=== PATIENT | female | born 1955 | race Caucasian/White ===

== ENCOUNTER 2017-07-15 14:44 | Inpatient (IN) | payer OTHER ==
[~2017-07-15] VITALS: Ht 172.7 cm; Wt 113.8 kg
[~2017-07-15 14:44] MED LIST: APAP/CODEINE PO; ASPI81TA16 PO; CHOL200025 PO; CYCL10TA9 PO; DICL100G26 TOPICAL; DICY20TA10 PO; LOSA100T29 PO; METF500T4 PO; MVI; OMEP40CA36 PO; ROSU40TA PO
[2017-07-15] MEDS ORDERED: ROSU40TA20 PO (15:48)
[2017-07-15] MEDS ORDERED: LOSA100T29 PO (15:48)
[2017-07-15] MEDS ORDERED: ASPI81TA3 PO (15:48)
[2017-07-15 16:01] VITALS: BP 132/64; PULSE 97; RESP 24; O2SAT 97
[2017-07-15] MEDS ORDERED: HYDR-3825 PO (16:17)
[2017-07-15] MEDS ORDERED: HYDROmorphone 0.5 mg/0.5 mL iSecure Syringe IVPUSH ONE (16:45)
[2017-07-15] MEDS ORDERED: HYDROmorphone 0.5 mg/0.5 mL iSecure Syringe IVPUSH PRN ×2 (16:50→20:15)
[2017-07-15] MEDS ORDERED: HYDROcodone-APAP 5-325 mg Tablet PO PRN (17:10)
[2017-07-15] MEDS ORDERED: Alum-Mag Hydrox-Simeth 30 mL Suspension PO PRN (17:10)
[2017-07-15] MEDS ORDERED: Ondansetron 2 mg/mL 2 mL Inj IVPUSH PRN (17:10)
[2017-07-15] MEDS ORDERED: Glucose 40% Oral Gel 15 Gm Tube PO PRN (17:15)
[2017-07-15] MEDS ORDERED: Dextrose 10% 250 ML IV PRN ×2 (17:25→20:18)
[2017-07-15] MEDS: Insulin LISPRO 300 Unit/3 mL Inj SUBQ SCH ×2 (17:30→22:00)
[2017-07-15] MEDS ORDERED: Morphine PCA 1 mg/mL 30 mL Inj IV PRN (17:45)
[2017-07-15] MEDS: 0.9% Sodium Chloride 1,000 ML IV SCH (18:29)
[2017-07-15 18:42] LABS: APPEARANCE,URINE CLEAR (CLEAR,HAZY); COLOR,URINE YELLOW (YELLOW); OCCULT BLOOD,URINE MODERATE (NEGATIVE); UROBILINOGEN,URINE NORMAL (NORMAL)
[2017-07-15] MEDS: Heparin 5,000 Unit/mL Inj SUBQ SCH (18:44)
[2017-07-15 18:52] VITALS: RESP 20; O2SAT 97
--- NOTE | 2017-07-15 19:18 | CCS NOTE ---
[facility] [address] [address] MEDICAL ONCOLOGY OFFICE NOTE PATIENT: LEXY ARANGO : 1955 MR#: [id number] DATE: 07/15/2017 JOB ID: [id number] DATE: 07/15/2017 The patient was admitted through our clinic today for workup of bony lesions in the pelvis and severe pain in the right hip. For details, please refer to my consult note from the office today that led to the admission. I spoke with Dr. Gamino and for today we continue hydration and pain management and if her creatinine improves, she can maybe get contrast enhanced CT scan tomorrow with continuation of hydration support to prevent contrast nephropathy. Her pain appears to be somewhat better after the dose of Dilaudid on the floor.
--- NOTE | 2017-07-15 20:12 | PCM.HPMED ---
Subjective Date of Service Jul 15, 2017 Primary Provider: Admitting Physician: Lv Fisher DO Primary Care Physician: Manuel Villalta DO Attending Physician: Lv Fisher DO Admit Status: Direct Admit Chief Complaint: Right hip pain, metastatic disease unknown primary History of Present Illness: Mrs. Brii Ruiz is 61-year-old white female with past medical history of hypertension, diabetes, CAD, anxiety disorder presenting as a direct admit from Dr. Magallanes's office. Patient has had pain in her hip or to 3 months, was seen by her PCP for some time, apparently I will initiate treatments have failed and they have ordered an MRI which showed concern for metastatic disease prompting referral to the cancer Center. She was visiting with Dr. Magallanes for the first time today and she was noted to be in terrible severe pain even as she was getting out of her car. She was given hydrocodone, which she says has she has not taken in 2 days due to that medication making him feel anxious. Patient states that she has been taking Tylenol 3, which helped some. She also has chronic right hip pain. She states that she has no GI, urine symptoms. She denies shortness of breath large lumps or lymph nodes anywhere in her body, recent fevers or chills, recent weight loss or weight gain. She does endorse tingling in her feet and fingers which apparently is chronic for her. She denies edema in her legs. She has no headaches, numbness tingling otherwise, or dizziness. Her vital signs on arrival were stable temperature is 36.5 respirations 24 pulse 97 she was saturating fully on room air at 97%, blood pressure 132/64. Records reveal MRI pelvis that was taken on 06/26/17 showed "Several marrow space occupying lesions involve the right femoral head and neck, as well as the right ischial tuberosity, and posterior left femoral head and neck. The largest lesion involves the right femoral neck, with concomitant risk of pathologic fracture. Patchy peripheral interstitial edema within the right hip adductor musculature, presumably reactive to the nearby marrow space occupying lesions." It appears that lab work was ordered this a.m. that reveals white count of 12.6 , hemoglobin of 12.3, hematocrit 36.6, platelets 207, sodium 134 potassium 4.1 chloride 100 bicarbonate 18 B UN 35 and creatinine 1.87 increased from a baseline of 1.49 on 06/19/17. Patient also tells me that she was recently diagnosed diabetic. Review of Systems: Complete review of systems performed, pertinent positives and negatives per history of present illness, all other systems reviewed and are negative. Allergies Coded Allergies: Penicillins (Verified Allergy, Severe, facial swelling, 07/15/17) clindamycin (Verified Allergy, Severe, itching / hives, 07/15/17) Home Medications Patient's home medications included Vicodin, Tylenol 3, baby aspirin daily, metformin 500 mg twice a day by mouth, omeprazole 40 mg daily, Crestor 40 mg PMH Hyperlipidemia, hypertension, diabetes mellitus type II, CAD status post bypass 2001, anxiety, restless legs Surgical History Left hip surgery in 2011 to repair a Tendon, cholecystectomy in 2010, open heart surgery in 2001 Family History Remarkable for mother who at age 50 with heart disease and diabetes Father got diagnosed with colon cancer at age 63 Social History Occupation: used to work as a [employer] Hx Alcohol Use: No Hx Substance Use: No Hx Tobacco Use: No (quit Thursday the . has a patch on at this time.) Smoking Status: Current Every Day Smoker, Heavy Tobacco Smoker Living Arrangement: with Family Additional Information Currently on disability due to right hip pain Exam Vital Signs Vital Sign - Last Date Time Temp Pulse Resp B/P Pulse Ox O2 Delivery O2 Flow Rate FiO2 07/15/17 16:01 36.5 97 24 132/64 97 Room Air Exam General: No acute distress, pleasant, appropriately interactive HEENT: Normocephalic, atraumatic. External ears without defect. Pupils equal, round, and reactive to light and accommodation. Anicteric sclerae, moist conjunctivae, and no lid lag. Oropharynx free of erythema and cobble stoning with moist mucosa. Neck: Supple with full range of motion. No jugular venous distension. No bruits. No thyromegaly. Cardiovascular: Regular rate and rhythm with no murmurs, rubs, or gallops appreciated Pulmonary: Clear to auscultation bilaterally with no crackles, wheezes, or rhonchi. Normal respiratory effort with no use of accessory muscles. Abdomen: Bowel tones present. Soft, mildly tender diffusely, nondistended. No hepatosplenomegaly or masses appreciated. Extremities: No clubbing, cyanosis, edema, or lymphadenopathy appreciated. Skin: Normal temperature, turgor, and texture; no rash, ulcers, or subcutaneous nodules appreciated. Neurological: Cranial nerves grossly intact. and sensory function within normal limits. No known gait impairment. Symmetric a Achillis reflexes Musculoskeletal: 4/5 in left lower extremity, 5 over 5 in right. Psychiatric: Normal mood and affect. Alert and oriented to person, place, and time. Assessment & Plan This is a 61-year-old female presenting today after having been seen at the cancer center for an MRA results that showed metastasis in the hip pelvic region. She was in such severe pain that she was sent to the hospital for adequate pain control while she is being worked up for a primary and treatment. 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 -- Consult oncology -- Normal saline 100 mL per hour for hydration to improve kidney function -- We will consider CT chest abdominopelvic once renal function improves Acute on chronic kidney injury present on admission active -- Chronic kidney disease stage III per her prior records -- IV fluid hydration as above -- Hold nephrotoxic medications Diabetes mellitus type II chronic active -- Hold home medication metformin by mouth -- No scale sliding scale -- Diabetic diet Hypertension chronic presumed stable -- Hold home medications losartan due to poor renal function- -- amlodipine 5 mg by mouth instead Hyperlipidemia chronic presumed stable -- We will continue home medication Anxiety chronic presumed stable -- We will continue to monitor, patient is currently not experiencing anxiety CAD status post bypass chronic stable -- Continue aspirin, Crestor Chronic kidney disease stage III acutely worsened -- Management as above High risk medication: Morphine pump DVT prophylaxis with heparin subcutaneous 3 times a day CODE STATUS full code Alternate decision-maker , then the 3 children Patient is admitted under Inpatient status with expected length of stay greater than 2 midnights due to severity of presenting symptoms, risk of adverse event, and complexity of treatment plan. Pain Evaluation: Adequate Pain Control Resuscitation Status: CPR: Attempt Resuscitation ( is alternate decision -maker) Time spent 45 minutes Tiffanie Gamino DO Jul 15, 2017 17:13
[2017-07-15] MEDS ORDERED: HYDROmorphone PCA 0.2 mg/mL 30 mL Inj IV PRN (20:15)
[2017-07-15 20:16] VITALS: BP 138/75; PULSE 107; RESP 24; O2SAT 99
[2017-07-15 22:05] VITALS: RESP 18; O2SAT 98
[2017-07-16] VITALS (10 sets, daily range): BP systolic 110–130; BP diastolic 62–80; PULSE 81–95; RESP 14–20; O2SAT 93–99
[2017-07-16] MEDS: Heparin 5,000 Unit/mL Inj SUBQ SCH ×3 (01:27→17:50)
[2017-07-16] MEDS: 0.9% Sodium Chloride 1,000 ML IV SCH ×2 (03:08→09:14)
[2017-07-16] MEDS: Pantoprazole 40 mg ER24 Tablet PO SCH (06:30)
[2017-07-16] MEDS: Insulin LISPRO 300 Unit/3 mL Inj SUBQ SCH ×4 (08:00→21:38)
--- NOTE | 2017-07-16 12:10 | PCM.CONPAL ---
Date of Service Jul 16, 2017 Date of Hospital Admission: Jul 15, 2017 at 14:44 Date of Palliative Consult: Jul 16, 2017 Requesting Provider: Tiffanie Gamino DO Reason Palliative Care Consult: Pain Reason for Consultation Palliative Care received verbal order from Dr Gamino 07/16/17 to assist with pain management. Patient admitted 07/15/17. Pain is from metastatic cancer of unknown primary invading bone in right hip. Pt has just begun oncology work-up with Dr. Magallanes. [place] () [phone] Edna (daughter) [phone] Hospital Unit @time of consult: Orthopedic/Surgical Care (room 1019) Palliative Care Recommendation Summary of palliative recommendations: -Symptom management (Pain/other): Pain: 1. Change PUMP OILER dilaudid to include a low continuous rate. New settings are: 0.5mg IV dilaudid PUMP OILER (can be dosed q 15 minutes if pt needs it) 0.5mg IV dilaudid q hour 1.0mg IV Bolus from RN on provider order for breakthrough pain 4.0mg/hr Total dose allowed. 2. Anxiety: pt does not have baseline anxiety diagnosis. She has become anxious due to uncontrolled pain. Start 0.5mg ativan po q 3 hours PRN -DPOA/Advanced Directives/POLST: Currently FULL CODE. Palliative Care Team does not plan to engage pt in any advanced planning topics at this time, as pt has not even undergone oncology workup. -Family/emotional support: Good -Spiritual support: not explored today. Patient Goals: 1. She is reluctant to use both pain and anxiety meds. She is afraid of being oversedated or loopy. She wants to be alert. Dr. Singleton and her daughter reassured her that the goal is to reduce her pain. We discussed the control she would have over asking for anxiety pills and pushing her pain button only when she was ready to do so. Palliative Care will round later to reassess effectiveness of pain/anxiety regimen started above. Additional Medical Diagnoses with primary management by Hospitalist team include : 1. Right hip pain secondary to severe metastasis unknown primary, present on admission ongoing-- Consult oncology-- We will consider CT chest abdominopelvic once renal function improves 2. Acute on chronic kidney injury present on admission active-- Chronic kidney disease stage III per her prior records -- Normal saline 100 mL per hour for hydration to improve kidney function--Hold nephrotoxic medications 3. Diabetes mellitus type II chronic active 4. Hypertension chronic presumed stable 5. Hyperlipidemia chronic presumed stable 6. CAD status post bypass chronic stable-- Continue aspirin, Crestor Problems: Resuscitation Status Resuscitation Status: CPR: Attempt Resuscitation ( is alternate decision -maker) Pt History History of Present Illness Mrs. Brii Ruiz is 61-year-old white lady with past medical history of hypertension and CAD, with a new diagnosis of diabetes, presented as a direct admit from Dr. 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 She was just initiating oncological workup with Dr. Magallanes on 07/15 when she was admitted to [facility]. Pt is a good historian. She reports chronic right hip pain from arthritis and then more progressive, unrelenting pain beginning about 3 months ago. After her PCP tried several medical management plans that were not effective, he sent her for an MRI which showed likely metastatic disease. Imaging: MRI pelvis (06/26/17) showed "Several marrow space occupying lesions involve the right femoral head and neck, as well as the right ischial tuberosity , and posterior left femoral head and neck. The largest lesion involves the right femoral neck, with concomitant risk of pathologic fracture. Patchy peripheral interstitial edema within the right hip adductor musculature, presumably reactive to the nearby marrow space occupying lesions." Hospital Course: She was started on a PUMP OILER morphine infusion and admitted to floor. She developed an allergic reaction (face flushing, anxiety) with morphine and it was replaced with a dilaudid PUMP OILER overnight. Palliative Care was consulted 07/16 to assess and manage pain, which is still severe. On interview with pt and her daughter, she admits to being very anxious, she is afraid of taking the pain medicine, but also afraid of the pain when she doesn' t take it. Review of PUMP OILER dilaudid use with her RN shows she only used 4.2mg dilaudid IV in last 12 hours, which is about 0.35mg/hour. Her pain is severe, sharp, 10/10 and centered at her right hip with radiation to low back and down her leg. 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 has a patch on at this time.) Smoking Status: Current Every Day Smoker, Heavy Tobacco Smoker Living Arrangement: with Family, with 3 daughters Additional Information Currently on disability due to right hip pain Medications Current Medications: Current Medications Hydromorphone HCl 0.5 mg ONCE PRN IVPUSH; Start 07/15/17 at 16:50; Stop at 17:51; Status DC Heparin Sodium (Porcine) 5000 unit 5,000 unit Q8H SUBQ Last administered on 07/16 09:15; Admin Dose 5,000 UNIT; Start 07/15/17 at 17:10 Sodium Chloride 1,000 ml @ 100 mls/hr Q10H IV Last administered on 07/16/17 09 :14; Admin Dose 100 MLS/HR; Start 07/15/17 at 17:08 Al Hydrox/Mg Hydrox/Simethicone 30 ml Q6H PRN PO; Start 07/15/17 at 17:10 Ondansetron HCl 4 to 8 mg Q4H PRN IVPUSH; Start 07/15/17 at 17:10 Senna 17.2 mg BID PRN PO; Start 07/15/17 at 17:10 Acetaminophen/ Hydrocodone Bitart 1 tablet Q4H PRN PO; Start 07/15/17 at 17:10 Cyclobenzaprine HCl 10 mg HS PO Last administered on 07/15/17 22:03; Admin Dose 10 MG; Start 07/15/17 at 21:00 Diclofenac Sodium 1 applic PRN TOPICAL; Start 07/15/17 at 17:30; Stop 07/15/17 at 20:19; Status DC Pantoprazole 40 mg 0630 PO; Start 07/16/17 at 06:30 Insulin Human Lispro Nutritional Dose to be given pr... [facility] SUBQ; Start at 17:30 Dextrose/Water 250 ml @ 750 mls/hr PRN PRN IV; Start 07/15/17 at 17:25; Stop 07/15/17 at 20:18; Status DC Amlodipine Besylate 5 mg DAILY PO; Start 07/16/17 at 08:30 Rosuvastatin Calcium 40 mg HS PO Last administered on 07/15/17t 22:03; Admin Dose 40 MG; Start 07/15/17 at 21:00 Morphine Sulfate Dose Range: 1 mg to 2 mg Q1H PRN IVPUSH; Start 07/15/17 at 17: 45; Stop 07/15/17 at 20:15; Status DC Naloxone HCl 0.04 mg Q1MIN PRN IVPUSH; Start 07/15/17 at 17:45 Metoclopramide HCl 5 mg Q6H PRN IVPUSH; Start 07/15/17 at 17:45 Diphenhydramine HCl Dose Range: 12.5 mg... Q4H PRN IVPUSH; Start 07/15/17 at 17 :45 Hydromorphone HCl Dose Range: 0.5 mg to 1 mg Q1H PRN IVPUSH; Start 07/15/17 at 20:15; Stop 07/16/17 at 11:40; Status DC Diclofenac Sodium 1 applic QID PRN TOPICAL; Start 07/15/17 at 20:19 Lorazepam 0.5 mg Q3 PRN PO; Start 07/16/17 at 11:50; Status UNV Scheduled Aspirin Chew (Aspirin Chew) 81 Mg Chew 81 MG PO DAILY Cholecalciferol (Vitamin D3) (Vitamin D3) 2,000 Unit Tablet 2,000 UNIT PO DAILY Cyclobenzaprine (Cyclobenzaprine) 10 Mg Tablet 10 MG PO DAILY Diclofenac Gel (Diclofenac Gel) 100 Gm Tube 1 APPLIC TOPICAL PRN Metformin (Metformin) 500 Mg Tablet 500 MG PO BID Omeprazole (Omeprazole) 40 Mg Capsule.dr 40 MG PO DAILY Scheduled PRN Hydrocodone-Acetaminophen 7.5-325 mg (Hydrocodone-Acetaminophen 7.5-325 mg) 1 Each Tablet 1 EACH PO Q4-6H PRN PRN For Pain Miscellaneous Medications Losartan Potassium (Losartan Potassium) 100 Mg Tablet 100 MG PO Rosuvastatin Calcium (Rosuvastatin Calcium) 40 Mg Tablet 40 MG PO Objective Findings Exam Vital Sign - Last Date Time Temp Pulse Resp B/P Pulse Ox O2 Delivery O2 Flow Rate FiO2 07/16/17 11:16 16 07/16/17 09:15 36.3 82 116/72 96 Room Air Intake and Output 07/15/17 07/15/17 07/16/17 Cumulative From/Thru 15:00 23:00 07:00 07/15/17 15:57 - 07/16/17 06:41 Intake Total 1433 ml 1433 ml Output Total 700 ml 700 ml Balance 733 ml 733 ml Intake Oral 600 ml 600 ml IV Total 833 ml 833 ml Output Urine Total 700 ml 700 ml # Bowel Movements 0 0 Objective General: grimacing, panting when trying to ambulate from bathroom to bed on crutches, appropriately interactive, describes 10/10 pain now and in last 24 hours. Lowest pain in last 24 hours: HEENT: Normocephalic, atraumatic. External ears without defect. Pupils equal, round, and reactive to light and accommodation. Anicteric sclerae, moist conjunctivae, and no lid lag. Oropharynx free of erythema with moist mucosa. Neck: Supple with full range of motion. No jugular venous distension. No bruits. No thyromegaly. Cardiovascular: Regular rate and rhythm with no murmurs, rubs, or gallops appreciated Pulmonary: Clear to auscultation bilaterally with no crackles, wheezes, or rhonchi. Normal respiratory effort with no use of accessory muscles. Abdomen: Bowel tones present. Obese, Soft, nondistended. No hepatosplenomegaly or masses appreciated. Extremities: No clubbing, cyanosis, edema, or lymphadenopathy appreciated. Skin: Normal temperature, turgor, and texture; no rash, ulcers, or subcutaneous nodules appreciated. Neurological: Cranial nerves grossly intact and sensory function within normal limits. Psychiatric: Anxious. Alert and oriented to person, place, and time. Lab/Diagnostics Imaging: MRI pelvis (06/26/17) showed "Several marrow space occupying lesions involve the right femoral head and neck, as well as the right ischial tuberosity , and posterior left femoral head and neck. The largest lesion involves the right femoral neck, with concomitant risk of pathologic fracture. Patchy peripheral interstitial edema within the right hip adductor musculature, presumably reactive to the nearby marrow space occupying lesions." Time spent Total time 70 minutes; >50% face to face with patient and/or family, providing counselling regarding plans and recommendations, and in care coordination with his/her medical teams. Roseanna iSngleton MD Jul 16, 2017 12:10 Roseanna Singleton MD Jul 16, 2017 12:10
[2017-07-16] MEDS: HYDROmorphone PCA 0.2 mg/mL 30 mL Inj IV PRN ×2 (14:04→23:23)
[2017-07-16] MEDS: LORazepam 0.5 mg Tablet PO PRN ×3 (14:41→21:23)
--- NOTE | 2017-07-16 14:47 | CCS NOTE ---
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 Because of her concern about not tolerating morphine very well, causing her agitation, she requested to be switched to Dilaudid, which was done. She has not had any falls. Palliative Care has been consulted as well. Her labs of this morning with hydration show improvement with creatinine down to 1.35 from previously 1.8 yesterday. Her free kappa and lambda light chain showed a normal ratio of kappa over lambda of 1.27, making multiple myeloma unlikely in the differential diagnosis. ASSESSMENT AND PLAN: A 61-year-old lady with a new presentation of metastatic disease to the pelvic bone causing severe pain in the right hip that was excruciating and the patient has not been able to manage herself at home and ambulate. I saw her in consultation in the office yesterday and had to admit her directly. Her renal function has somewhat improved and it is now even slightly better than her usual baseline. I think we are okay to now proceed with the CT scan of chest, abdomen, and pelvis with contrast, both IV and oral. She should continue her hydration at 200 mL an hour to reduce nephrotoxicity risk. The patient says that she tends to have nausea issues with oral contrast, but I asked her to give it a try. Multiple myeloma in the differential diagnosis is now very unlikely given the normal free light chain assay ratio and therefore as expected the focus is metastatic solid tumor. I am hopeful that a CT can be done today to search for a primary as well as evaluate the femur/ischial area to rule out pathologic fracture.
--- NOTE | 2017-07-16 14:53 | PCM.PNMED ---
Subjective Date of Service Jul 16, 2017 Subjective Patient is seen in examined. She states that she has a same level of anxiety she has experienced before with hydrocodone at home and thus asked for morphine to be changed to Dilaudid pump overnight. She feels that her pain is well- controlled on the Dilaudid pump. She was seen by palliative care earlier today. She initially refused to drink by mouth I contrast for CT, but it appears that she agreed after discussed it with her. Renal function has improved from baseline. She has no other concerns Exam Vital Signs Vital Sign - Last Date Time Temp Pulse Resp B/P Pulse Ox O2 Delivery O2 Flow Rate FiO2 07/16/17 06:43 99 07/16/17 05:25 36.3 81 20 117/68 Room Air Intake and Output 07/15/17 07/15/17 07/16/17 Cumulative From/Thru 15:00 23:00 07:00 07/15/17 15:57 - 07/16/17 06:41 Intake Total 1433 ml 1433 ml Output Total 700 ml 700 ml Balance 733 ml 733 ml Intake Oral 600 ml 600 ml IV Total 833 ml 833 ml Output Urine Total 700 ml 700 ml # Bowel Movements 0 0 Exam General: No acute distress, pleasant, appropriately interactive HEENT: Normocephalic, atraumatic. External ears without defect. Anicteric sclerae, moist conjunctivae, and no lid lag. Oropharynx free of erythema and cobble stoning with moist mucosa. Neck: Supple with full range of motion. No jugular venous distension. No bruits. No thyromegaly. Cardiovascular: Regular rate and rhythm with no murmurs, rubs, or gallops appreciated Pulmonary: Clear to auscultation bilaterally with no crackles, wheezes, or rhonchi. Normal respiratory effort with no use of accessory muscles. Abdomen: Bowel tones present. Soft, mildly tender diffusely, nondistended. No hepatosplenomegaly or masses appreciated. Extremities: No clubbing, cyanosis Skin: Warm and dry Neurological: No focal deficits Musculoskeletal: Patient states that she is able to ambulate with the help of crutches Psychiatric: Normal mood and affect. Alert and oriented to person, place, and time. IVs and Medications IV Fluids Normal saline 100 mL per hour Medications Reviewed: Medications were reviewed in detail Lab and Diagnostics Result Diagram: 07/16/17 0546 X-Rays, CTs and MRIs PROCEDURE: CT CHEST, ABDOMEN AND PELVIS [facility] CONTRAST ([id number]) INDICATIONS: malignancy, need to find primary TECHNIQUE: After the administration of oral and intravenous contrast, 5 mm thick sections acquired from the lung apices to the symphysis. 5 mm coronal and sagittal reformats were performed, with additional 7 mm coronal MIP reformats through the lungs. For radiation dose reduction, the following was used: automated exposure control, adjustment of mA and/or kV according to patient size. IMPRESSION: 1. Subcentimeter nodular radiopacities at the base of the right upper lobe. Differential considerations include infection and neoplasm. 2. 2 foci of masslike consolidation in the left lower lobe and left hilar lobe mass with moderate narrowing of the bronchi. These findings are highly suspicious for primary pulmonary neoplasm with mediastinal priya metastasis. If clinically indicated, the larger pulmonary lesion may be amenable to percutaneous CT-guided biopsy. Alternatively, bronchoscopic biopsy may be possible for the hilar mass. 3. Low density mass within the left atrium which is increased when compared with the study dated 03/08/14. This finding suggests atrial myxoma. Cardiology consult recommended. 4. Bony destruction and pathologic fracture of the right ischium. Similar destructive lesions are present within the right femoral head and proximal right diaphysis. These findings are most consistent with bony metastasis. These findings were discussed with Dr. Gamino at 3:42 PM on 07/16/17. Dictated by: Alison Cruz M.D. on 07/16/2017 at 15:19 Approved by: Alison Cruz M.D. on 07/16/2017 at 15:48 -------- PROCEDURE: X-RAY RIGHT FEMUR, TWO VIEWS ([id number]) INDICATIONS: to check for down stream fracture TECHNIQUE: 2 views of the femur were acquired. COMPARISON: None. FINDINGS: Bones: No fractures or dislocations. No suspicious bony lesions. Soft tissues: No suspicious soft tissue calcifications or masses. IMPRESSION: No fracture of the femur is found there is moderately severe to severe medial compartment degenerative knee joint osteoarthritis at the right knee with near [id number] articulation. Dictated by: Redd Burdick M.D. on 07/16/2017 at 19:12 Approved by: Redd Burdick M.D. on 07/16/2017 at 19:13 Assessment & Plan This is a 61-year-old female presenting today after having been seen at the cancer center for an MRA results that showed metastasis in the hip pelvic region. She was in such severe pain that she was sent to the hospital for adequate pain control while she is being worked up for a primary and treatment. 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 Tan. -- Consult oncology: The patient 's recommendations -- Normal saline 100 mL per hour for hydration to improve kidney function -- CT chest abdominopelvic with by mouth and IV contrast ordered, discussed case with : Dr Cruz called with the results, most likely lung primary , atrial myxoma increased in size since 2013, pathalogical ischial fracture -- Discussed findings with Dr. Michaels, who requests CT guided bx tomorrow AM. Order is placed, case mgmt notified. -- Cardiology is consulted, Dr. Holman asked for an echo. Will see the patient. Later Dr. Holman said pt did not tolerate the echo due to rib pain. -- Femur x-ray ordered and showed no concern for R Femur fx. I personally reviewed this x-ray. -- Palliative care is contacted, they have seen the patient. We appreciate the recommendations. -- Dr. Magallanes would also like a brain scan/MRI, bone scan. I have discussed this with Pamela from . Will follow-up 07/17 AM Acute on chronic kidney injury present on admission resolved -- Chronic kidney disease stage III per her prior records -- IV fluid hydration as above, plan to continue through one more day after the CT scan -- Hold nephrotoxic medications -- Patient is better than her baseline of 1.49 creatinine -- We have gone ahead and completed the CT chest/abdomen/pelvic with contrast , results as above Diabetes mellitus type II chronic active -- Hold home medication metformin by mouth -- No scale sliding scale -- Diabetic diet Hypertension chronic presumed stable -- Hold home medications losartan due to poor renal function- -- amlodipine 5 mg by mouth instead -- We will reinstate home medication after one day after CT scan Hyperlipidemia chronic presumed stable -- We will continue home medication Anxiety chronic presumed stable -- Ativan 0.5 3 times a day when necessary by mouth for palliative care CAD status post bypass chronic stable -- Continue aspirin, Crestor Chronic kidney disease stage III acutely worsened -- Management as above High risk medication: Dilaudid pump DVT prophylaxis with heparin subcutaneous 3 times a day CODE STATUS full code Alternate decision-maker , then the 3 children Patient is admitted under Inpatient status with expected length of stay greater than 2 midnights due to severity of presenting symptoms, risk of adverse event, and complexity of treatment plan. Pain Evaluation: Adequate Pain Control Resuscitation Status: CPR: Attempt Resuscitation ( is alternate decision -maker) Time spent 25 minutes Tiffanie Gamino DO Jul 16, 2017 08:01
--- NOTE | 2017-07-16 15:50 | DRSVH ---
PROCEDURE: CT CHEST, ABDOMEN AND PELVIS [facility] CONTRAST ([id number]) INDICATIONS: malignancy, need to find primary TECHNIQUE: After the administration of oral and intravenous contrast, 5 mm thick sections acquired from the lung apices to the symphysis. 5 mm coronal and sagittal reformats were performed, with additional 7 mm c oronal MIP reformats through the lungs. For radiation dose reduction, the following was used: autom ated exposure control, adjustment of mA and/or kV according to patient size. COMPARISON: [facility], CT, CHEST ANGIO-PE, 03/08/2014, 16:12. FINDINGS: Image quality: Excellent. CHEST: Lungs and pleura: Multiple focal nodular radiopacities are present within the posterior aspect of the right upper lobe (series 4, image 22). The largest nodule measures 8 mm in diameter. Masslike consol idation is present within the superior segment of the left lower lobe which measures 2.8 cm in diamet er (series 4, image 26). A smaller wedge-shaped radiopacities present within the left lower lobe whic h measures 0.9 cm in diameter. There is a small low density left pleural effusion. Mediastinum: Heart size is normal. There is a circumscribed, hypodense 3.2 x 3.6 x 3.0 cm circumscri bed mass within the left atrium (series 2, image 32). This was present on the chest CT dated 03/08/14 where it measured 2.2 x 1.7 cm in the axial plane. There No pericardial effusion. There is a heteroge neously enhancing left hilar mass which encases the left segmental bronchi and results in mild bronch ial narrowing. The there are multiple shotty mediastinal nodes, the largest of which are in the subca rinal region and measure 1.4 cm in diameter. No right hilar adenopathy. Thoracic aorta and central p ulmonary arteries are normal in size. The thoracic aorta Esophagus is normal in caliber. No hiatal hernia. Chest wall: Patient is status post median sternotomy. No axillary or supraclavicular adenopathy by si ze criteria. Thyroid gland is unremarkable. ABDOMEN: Solid organs: Liver and spleen are normal in size and enhancement. Focal fat is present in the falci form ligament. Gallbladder is surgically absent. Biliary system is non dilated. Pancreas enhances normally. No adrenal nodules. Kidneys demonstrate normal size and enhancement, without hydronephros is. Low-density cystic lesions are present within the left kidney which likely represent simple edgardo l cysts but are incompletely characterized. Peritoneum and bowel: Bowel loops demonstrate normal wall thickness and caliber. The appendix is th in walled and gas filled. No free fluid or air. Nodes and vessels: No retroperitoneal or mesenteric adenopathy by size criteria. Aorta and inferior vena cava are normal in size. There are scattered atheromatous calcifications throughout the aorta and iliac arteries bilaterally. Miscellaneous: No ventral hernias. PELVIS: Genitourinary: Bladder wall thickness is normal. Miscellaneous: No inguinal hernias or adenopathy. Bones: There is a destructive expansile lytic lesion is present within the posterior right ischium an d inferior obturator ring. A pathologic fracture is present. A similar-appearing lesion is present wi thin the posterior aspect of the right femoral head and the anterior aspect of the right femoral diap hysis. IMPRESSION: 1. Subcentimeter nodular radiopacities at the base of the right upper lobe. Differential consideratio ns include infection and neoplasm. 2. 2 foci of masslike consolidation in the left lower lobe and left hilar lobe mass with moderate ryan rowing of the bronchi. These findings are highly suspicious for primary pulmonary neoplasm with media stinal priya metastasis. If clinically indicated, the larger pulmonary lesion may be amenable to perc utaneous CT-guided biopsy. Alternatively, bronchoscopic biopsy may be possible for the hilar mass. 3. Low density mass within the left atrium which is increased when compared with the study dated 03/08. This finding suggests atrial myxoma. Cardiology consult recommended. 4. Bony destruction and pathologic fracture of the right ischium. Similar destructive lesions are pre sent within the right femoral head and proximal right diaphysis. These findings are most consistent w ith bony metastasis. These findings were discussed with Dr. Gamino at 3:42 PM on 07/16/17. Dictated by: Alison Cruz M.D. on 07/16/2017 at 15:19 Approved by: Alison Cruz M.D. on 07/16/2017 at 15:48
--- NOTE | 2017-07-16 19:14 | DRSVH ---
PROCEDURE: X-RAY RIGHT FEMUR, TWO VIEWS ([id number]) INDICATIONS: to check for down stream fracture TECHNIQUE: 2 views of the femur were acquired. COMPARISON: None. FINDINGS: Bones: No fractures or dislocations. No suspicious bony lesions. Soft tissues: No suspicious soft tissue calcifications or masses. IMPRESSION: No fracture of the femur is found there is moderately severe to severe medial compartmen t degenerative knee joint osteoarthritis at the right knee with near [id number] articulation. Dictated by: Redd Burdick M.D. on 07/16/2017 at 19:12 Approved by: Redd Burdick M.D. on 07/16/2017 at 19:13
[2017-07-16 20:54] LABS: INR 0.98 ratio
[2017-07-17] VITALS (15 sets, daily range): BP systolic 114–152; BP diastolic 65–93; PULSE 83–95; RESP 12–20; O2SAT 83–100
[2017-07-17] MEDS: Heparin 5,000 Unit/mL Inj SUBQ SCH (01:46)
--- NOTE | 2017-07-17 03:41 | CONS ---
[address] [address] CONSULTATION REPORT PATIENT: LEXY ARANGO : 1955 MR#: [id number] ADMIT: 07/15/2017 JOB ID: [id number] DATE OF SERVICE: 07/16/2017 CHIEF COMPLAINT: Abnormal CT scan. 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 As part of working up this pain crisis, she had a femur x-ray and a CT of the chest, abdomen and pelvis which, unfortunately, showed what appears to be a left atrial myxoma as well as some lung abnormalities, concerning for malignancy. Cardiology is consulted to assist with management. The patient says that she has documented coronary artery disease. She had coronary bypass graft surgery in [address] Brooke Henson. That surgery was triggered by the awareness of palpitations. Since then, she has had shortness of breath for about two weeks, but prior to that was doing well. PAST MEDICAL/SURGICAL HISTORY: 1. Coronary artery disease, status post CABG x2 in 2001. Her surgical anatomy is CABRERA to LAD and left radial to OM. 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 Intravascular ultrasound showed that the left main had a luminal diameter of 2.5 cm, a cross-sectional area of 7 mm. 2. 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 3. Diabetes diagnosed in May 2017. 4. Generalized anxiety disorder. 5. Diverticulosis of sigmoid colon. 6. Internal hemorrhoids. 7. Cholecystectomy. FAMILY HISTORY: Cerebral palsy, emphysema, colon cancer in her father in his 60s and early-onset CAD in mother. SOCIAL HISTORY: The patient is a former smoker; she quit in March 2016. REVIEW OF SYSTEMS: Significant for anxiety, fatigue, shortness of breath for two weeks and severe hip pain. Otherwise, a 10-point review of systems is negative. ALLERGIES: 1. PENICILLIN. 2. CLINDAMYCIN. MEDICATIONS: Current medications in the hospital: 1. Crestor 40 mg daily. 2. Ativan as needed. 3. Flexeril 10 mg q.h.s. 4. Zofran as needed. 5. Amlodipine 5 mg daily. 6. Lispro sliding scale insulin. 7. Protonix 40 mg daily. 8. Voltaren topical gel as needed. Home medications: 1. Aspirin 81 mg daily. 2. Crestor 40 mg daily. 3. Cozaar 100 mg daily. 4. Metformin 500 mg twice a day. ASSESSMENT AND PLAN: In summary, this is a 61-year-old with a pain crisis and a couple of abnormalities noted on her CT scan, for which Cardiology is consulted, including atrial myxoma as well as prior sternotomy and ring marker for where the radial graft to OM is noted. The myxoma measures about 3 cm in diameter and it appears to attach to the interatrial septum by a stalk. The patient and I discussed any prior history that she may have had embolic phenomena and she denies this. Certainly, there is no note of myxoma mentioned on her coronary bypass graft surgery report from 2001. Echo showed preserved LV systolic function and this imaging modality confirmed the presence of a myxoma, but the technical aspect of the imaging was limited by severe pain during the apical images and some concern that maybe she has rib lesion that are preventing comfortable experience during the exam. So, those images were deferred. Atrial myxoma: The patient has a large lesion which puts her at risk for embolic phenomenon. Luckily, the patient has not had embolic phenomenon yet. Under normal circumstances, this lesion would warrant evaluation by CT surgeons to discuss risks, benefits and alternatives of left atrial myxoma resection to prevent embolic phenomenon in the future. However, given abnormal lung mass and possible metastatic disease, this additional heart surgery may not be in the patient's best interest. This certainly does not appear to be a life-threatening emergency. Myxoma was previously noted on a CT PE protocol performed in February 2014, but it has grown slightly from 2 cm in diameter to now 3 cm in diameter. Coronary artery disease: This appears to be a rare phenomenon of congenitally small left main lesion. Her most recent ischemic evaluation performed in 2011, on personal review, showed normal stress images with no focal wall motion abnormalities. Rest images are not available for review. Unfortunately, no prior echo is available for review, but we can request that from Dr. Willard's office. I think it is okay to hold aspirin in this patient for possible biopsy. I agree with continuing Crestor and her hypertensive medication. Right now, beta priyank is on hold, but I think, in the [facility], she may benefit from beta rpiyank for arrhythmia prevention. At this time, we recommend outpatient cardiology consultation and outpatient cardiothoracic surgery followup. We will sign off, but we are available for questions. Thank you very much for the opportunity to participate in this patient's care.
[2017-07-17] MEDS: 0.9% Sodium Chloride 1,000 ML IV SCH ×2 (04:17→10:29)
[2017-07-17] MEDS: Pantoprazole 40 mg ER24 Tablet PO SCH (05:35)
[2017-07-17] MEDS: HYDROmorphone PCA 0.2 mg/mL 30 mL Inj IV PRN ×2 (06:37→14:20)
[2017-07-17] MEDS: Insulin LISPRO 300 Unit/3 mL Inj SUBQ SCH ×4 (08:00→22:00)
[2017-07-17] MEDS ORDERED: fentaNYL-PF 50 mCg/mL 2 mL Inj IVPUSH PRN (08:55)
[2017-07-17] MEDS ORDERED: 0.9% Sodium Chloride 250 ML IV SCH (08:55)
[2017-07-17] MEDS: LORazepam 0.5 mg Tablet PO PRN ×3 (09:04→19:56)
--- NOTE | 2017-07-17 11:29 | DRSVH ---
PROCEDURE: CT-GUIDED BIOPSY OF THE LUNG OR MEDIASTINUM ([id number]) Sedation analgesia for 30 minutes. INDICATIONS: lung mass biopsy TECHNIQUE: The indications, alternatives, benefits, risks, and possible complications of the procedure were comm unicated to the patient. Informed written consent from the patient was obtained and placed in the art. Continuous EKG and hemodynamic monitoring was started by trained personnel. For radiation dose reduction, the following was used: automated exposure control, adjustment of mA and/or kV according to patient size. 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 The appropriate site for percutaneous access to the biopsy target was marked, was prepped and d raped sterilely, and was infused with local anaesthesia. Under CT guidance, a core biopsy trocar and needle set was advanced to the biopsy target, and specimen(s) were obtained. The trocar and needle were then removed, and the patient was sent for post-procedure monitoring. COMPARISON: None. FINDINGS: Biopsy site: Left lung Needle: 20 gauge biopsy needle with introducer trocar. Number of passes: 4 Medications: 1% lidocaine for local anaesthesia. IV Fentanyl and Versed for conscious sedation for 30 minutes (see nursing record). Complications: None. IMPRESSION: Successful CT-guided biopsy of a left lung mass. Dictated by: Alsion Cruz M.D. on 07/17/2017 at 11:27 Approved by: Alison Cruz M.D. on 07/17/2017 at 11:28
--- NOTE | 2017-07-17 11:44 | DRSVH ---
PROCEDURE: MRI BRAIN WITH AND WITHOUT CONTRAST ([id number]) INDICATIONS: Mets TECHNIQUE: Noncontrast axial T1 spin echo, axial T2 fast spin echo, sagittal and axial FLAIR, coronal T2 fast sp in echo, axial gradient echo, axial diffusion and ADC through the brain. After the administration of contrast, axial and coronal T1 spin echo with fat saturation through the brain. COMPARISON: None. FINDINGS: Image quality: Excellent. CSF spaces: Basal cisterns are patent. No extra-axial fluid collections. Ventricles are normal in size and shape. Brain: No midline shift. No intracranial bleeds or masses. No abnormal intracranial enhancement. There is mild cerebral volume loss for age. There is nonenhancing periventricular white matter chron ic small vessel ischemic change. The brainstem appears normal. Diffusion-weighted images demonstrat e no acute ischemic insults. No chronic ischemic insults. Normal intravascular flow voids are prese nt. Skull and face: An enhancing, expansile bone lesion compatible with osseous metastasis is present in the left posterior parietal bone, series 11/image 120 and series 12/image 65. The lesion is estimated at 3.5 cm AP by 1.5 cm transverse by 3.2 cm cranial caudal. There is mild curvilinear enhancement in the soft tissues of the scalp overlying the lesion and in the subadjacent dura. Orbits appear normal . Sinuses: Sinuses and mastoids appear clear. IMPRESSION: 1. 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 2. No metastatic brain disease seen. 3. Degree of cerebral atrophy appears normal for age. There are scattered bright flair signal changes that did not enhance, post consistent with small vessel ischemic change, possibility of demyelinatin g disease not excluded. Dictated by: Gallo Sanchez M.D. on 07/17/2017 at 11:26 Approved by: Gallo Sanchez M.D. on 07/17/2017 at 11:40
--- NOTE | 2017-07-17 12:23 | DRSVH ---
PROCEDURE: X-RAY CHEST ONE VIEW, PORTABLE ([id number]) INDICATIONS: Post biopsy r/o pneumothorax TECHNIQUE: One view of the chest was acquired. COMPARISON: [facility], , CHEST 1VW (PORTABLE), 03/08/2014, 13:55. FINDINGS: Surgical changes and devices: Patient is status post median sternotomy. Lungs and pleura: No pleural effusions or pneumothorax. Lungs are clear. Mediastinum: Mediastinal contours appear normal. Heart size is normal. Bones and chest wall: No suspicious bony lesions. Overlying soft tissues appear unremarkable. IMPRESSION: No pneumothorax after CT guided lung biopsy. Dictated by: Alison Curz M.D. on 07/17/2017 at 12:21 Approved by: Alison Cruz M.D. on 07/17/2017 at 12:22
--- NOTE | 2017-07-17 12:46 | DRSVH ---
[facility] [address] [place] [address] Echocardiogram Report Name: LEXY ARANGO MStudy Date: 07/16/2017 Height: 68 in Hospital Exam Location: [facility] Weight: 234 lb Gender: Female BSA: 2.2 m2 : 1955 Age: 61 yrs BP: 130/80 mmHg Reason For Study: Atrial Myxoma Ordering Physician: Marily HolmanPerformed By: Iris Vang Referring Physician: FREDY RODRIGUES Interpretation Summary Left ventricular systolic function is normal without focal wall motion abnormalities with the ejection fraction visually estimated to be 60-65%. Left ventricular wall thickness is at the upper limits of normal. The right ventricle is not well visualized but grossly appears normal in size with probable normal systolic function. Pulmonary artery pressures cannot be estimated because of the lack of a measurable TR jet velocity. There is a fairly large, echo-homogenous globular mass that appears to be non -mobile, likely broadly attached at the back of the left atrium or along the atrial septum that does not appear to produce any obstruction of the mitral valve. This is suggestive of myxoma; consider KERRI or cardiac MR for further delineation. There is no significant valvular heart disease. Procedure: A two-dimensional transthoracic echocardiogram with color flow and Doppler was performed. The study quality was technically adequate. There is no prior echocardiogram noted for this patient. Focused urgent echocardiogram to assess for atrial myxoma. Limited imaging due to patient discomfort and positioning. The patient was in normal sinus rhythm during the exam. Left Ventricle: The left ventricle is normal in size. Left ventricular wall thickness is at the upper limits of normal. Left ventricular systolic function is normal without focal wall motion abnormalities. The ejection fraction is estimated to be 60-65%. Right Ventricle: The right ventricle is not well visualized. The right ventricle grossly appears normal in size with probable normal systolic function. Atria: There is a fairly large, echohomogenous globular mass that appears to be non-mobile, likely broadly attached at the back of the left atrium or along the atrial septum. There does not appear to be any obstruction of the mitral valve. A mass suggestive of myxoma is noted in the left atrium. Consider KERRI or cardiac MR for further delineation. The right atrium grossly appears normal in size. Mitral Valve: The mitral valve leaflets appear mildly thickened, but open well. There is mild mitral annular calcification. There is trace mitral regurgitation. Aortic Valve: The aortic valve is trileaflet. The aortic valve opens well. No aortic regurgitation is present. Tricuspid Valve: The tricuspid valve is normal. There is trace tricuspid regurgitation. Pulmonary artery pressures cannot be estimated because of the lack of a measurable TR jet velocity. Pulmonic Valve: The pulmonic valve is not well visualized. There is trace pulmonic regurgitation. There is no significant valvular heart disease. Great Vessels: The aortic root is normal size. The ascending aorta is normal in size. The inferior vena cava was not visualized. Pericardium/ Pleura There is no pericardial effusion. There is an anterior echo-free space consistent with a fat pad. There is no pleural effusion. MMode/2D Measurements & Calculations LVIDd LVOT diam LV chen. diameter/BSA LV sys. diameter/BSA : 4.1 cm (cm/m^2): 1.9 (cm/m^2): 1.5 LVIDs asc Aorta Diam : 3.2 cm FS: 20.9 % IVSd : 0.9cm LVPWd : 1.1 cm Doppler Measurements & Calculations LVOT Max Raymundo PA V2 max LV V1 max PG PA V2 mean : 93.7 cm/sec : 58.2 cm/sec : 39.1 cm/sec PA mean PG LV V1 VTI PA pr(Accel) : 0.69 mmHg : 19.0 cm : 21.6 mmHg Reading Physician:12:45 PM
--- NOTE | 2017-07-17 15:03 | PCM.PALLBR ---
Palliative Care Recommendation Summary of palliative recommendations: -Symptom management (Pain/other): 1. Pain: Reviewed use of INDUSTRIAL TRUCK DRIVER dilaudid overnight: used about 14mg IV dilaudid, which is approximately equal to 125mcg/hr fentanyl patch. I recommend starting a 100mcg/hr fentanyl patch today and in 12 hours, turning of the basel/continuous/hourly rate of 0.5mg/hr IV dilaudid. We would then continue the INDUSTRIAL TRUCK DRIVER pump with original settings of: 0.5mg IV dilaudid INDUSTRIAL TRUCK DRIVER (can be dosed q 15 minutes if pt needs it) 1.0mg IV Bolus from RN on provider order for breakthrough pain 4.0mg/hr Total dose allowed If Mrs. Ruiz begins becomes sedated from this dose of fentanyl patch, remove it and replace with 75mcg/hr patch, keeping the INDUSTRIAL TRUCK DRIVER pump at same settings. 2. Anxiety: pt does not have baseline anxiety diagnosis. She has become anxious due to uncontrolled pain. Continue: 0.5mg ativan po q 3 hours PRN -DPOA/Advanced Directives/POLST: Currently FULL CODE. Palliative Care Team does not plan to engage pt in any advanced planning topics at this time, as pt has not even undergone oncology workup. -Family/emotional support: Good -Spiritual support: not explored today. Patient Goals: 1. She is reluctant to use both pain and anxiety meds. She is afraid of being oversedated or loopy. She wants to be alert. Dr. Singleton and her daughter reassured her that the goal is to reduce her pain. We discussed the control she would have over asking for anxiety pills and pushing her pain button only when she was ready to do so. Palliative Care will round later to reassess effectiveness of pain/anxiety regimen started above. Additional Medical Diagnoses with primary management by Hospitalist team include : 1. Right hip pain secondary to severe metastasis unknown primary, present on admission ongoing workup. 2. Acute on chronic kidney injury present on admission active-- Chronic kidney disease stage III per her prior records 3. Diabetes mellitus type II chronic active 4. Hypertension chronic presumed stable 5. Hyperlipidemia chronic presumed stable 6. CAD status post bypass chronic stable-- Continue aspirin, Crestor Problems: Resuscitation Status Resuscitation Status: CPR: Attempt Resuscitation ( is alternate decision -maker) Total time 65 minutes; >50% face to face with patient and/or family, providing counselling regarding plans and recommendations, and in care coordination with his/her medical teams. Specifically, plan for pain management discussed with Dr. Magallanes and floor RN for ptDerek. Palliative Brief Note Date of Service Jul 17, 2017 . Patient Identification: Mrs. Brii Ruiz is 61-year-old white lady with past medical history of hypertension and CAD, with a new diagnosis of diabetes, presented as a direct admit from Dr. 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 She was just initiating oncological workup with Dr. Magallanes on 07/15 when she was admitted to [facility]. Pt is a good historian. She reports chronic right hip pain from arthritis and then more progressive, unrelenting pain beginning about 3 months ago. After her PCP tried several medical management plans that were not effective, he sent her for an MRI which showed likely metastatic disease. Imaging: MRI pelvis (06/26/17) showed "Several marrow space occupying lesions involve the right femoral head and neck, as well as the right ischial tuberosity , and posterior left femoral head and neck. The largest lesion involves the right femoral neck, with concomitant risk of pathologic fracture. Patchy peripheral interstitial edema within the right hip adductor musculature, presumably reactive to the nearby marrow space occupying lesions." Hospital Course: She was started on a INDUSTRIAL TRUCK DRIVER morphine infusion and admitted to floor. She developed an allergic reaction (face flushing, anxiety) with morphine and it was replaced with a dilaudid INDUSTRIAL TRUCK DRIVER overnight. Palliative Care was consulted 07/16 to assess and manage pain, which was still severe. Subsequent scans have revealed she has pathological fracture of right ischium with metastases to the right femoral head and diaphysis, presumed metastases vs. 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 She had an MRI-guided lung biopsy today (07/17) and Cardiology's Dr. Holman has recommended conservative (not surgical) management of the myxoma for now. Dr. Magallanes is arranging for a radiation oncology consult and likely start of palliative radiation as inpatient. Dr. Singleton will review pain management and make some medication changes today (07/17) Subjective: Pita reports much better pain control with 2/10 at rest. It is still 10/10 with movement to use bedside commode or get on/off bed with her crutches (to protect right hip and pelvis). Exam General: sitting up in bed quietly. Appropriately interactive, describes 2/10 pain now, 10/10 pain with movement in last 24 hours. Lowest pain in last 24 hours: 2/10 HEENT: Normocephalic, atraumatic. Pupils equal, round, and reactive to light and accommodation. Anicteric sclerae, moist conjunctivae. Neck: Supple with full range of motion. No jugular venous distension. Cardiovascular: Regular rate and rhythm with no murmurs. Pulmonary: Clear to auscultation bilaterally with no crackles, wheezes, or rhonchi. Normal respiratory effort with no use of accessory muscles. Abdomen: Bowel tones present. Obese, Soft, nondistended. Extremities: No clubbing, cyanosis, edema, or lymphadenopathy appreciated. Skin: Normal temperature, turgor, and texture; no rashes/eccymoses. Neurological: Cranial nerves grossly intact. Psychiatric: Attentive,alert and oriented to person, place, and time. Roseanna Singleton MD Jul 17, 2017 15:02 Roseanna Singleton MD Jul 17, 2017 15:02
--- NOTE | 2017-07-17 16:54 | PCM.PNMED ---
Subjective Date of Service Jul 17, 2017 Subjective Patient is seen and examined. [place] in the room to meet patient and family. Family has a lot of questions, which were addressed. Patient is needing oxygen for sleep, up to 4 L. She is requesting a tucker. Exam Vital Signs Vital Sign - Last Date Time Temp Pulse Resp B/P Pulse Ox O2 Delivery O2 Flow Rate FiO2 07/17/17 04:34 18 96 07/17/17 04:13 36.5 95 152/86 Nasal Cannula 1.00 Intake and Output 07/16/17 07/16/17 07/17/17 Cumulative From/Thru 15:00 23:00 07:00 07/15/17 15:57 - 07/17/17 06:39 Intake Total 600 ml 3131 ml 5164 ml Output Total 650 ml 1200 ml 2550 ml Balance -50 ml 1931 ml 2614 ml Intake Oral 600 ml 960 ml 2160 ml IV Total 2171 ml 3004 ml Output Urine Total 650 ml 1200 ml 2550 ml # Voids 1 1 # Bowel Movements 0 Exam General: Appears sleepy HEENT: NCAT Neck: No JVD, trachea is central HEart: RRR, no s3/s4 sounds Abd: Soft, non tender, non distended Ext: No edema Psych: Pt is mildly anxious Neuro: No focal deficits IVs and Medications IV Fluids NSS 50 cc/hr Medications Reviewed: Medications were reviewed in detail Lab and Diagnostics Result Diagram: 07/16/17202807/17/17 0544 X-Rays, CTs and MRIs PROCEDURE: CT CHEST, ABDOMEN AND PELVIS [facility] CONTRAST ([id number]) INDICATIONS: malignancy, need to find primary TECHNIQUE: After the administration of oral and intravenous contrast, 5 mm thick sections acquired from the lung apices to the symphysis. 5 mm coronal and sagittal reformats were performed, with additional 7 mm coronal MIP reformats through the lungs. For radiation dose reduction, the following was used: automated exposure control, adjustment of mA and/or kV according to patient size. IMPRESSION: 1. Subcentimeter nodular radiopacities at the base of the right upper lobe. Differential considerations include infection and neoplasm. 2. 2 foci of masslike consolidation in the left lower lobe and left hilar lobe mass with moderate narrowing of the bronchi. These findings are highly suspicious for primary pulmonary neoplasm with mediastinal priya metastasis. If clinically indicated, the larger pulmonary lesion may be amenable to percutaneous CT-guided biopsy. Alternatively, bronchoscopic biopsy may be possible for the hilar mass. 3. Low density mass within the left atrium which is increased when compared with the study dated 03/08/14. This finding suggests atrial myxoma. Cardiology consult recommended. 4. Bony destruction and pathologic fracture of the right ischium. Similar destructive lesions are present within the right femoral head and proximal right diaphysis. These findings are most consistent with bony metastasis. These findings were discussed with Dr. Gamino at 3:42 PM on 07/16/17. Dictated by: Alison Cruz M.D. on 07/16/2017 at 15:19 Approved by: Alison Cruz M.D. on 07/16/2017 at 15:48 -------- PROCEDURE: X-RAY RIGHT FEMUR, TWO VIEWS ([id number]) INDICATIONS: to check for down stream fracture COMPARISON: None. FINDINGS: Bones: No fractures or dislocations. No suspicious bony lesions. Soft tissues: No suspicious soft tissue calcifications or masses. IMPRESSION: No fracture of the femur is found there is moderately severe to severe medial compartment degenerative knee joint osteoarthritis at the right knee with near [id number] articulation. Dictated by: Redd Burdick M.D. on 07/16/2017 at 19:12 Approved by: Redd Burdick M.D. on 07/16/2017 at 19:13 --- ROCEDURE: MRI BRAIN WITH AND WITHOUT CONTRAST ([id number]) INDICATIONS: Mets IMPRESSION: 1. 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 2. No metastatic brain disease seen. 3. Degree of cerebral atrophy appears normal for age. There are scattered bright flair signal changes that did not enhance, post consistent with small vessel ischemic change, possibility of demyelinating disease not excluded. Dictated by: Gallo Sanchez M.D. on 07/17/2017 at 11:26 Approved by: Gallo Sanchez M.D. on 07/17/2017 at 11:40 PROCEDURE: CT-GUIDED BIOPSY OF THE LUNG OR MEDIASTINUM ([id number]) Sedation analgesia for 30 minutes. INDICATIONS: lung mass biopsy IMPRESSION: Successful CT-guided biopsy of a left lung mass. Dictated by: Alison Cruz M.D. on 07/17/2017 at 11:27 Approved by: Alison Cruz M.D. on 07/17/2017 at 11:28 Assessment & Plan This is a 61-year-old female presenting today after having been seen at the cancer center for an MRA results that showed metastasis in the hip pelvic region. She was in such severe pain that she was sent to the hospital for adequate pain control while she is being worked up for a primary and treatment. Right hip pain secondary to severe metastasis unknown primary, present on admission ongoing -- Patient was given 0.5 IV Dilaudid at the time of arrival which brought her pain down to 6 out of 10 -- Dilaudid low-dose DIRECTOR OF PERSONNEL pump, settings were changed from continuous by Dr. Tan. -- Consult oncology: WE appreciate 's recommendations -- CT chest abdominopelvic with by mouth and IV contrast ordered, discussed case with : Dr Cruz called with the results, most likely lung primary , atrial myxoma increased in size since 2013, pathological ischial fracture -- CT guided bx was done 8 AM. -- Femur x-ray ordered and showed no concern for R Femur fx. I personally reviewed this x-ray. -- Palliative care is contacted, they have seen the patient. We appreciate the recommendations. He are trying to start pt on fentanyl patch and wean her off of dialudid , DIRECTOR OF PERSONNEL pump in effect till fentanyl takes effect in 12-16 hrs. -- brain scan ordered, CT dept says to wait till early next week due to CTguided biopsy this am -- MRI is done, L parietal bone metas but no brain mets -- Discussed Pelvic fracture with DR. Charley Grande, who says pt is at very high risk of hip fracture due to tumor burden, should not be bearing weight, send to . Discussed this with Dr. Magallanes, who feels her malignancy work up takes precedence, he feels pt should be on bed rest to avoid hip fractures, and to use enoxaparin 30 mg BID ( as she will be immobile and due to malignancy, immobility and atrial myxoma, and obesity her risk is very high for thromboembolism, he does not feel a heparin drip is warranted. Pharmacy called about the dosing and and I directed them to Dr. Magallanes if they have further questions. Atrial Myxoma, POA worsened since 2013 -- Cardiology Dr. Holman has seen the patient, we appreciate her recommendations -- "Atrial myxoma: The patient has a large lesion which puts her at risk for embolic phenomenon. Luckily, the patient has not had embolic phenomenon yet. Under normal circumstances, this lesion would warrant evaluation by CT surgeons to discuss risks, benefits and alternatives of left atrial myxoma resection to prevent embolic phenomenon in the future. However, given abnormal lung mass and possible metastatic disease, this additional heart surgery may not be in the patient's best interest. This certainly does not appear to be a life-threatening emergency. Myxoma was previously noted on a CT PE protocol performed in February 2014, but it has grown slightly from 2 cm in diameter to now 3 cm in diameter." Acute on chronic kidney injury present on admission resolved -- Chronic kidney disease stage III per her prior records -- IV fluid hydration as above, plan to continue through one more day after the CT scan -- We have gone ahead and completed the CT chest/abdomen/pelvic with contrast , results as above -- Decreased fluids to 50 cc/hr, will turn off in the am. Diabetes mellitus type II chronic active -- Hold home medication metformin by mouth -- No scale sliding scale -- Diabetic diet Hypertension chronic presumed stable -- Hold home medications losartan due to poor renal function- -- amlodipine 5 mg by mouth instead -- We will reinstate home medication after one day after CT scan -- Will switch to home meds in the am Hyperlipidemia chronic presumed stable -- We will continue home medication Anxiety chronic presumed stable -- Ativan 0.5 3 times a day when necessary by mouth for palliative care CAD status post bypass chronic stable -- Continue aspirin, Crestor -- "Coronary artery disease: This appears to be a rare phenomenon of congenitally small left main lesion. Right now, betablocker is on hold, but I think, in the mcc, she may benefit from beta priyank for arrhythmia prevention. At this time, we recommend outpatient cardiology consultation and outpatient cardiothoracic surgery followup." Chronic kidney disease stage III acutely worsened -- Management as above High risk medication: Dilaudid pump, fentanyl patch and ativan DVT prophylaxis with enoxaparin 30 mg BID SQ CODE STATUS full code Alternate decision-maker , then the 3 children Patient is admitted under Inpatient status with expected length of stay greater than 2 midnights due to severity of presenting symptoms, risk of adverse event, and complexity of treatment plan. Pain Evaluation: Adequate Pain Control Resuscitation Status: CPR: Attempt Resuscitation ( is alternate decision -maker) Time spent 45 min Tiffanie Gamino DO Jul 17, 2017 07:47
--- NOTE | 2017-07-17 18:53 | CCS NOTE ---
[facility] [address] [place] [id number] MEDICAL ONCOLOGY OFFICE NOTE PATIENT: LEXY ARANGO : 1955 MR#: [id number] DATE: 07/15/2017 JOB ID: [id number] DATE: 07/17/2017 SUBJECTIVE: The patient has been on MONEY LAUNDERING INVESTIGATOR managed by palliative care to control the pain. A number of tests have been performed since yesterday and today, trying to facilitate diagnosis and extent of the disease. She appears more comfortable in regard to pain control, is moderately lethargic and sedated due to narcotic effect. Her is at bedside. I met with her in the morning as well as in the afternoon when her was present. SUMMARY OF DIAGNOSTIC FINDINGS: CT chest, abdomen, and pelvis with contrast of July 16 showed a mass-like consolidation in the left lower lobe, close to the pleural surface, and a corresponding left infrahilar mass which is likely ipsilateral priya metastasis. The finding is highly suspicious for primary lung cancer as I had suspected clinically. Incidentally, a low-density mass found in the left atrium is suspected to be a myxoma and has been present on the previous CT of the chest of 2013, but has somewhat grown in size now 3 cm. Bony destruction and pathologic fracture of right ischium as well as significant metastatic disease burden in the right femoral head and proximal right femoral diaphysis, without fracture yet. Brain MRI of this morning showed no evidence of brain metastases. There was evidence of skeletal skull metastases to the left posterior parietal bone. Her creatinine has continued to improve from 1.87 on admission to now 1.08 with hydration despite of the administration of iodine contrast. Tumor markers show elevation of CA 27-29 to 55 and CA-125 to 267. CEA normal. On exam she is currently on bedrest and has a Garcia catheter placed. No significant changes since last evaluation. Vitals stable. ASSESSMENT AND PLAN: A 61-year-old unfortunate lady with a prior history of smoking presenting with a pathologic fracture of the right ischium with excruciating pain, highly symptomatic and unable to walk. She came for consultation through our clinic on July 15, in severe pain and we had to directly admit her for expedited workup. She did not have any systemic imaging. The above CT scan of chest, abdomen, and pelvis did not show any intra-abdominal mass, no adnexal mass, no liver lesions, but showed a left lower lobe mass with corresponding left infrahilar mass radiographically highly suggestive for primary lung cancer with likely metastases to the bone. Brain MRI negative, except for a parietal bone skull metastasis, but no parenchymal brain metastases. With the extensive multidisciplinary team effort, a CT-guided biopsy in addition to all these tests has been performed today. I have placed a call to pathology to expedite the reading of this specimen. The biopsy was performed from the left lower lobe lung mass. The main concern is the management of the right hip. Several phone conversations have taken place between myself and the hospitalist team and Orthopedics. I have also consulted Radiation and Dr. Rosenbaum will see the patient today. I believe that the management of the right ischium is straightforward and it should be managed with radiation therapy. The bigger problem is the large lesion within the right femur neck and head that shows no fracture but is at very high risk of fracturing. Orthopedic services here do not feel comfortable doing any stabilization surgery for that right femur due to t he high risk of complications and lack of bone support to place any theresa, etc. The idea would be whether it is feasible to do some form of stabilization to that right femur before proceeding with radiation versus radiation alone. We reached the conclusion to have a phone consult with orthopedic surgery at [facility]. Dr. Gamino of the hospitalist team will tomorrow try to communicate with them and send the CT and MRI electronically for their review and suggestion. If the biopsy of the lung mass comes back small-cell carcinoma, then it is important to expose her to chemotherapy as soon as possible. Otherwise the hip management could be addressed first. At this point she is recommended not to bear any weight on the right hip. She remains on prophylactic anticoagulation with Lovenox. TIME: Approximately 1 hour and 10 minutes were spent in counseling and coordination of care.
[2017-07-17] MEDS ORDERED: HYDROmorphone PCA 0.2 mg/mL 30 mL Inj IV PRN (19:00)
--- NOTE | 2017-07-17 20:02 | CONS ---
[address] [address] CONSULTATION REPORT PATIENT: LEXY ARANGO : 1955 MR#: [id number] ADMIT: 07/15/2017 JOB ID: [id number] DATE OF SERVICE: 07/17/2017 Orthopedic inpatient consultation, CPT code 43489. I was asked to see this 61-year-old female in orthopedic consultation for suspected metastatic pelvic fracture and hip pain. I was asked to see the patient in consultation by Dr. Gamino from the medical service. This is a 61-year-old female with history of multiple medical problems including hypertension, diabetes, coronary artery disease and anxiety disorder with hip pain in the right hip for about three months. The patient was having difficulty ambulating due to the right hip pain. The patient did not did not have any particular inciting fall. Her PCP did order an MRI scan that showed concern for metastatic disease with pathologic fracture of the inferior pubic rami and also showed some infiltration in the right femoral head and neck area. PAST MEDICAL HISTORY: Positive for hyperlipidemia, hypertension, type 2 diabetes, coronary artery disease, status post prior coronary artery bypass 2001. Restless legs syndrome and anxiety. PRIOR SURGERY: Patient has had some type of left hip surgery in 2011, supposedly to repair a tendon. Cholecystectomy in 2010, and open heart surgery in 2001. ALLERGIES: 1. PENICILLIN. 2. CLINDAMYCIN. REVIEW OF SYSTEMS: Complete review of systems was performed. HEENT: Patient is not having any blurring of vision or decreased hearing changes. Respiratory: Patient does not have any acute shortness of breath. Clinically, however, it was thought that the patient had metastatic lung cancer. Denies chest pain. GI: Has no acute abdominal pain. Musculoskeletal: Was complaining of right hip and pelvis pain. Additional history includes that the patient is having chronic hip pain and so she was on patient-controlled medication. The CT scan of the chest, abdomen and pelvis showed a left atrial myxoma, as well some lung abnormalities thought to be consistent with malignancy. MEDICATIONS: Include Crestor, Ativan, Flexeril, Zofran, amlodipine, Lispro, Protonix and Voltaren gel. The patient takes metformin, Cozaar, Crestor and aspirin. Cardiology thought that she had also had abnormality with an abnormal lung mass. Oncology has also been consulted. PHYSICAL EXAM: 172 cm, 106 kg female. Temperature 36.8, pulse of 95, respiration 18, blood pressure 133/69, pulse ox 96 or 97. The patient is lying in bed. She has acute right hip and pelvic pain. She has pain with motion of the hip. She does not have any clinical shortening of the right lower extremity. She is able to move the foot and ankle without difficulty. LABORATORY TESTING: Shows a hemoglobin 10.2, hematocrit of 30.5, platelet count 226,000. PT 10.5, INR 0.98. Chemistry: Most recent labs are sodium 134, potassium 4.2, chloride 99, CO2 19. BUN 23, creatinine 1.03. Urine: 1.010 specific gravity, pH of 5, a few bacteria. Plain x-rays of the pelvis show she has an inferior pubic rami fracture. CT of the chest, abdomen and pelvis with contrast showed that she had nodular radio-opacities in the base of the right upper lobe and masslike consolidation of the left lower lobe with moderate narrowing of the bronchi suspicious for primary pulmonary neoplasm with mediastinal priya metastases. She also had a left atrial myxoma that was seen in the past in February 2014. She has bony destruction and pathologic fracture the right ischium. Similar destructive lesions are present within the right femoral head and proximal femoral diaphysis, consistent with bony metastases. Femur x-rays did not show any lesions in the distal femur. She had significant degenerative changes of the knee with medial compartmental narrowing. The reading also shows destructive expansile lytic lesion in the posterior right ischium and inferior obturator ring. Pathologic fracture present. Similar appearing lesion present within the posterior aspect of the right femoral head and anterior aspect of the right femoral diaphysis with consideration for potential for pathologic fracture. PLAN: I discussed the case with Oncology, Dr. Magallanes. He is concerned and he would like to be able to proceed with chemotherapy and/or radiation therapy. I have indicated to him that the ischial fracture does not require surgical intervention. However, the patient has significant destructive lytic lesion in the femoral neck and head that is at high risk potential risk for pathologic fracture. I have indicated to Dr. Magallanes that we would not be prepared to do any surgical intervention on a metastatic tumor lesion of this extent in the femur. Neither I, nor my colleagues would be doing any type of palliative fracture care to avoid pathologic fracture. I explained to him that the bone could be significantly lytic and might not hold our standard hardware and might need some adjunctive treatment such as bone grafting and/or even potential bone cement. I had suggested that he send the films down to [facility] for evaluation and see what their orthopedic surgeons there half to say about the MRI and CAT scan and whether or not they would recommend prophylactic rodding with augmentation to stabilize the bone with either cement or bone grafting. In the interim, I would suggest that the patient not ambulate since this is a high risk for pathologic fracture. We will have the films sent down to [facility] to discuss those with Oncology there, as well as Orthopedics. We will sign off for now and if any further questions are required, please do not hesitate to contact us. CC: [facility] Orthopedics
[2017-07-18] VITALS (9 sets, daily range): BP systolic 112–133; BP diastolic 68–80; PULSE 90–101; RESP 16–20; O2SAT 88–98
[2017-07-18] MEDS: LORazepam 0.5 mg Tablet PO PRN ×3 (01:57→20:55)
[2017-07-18] MEDS: Pantoprazole 40 mg ER24 Tablet PO SCH (06:33)
[2017-07-18] MEDS: 0.9% Sodium Chloride 1,000 ML IV SCH (07:51)
[2017-07-18] MEDS: Insulin LISPRO 300 Unit/3 mL Inj SUBQ SCH ×4 (08:00→21:00)
--- NOTE | 2017-07-18 10:25 | PCM.PNORTH ---
Subjective Date of Service: Jul 18, 2017 Visit Information: Reason for Visit Right Hip Pain Surgery/Surgery Date Post-Op Day # Date of Admission: Jul 15, 2017 at 14:44 Hospital Day # Subjective Found the patient supine in bed with head of bed raised 45 and sleeping. She is easily awakened. Advised patient that I was from orthopedics and was rounding this morning. Performed brief physical exam for neurovascular check. Patient requests to sit up edge of bed and began ambulation and I have advised her at this point that she should remain nonambulatory and nonweightbearing until her condition and treatment is fully determined. Postop General: No Shortness of Breath, No Chest Pain Objective Exam Objective Alert and oriented 3 and pleasant Well-positioned in bed. Thigh and calf are soft and nontender We will and sensation are intact at right lower extremity distally Pain on efforts at movement at the right hip. Vital Signs and I/O Vital Sign - Last Date Time Temp Pulse Resp B/P Pulse Ox O2 Delivery O2 Flow Rate FiO2 07/18/17 08:51 36.8 101 18 133/80 88 Nasal Cannula 3.00 Intake and Output 07/17/17 07/17/17 07/18/17 Cumulative From/Thru 15:00 23:00 07:00 07/15/17 15:57 - 07/18/17 06:32 Intake Total 800 ml 2481 ml 8445 ml Output Total 850 ml 700 ml 4100 ml Balance -50 ml 1781 ml 4345 ml Intake Oral 800 ml 1300 ml 4260 ml IV Total 1181 ml 4185 ml Output Urine Total 850 ml 700 ml 4100 ml # Voids 1 # Bowel Movements 0 0 Lab & Micro Results Laboratory Tests Test 07/18/17 07:08 Sodium Level 136mEq/L (134-144) Potassium Level 5.0mEq/L (3.5-5.2) Chloride Level 103mEq/L (97-108) Carbon Dioxide Level 15mmol/L (18-29) Blood Urea Nitrogen 19mg/dL (8-27) Creatinine 0.93mg/dL (0.57-1.00) Estimat Glomerular Filtration Rate 88mL/min (>59) Glucose Level 123mg/dL (60-99) Calcium Level 9.6mg/dL (8.5-10.1) Result Diagram: 07/16/17202807/18/17 9662 General Appearance: Alert, Oriented X3, Cooperative Extremities: No Compartment Syndrom Noted, Thigh & Calf Soft/Nontender Postop Sensory Motor: Movement in Toes, Distal Sensation Intact Assessment & Plan Plan Post admission day 3 from right hip pain with consult by Beto Grande on 2016. Continue non-weightbearing with no ambulation at the right lower extremity. Pain control and DVT prophylaxis per hospitalist service. Dr. Beto Grande from orthopedics at [facility] has consulted on this patient and is recommending tertiary care at [facility] with consultation by orthopedics and oncology regarding right proximal femur likely metastatic lesions as well as right-sided pubic rami fractures. Patient's pelvic fracture is nonoperative at this time. Continue nonweightbearing with no ambulation until patient's condition is fully explored. Any weightbearing or significant stress placed at the right hip could cause a pathologic fracture at the proximal femur. I have spoken with red team hospitalist Dr. Tiffanie Gamino this morning regarding Dr. Cole recommendations for tertiary care and workup. Dr. Gamino has indicated that [facility] would likely want to speak with Dr. Grande prior to any acceptance of transfer and I believe Dr. Grande would be willing to discuss this with [facility] as needed. Anticipate discharge and transfer of care to [facility] if this can be arranged. Resuscitation Status: CPR: Attempt Resuscitation ( is alternate decision -maker) Shayan Veloz PA-C Jul 18, 2017 10:25
--- NOTE | 2017-07-18 17:21 | PCM.PNMED ---
Subjective Date of Service Jul 18, 2017 Subjective Patient is seen and examined. She appears to be getting a little bit frustrated with her inability to move from the bed. States that she can only go to have a bone moment on her toilet. She has not gone since she came to the hospital but she does not feel comfortable going on the bed. Patient appears to be well controlled, though oxygen desaturation continues to be an issue. Exam Vital Signs Vital Sign - Last Date Time Temp Pulse Resp B/P Pulse Ox O2 Delivery O2 Flow Rate FiO2 07/18/17 15:05 16 94 07/18/17 12:23 36.6 90 131/74 Nasal Cannula 3.00 Intake and Output 07/17/17 07/17/17 07/18/17 Cumulative From/Thru 15:00 23:00 07:00 07/15/17 15:57 - 07/18/17 06:32 Intake Total 800 ml 2481 ml 8445 ml Output Total 850 ml 700 ml 4100 ml Balance -50 ml 1781 ml 4345 ml Intake Oral 800 ml 1300 ml 4260 ml IV Total 1181 ml 4185 ml Output Urine Total 850 ml 700 ml 4100 ml # Voids 1 # Bowel Movements 0 0 Exam General: Appears alert and oriented HEENT: NCAT Neck: No JVD, trachea is central HEart: RRR, no s3/s4 sounds Abd: Soft, non tender, non distended Ext: No edema Psych: Pt is mildly agitated Neuro: No focal deficits IVs and Medications IV Fluids Discontinued Medications Reviewed: Medications were reviewed in detail Lab and Diagnostics Result Diagram: 07/16/17202807/18/17 0708 X-Rays, CTs and MRIs PROCEDURE: CT CHEST, ABDOMEN AND PELVIS [facility] CONTRAST ([id number]) INDICATIONS: malignancy, need to find primary TECHNIQUE: After the administration of oral and intravenous contrast, 5 mm thick sections acquired from the lung apices to the symphysis. 5 mm coronal and sagittal reformats were performed, with additional 7 mm coronal MIP reformats through the lungs. For radiation dose reduction, the following was used: automated exposure control, adjustment of mA and/or kV according to patient size. IMPRESSION: 1. Subcentimeter nodular radiopacities at the base of the right upper lobe. Differential considerations include infection and neoplasm. 2. 2 foci of masslike consolidation in the left lower lobe and left hilar lobe mass with moderate narrowing of the bronchi. These findings are highly suspicious for primary pulmonary neoplasm with mediastinal priya metastasis. If clinically indicated, the larger pulmonary lesion may be amenable to percutaneous CT-guided biopsy. Alternatively, bronchoscopic biopsy may be possible for the hilar mass. 3. Low density mass within the left atrium which is increased when compared with the study dated 03/08/14. This finding suggests atrial myxoma. Cardiology consult recommended. 4. Bony destruction and pathologic fracture of the right ischium. Similar destructive lesions are present within the right femoral head and proximal right diaphysis. These findings are most consistent with bony metastasis. These findings were discussed with Dr. Gamino at 3:42 PM on 07/16/17. Dictated by: Alison Cruz M.D. on 07/16/2017 at 15:19 Approved by: Alison Cruz M.D. on 07/16/2017 at 15:48 -------- PROCEDURE: X-RAY RIGHT FEMUR, TWO VIEWS ([id number]) INDICATIONS: to check for down stream fracture COMPARISON: None. FINDINGS: Bones: No fractures or dislocations. No suspicious bony lesions. Soft tissues: No suspicious soft tissue calcifications or masses. IMPRESSION: No fracture of the femur is found there is moderately severe to severe medial compartment degenerative knee joint osteoarthritis at the right knee with near [id number] articulation. Dictated by: Redd Burdick M.D. on 07/16/2017 at 19:12 Approved by: Redd Burdick M.D. on 07/16/2017 at 19:13 --- ROCEDURE: MRI BRAIN WITH AND WITHOUT CONTRAST ([id number]) INDICATIONS: Mets IMPRESSION: 1. 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 2. No metastatic brain disease seen. 3. Degree of cerebral atrophy appears normal for age. There are scattered bright flair signal changes that did not enhance, post consistent with small vessel ischemic change, possibility of demyelinating disease not excluded. Dictated by: Gallo Sanchez M.D. on 07/17/2017 at 11:26 Approved by: Gallo Sanchez M.D. on 07/17/2017 at 11:40 PROCEDURE: CT-GUIDED BIOPSY OF THE LUNG OR MEDIASTINUM ([id number]) Sedation analgesia for 30 minutes. INDICATIONS: lung mass biopsy IMPRESSION: Successful CT-guided biopsy of a left lung mass. Dictated by: Alison Cruz M.D. on 07/17/2017 at 11:27 Approved by: Alison Cruz M.D. on 07/17/2017 at 11:28 Assessment & Plan This is a 61-year-old female presenting today after having been seen at the cancer center for an MRA results that showed metastasis in the hip pelvic region. She was in such severe pain that she was sent to the hospital for adequate pain control while she is being worked up for a primary and treatment. Severe metastasis most likely due to lung primary, present on admission ongoing -- Palliative care is consulted for pain control, they placed patient on fentanyl patch with the plan to discontinue Dilaudid pump. Dilaudid pump settings were lowered last night due to concern for increased oxygen requirement , this p.m. pump. is discontinued. -- Continue fentanyl 100 tory every 72 hours -- Consult oncology: WE appreciate 's recommendations -- CT chest abdominopelvic with by mouth and IV contrast ordered, discussed case with : Dr Cruz called with the results, most likely lung primary , atrial myxoma increased in size since 2013, pathological ischial fracture -- CT guided bx was done 8 AM. His is expected early next week -- Femur x-ray ordered and showed no concern for R Femur fx. I personally reviewed this x-ray. -- brain scan ordered, CT dept says to wait till early next week due to CTguided biopsy this am -- MRI is done, L parietal bone metas but no brain mets -- Discussed Pelvic fracture with DR. Charley Grande, who says pt is at very high risk of hip fracture due to tumor burden, should not be bearing weight, send to . Discussed this with Dr. Magallanes, who feels her malignancy work up takes precedence, he feels pt should be on bed rest to avoid hip fractures, and to use enoxaparin 30 mg BID ( as she will be immobile and due to malignancy, immobility and atrial myxoma, and obesity her risk is very high for thromboembolism, he does not feel a heparin drip is warranted. Pharmacy called about the dosing and and I directed them to Dr. Magallanes if they have further questions. Right hip pain secondary to severe metastasis unknown primary, present on admission ongoing -- Patient was given 0.5 IV Dilaudid at the time of arrival which brought her pain down to 6 out of 10 -- Femur x-ray ordered and showed no concern for R Femur fx. I personally reviewed this x-ray. -- Palliative care is contacted, they have seen the patient. We appreciate the recommendations. He are trying to start pt on fentanyl patch and wean her off of dialudid , RESEARCH PROGRAM ASSISTANT pump in effect till fentanyl takes effect in 12-16 hrs. -- Discussed Pelvic fracture with DR. Charley Grande, who says pt is at very high risk of hip fracture due to tumor burden, should not be bearing weight, send to . Discussed this with Dr. Magallanes, who feels her malignancy work up takes precedence, he feels pt should be on bed rest to avoid hip fractures. -- -- Contacted [facility], who gave me the number for med consult. I pushed images prior to Calling Dr. Liu, orthopedic surgeon electronic train control technician who states that he was unable to view the images. He feels that on/product management specialist Dr. Gerardo Ellis will be able to direct patient's care better. I discussed this with Dr. Magallanes (he wanted to get more information from orthopedics on whether to place a stabilizing theresa vs cement to prevent L hip femur fx. prior to Radiation to treat the known fracture to prevent the femur from breaking versus radiating the ischial fracture to treat the pathological fracture and pain w/o such measures). We will call again tomorrow, to see if onc-ortho is available electronic train control technician at . Atrial Myxoma, POA worsened since 2013 -- Cardiology Dr. Holman has seen the patient, we appreciate her recommendations -- "Atrial myxoma: The patient has a large lesion which puts her at risk for embolic phenomenon. Luckily, the patient has not had embolic phenomenon yet. Under normal circumstances, this lesion would warrant evaluation by CT surgeons to discuss risks, benefits and alternatives of left atrial myxoma resection to prevent embolic phenomenon in the future. However, given abnormal lung mass and possible metastatic disease, this additional heart surgery may not be in the patient's best interest. This certainly does not appear to be a life-threatening emergency. Myxoma was previously noted on a CT PE protocol performed in February 2014, but it has grown slightly from 2 cm in diameter to now 3 cm in diameter." Acute on chronic kidney injury present on admission resolved -- Chronic kidney disease stage III per her prior records -- IV fluid hydration as above, plan to continue through one more day after the CT scan -- We have gone ahead and completed the CT chest/abdomen/pelvic with contrast , results as above -- IV fluids were discontinued on 07/18/17 Diabetes mellitus type II chronic active -- Hold home medication metformin by mouth -- No scale sliding scale -- Diabetic diet Hypertension chronic presumed stable -- Restarted home medications losartan 07/18/17 Hyperlipidemia chronic presumed stable -- We will continue home medication Anxiety chronic presumed stable -- Ativan 0.5 3 times a day when necessary by mouth for palliative care CAD status post bypass chronic stable -- Continue aspirin, Crestor -- "Coronary artery disease: This appears to be a rare phenomenon of congenitally small left main lesion. Right now, betablocker is on hold, but I think, in the half-way, she may benefit from beta priyank for arrhythmia prevention. At this time, we recommend outpatient cardiology consultation and outpatient cardiothoracic surgery followup." Chronic kidney disease stage III acutely worsened -- Management as above High risk medication: Fentanyl patch, by mouth Ativan DVT prophylaxis with enoxaparin 40 mg daily subcutaneous CODE STATUS full code Alternate decision-maker , then the 3 children Patient is admitted under Inpatient status with expected length of stay greater than 2 midnights due to severity of presenting symptoms, risk of adverse event, and complexity of treatment plan. Pain Evaluation: Adequate Pain Control Resuscitation Status: CPR: Attempt Resuscitation ( is alternate decision -maker) Time spent 25 minutes Tiffanie Gamino DO Jul 18, 2017 17:21
[2017-07-18] MEDS: Codeine-APAP 30-300 mg Tablet PO PRN ×2 (18:56→22:32)
[2017-07-19] MEDS: LORazepam 0.5 mg Tablet PO PRN ×5 (00:36→20:09)
[2017-07-19] MEDS: Codeine-APAP 30-300 mg Tablet PO PRN ×4 (05:16→19:42)
[2017-07-19] MEDS: Pantoprazole 40 mg ER24 Tablet PO SCH (05:16)
[2017-07-19 06:48] VITALS: BP 119/71; PULSE 97; RESP 20; O2SAT 99
[2017-07-19] MEDS: Insulin LISPRO 300 Unit/3 mL Inj SUBQ SCH ×4 (08:00→22:00)
[2017-07-19 08:21] VITALS: BP 93/58; PULSE 90; RESP 12; O2SAT 94
--- NOTE | 2017-07-19 08:35 | PCM.PNORTH ---
Subjective Date of Service: Jul 19, 2017 Visit Information: Reason for Visit Right Hip Pain Surgery/Surgery Date Post-Op Day # Date of Admission: Jul 15, 2017 at 14:44 Hospital Day # Subjective Found patient just waking up this morning with nurse at bedside. Nurse indicates patient had attempted to get out of bed last night and was somewhat disoriented. She has been placed on fentanyl patch with palliative care for pain control and remains displeased that she cannot arise from bed and go to the bathroom for bowel movement. Patient asks me this morning what small with her right hip. I have explained to her that there is a metastatic lesion at her right proximal femur and there is significant concern for fracture at her right proximal femur secondary to lesion and that weightbearing could be catastrophic with a fall if she was weightbearing. I have asked patient to continue to follow requests of no weightbearing. Postop General: No Shortness of Breath, No Chest Pain Objective Exam Objective Awake and groggy. Well-positioned in bed. Thigh and calf are soft and nontender Toe wiggle and sensation are intact at right lower extremity distally Pain on efforts at movement at the right hip Vital Signs and I/O Vital Sign - Last Date Time Temp Pulse Resp B/P Pulse Ox O2 Delivery O2 Flow Rate FiO2 07/19/17 06:48 36.9 97 20 119/71 99 Nasal Cannula 3.00 Intake and Output 07/18/17 07/18/17 07/19/17 Cumulative From/Thru 15:00 23:00 07:00 07/15/17 15:57 - 07/19/17 06:48 Intake Total 836 ml 850 ml 74016 ml Output Total 300 ml 2600 ml 7000 ml Balance 536 ml -1750 ml 3131 ml Intake Oral 836 ml 850 ml 5946 ml IV Total 4185 ml Output Urine Total 300 ml 2600 ml 7000 ml # Voids 1 # Bowel Movements 0 0 0 Lab & Micro Results Laboratory Tests Test 07/19/17 05:22 Sodium Level 139mEq/L (134-144) Potassium Level 3.8mEq/L (3.5-5.2) Chloride Level 102mEq/L (97-108) Carbon Dioxide Level 22mmol/L (18-29) Blood Urea Nitrogen 17mg/dL (8-27) Creatinine 1.05mg/dL (0.57-1.00) Estimat Glomerular Filtration Rate 77mL/min (>59) Glucose Level 88mg/dL (60-99) Calcium Level 9.4mg/dL (8.5-10.1) Result Diagram: 07/16/17202807/19/17 0522 Assessment & Plan Plan Post admission day 4 from right hip pain with consult by Beto Grande on 2016. Continue non-weightbearing at the right lower extremity with no ambulation. Pain control and DVT prophylaxis per hospitalist service. Dr. Beto Grande from orthopedics at [facility] has consulted on this patient and is recommending tertiary care at [facility] with consultation by orthopedics and oncology regarding right proximal femur likely metastatic lesions as well as right-sided pubic rami fractures. Patient's pelvic fracture is nonoperative at this time. Right proximal femur may require rodding with cement supplementation or other technique as determined by tertiary care orthopedic provider. Continue nonweightbearing with no ambulation until patient's condition is fully explored. Any weightbearing or significant stress placed at the right hip could cause a pathologic fracture at the proximal femur. Dr. Gamino has indicated that [facility] would likely want to speak with Dr. Grande prior to any acceptance of transfer and I believe Dr. Grande would be willing to discuss this with [facility] as needed. Oncology at [facility] is on patient's case at this time. Orthopedics has no treatment to offer as of this time. Anticipate discharge and transfer of care to [facility] if this can be arranged when determined to be appropriate by [facility] internal medicine and oncology. Will consider sign off 07-20-17. Resuscitation Status: CPR: Attempt Resuscitation ( is alternate decision -maker) Shayan Veloz PA-C Jul 19, 2017 08:35
[2017-07-19 11:56] VITALS: BP 116/75; PULSE 94; RESP 15; O2SAT 96
[2017-07-19] MEDS: HYDROmorphone 1 mg/mL Inj IVPUSH PRN ×3 (18:21→22:25)
[2017-07-19 19:50] VITALS: PULSE 95; RESP 20; O2SAT 98
--- NOTE | 2017-07-19 19:52 | PCM.PNMED ---
Subjective Date of Service Jul 19, 2017 Subjective Patient is seen and examined. She is asking for more breakthrough pain medication, as well as increasing her Tylenol codiene. She is still requesting to sit on the toilet to have a bowel movement moment, the staff are saying that unable to lift her due to her body habitus. We counseled her on the importance of her currently not moving her pelvic area. She verbalized her understanding. Patient also stated that she is not happy with the Garcia, as she feels like she still has to urinate Exam Vital Signs Vital Sign - Last Date Time Temp Pulse Resp B/P Pulse Ox O2 Delivery O2 Flow Rate FiO2 07/19/17 08:21 36.4 90 12 93/58 94 Room Air 07/19/17 06:48 3.00 Intake and Output 07/18/17 07/18/17 07/19/17 Cumulative From/Thru 15:00 23:00 07:00 07/15/17 15:57 - 07/19/17 06:48 Intake Total 836 ml 850 ml 24761 ml Output Total 300 ml 2600 ml 7000 ml Balance 536 ml -1750 ml 3131 ml Intake Oral 836 ml 850 ml 5946 ml IV Total 4185 ml Output Urine Total 300 ml 2600 ml 7000 ml # Voids 1 # Bowel Movements 0 0 0 Exam General: Appears alert and oriented HEENT: NCAT Neck: No JVD, trachea is central HEart: RRR, no s3/s4 sounds Abd: Soft, non tender, non distended Ext: No edema Psych: Pt is mildly agitated Neuro: No focal deficits IVs and Medications Medications Reviewed: Medications were reviewed in detail Lab and Diagnostics Result Diagram: 07/16/17202807/19/17521 X-Rays, CTs and MRIs PROCEDURE: CT CHEST, ABDOMEN AND PELVIS [facility] CONTRAST ([id number]) INDICATIONS: malignancy, need to find primary TECHNIQUE: After the administration of oral and intravenous contrast, 5 mm thick sections acquired from the lung apices to the symphysis. 5 mm coronal and sagittal reformats were performed, with additional 7 mm coronal MIP reformats through the lungs. For radiation dose reduction, the following was used: automated exposure control, adjustment of mA and/or kV according to patient size. IMPRESSION: 1. Subcentimeter nodular radiopacities at the base of the right upper lobe. Differential considerations include infection and neoplasm. 2. 2 foci of masslike consolidation in the left lower lobe and left hilar lobe mass with moderate narrowing of the bronchi. These findings are highly suspicious for primary pulmonary neoplasm with mediastinal priya metastasis. If clinically indicated, the larger pulmonary lesion may be amenable to percutaneous CT-guided biopsy. Alternatively, bronchoscopic biopsy may be possible for the hilar mass. 3. Low density mass within the left atrium which is increased when compared with the study dated 03/08/14. This finding suggests atrial myxoma. Cardiology consult recommended. 4. Bony destruction and pathologic fracture of the right ischium. Similar destructive lesions are present within the right femoral head and proximal right diaphysis. These findings are most consistent with bony metastasis. These findings were discussed with Dr. Gamino at 3:42 PM on 07/16/17. Dictated by: Alison Cruz M.D. on 07/16/2017 at 15:19 Approved by: Alison Cruz M.D. on 07/16/2017 at 15:48 -------- PROCEDURE: X-RAY RIGHT FEMUR, TWO VIEWS ([id number]) INDICATIONS: to check for down stream fracture COMPARISON: None. FINDINGS: Bones: No fractures or dislocations. No suspicious bony lesions. Soft tissues: No suspicious soft tissue calcifications or masses. IMPRESSION: No fracture of the femur is found there is moderately severe to severe medial compartment degenerative knee joint osteoarthritis at the right knee with near [id number] articulation. Dictated by: Redd Burdick M.D. on 07/16/2017 at 19:12 Approved by: Redd Burdick M.D. on 07/16/2017 at 19:13 --- ROCEDURE: MRI BRAIN WITH AND WITHOUT CONTRAST ([id number]) INDICATIONS: Mets IMPRESSION: 1. 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 2. No metastatic brain disease seen. 3. Degree of cerebral atrophy appears normal for age. There are scattered bright flair signal changes that did not enhance, post consistent with small vessel ischemic change, possibility of demyelinating disease not excluded. Dictated by: Gallo Sanchez M.D. on 07/17/2017 at 11:26 Approved by: Gallo Sanchez M.D. on 07/17/2017 at 11:40 PROCEDURE: CT-GUIDED BIOPSY OF THE LUNG OR MEDIASTINUM ([id number]) Sedation analgesia for 30 minutes. INDICATIONS: lung mass biopsy IMPRESSION: Successful CT-guided biopsy of a left lung mass. Dictated by: Alison Cruz M.D. on 07/17/2017 at 11:27 Approved by: Alison Cruz M.D. on 07/17/2017 at 11:28 Assessment & Plan This is a 61-year-old female presenting today after having been seen at the cancer center for an MRA results that showed metastasis in the hip pelvic region. She was in such severe pain that she was sent to the hospital for adequate pain control while she is being worked up for a primary and treatment. 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 Results are expected early next week -- Femur x-ray ordered and showed no concern for R Femur fx. I personally reviewed this x-ray. -- brain scan ordered, CT dept says to wait till early next week due to CTguided biopsy this am, biopsy results are still pending -- MRI is done, L parietal bone metas but no brain mets -- Discussed Pelvic fracture with DR. Beto Grande, who says pt is at very high risk of hip fracture due to tumor burden, should not be bearing weight, send to . Discussed this with Dr. Magallanes, who feels her malignancy work up takes precedence, he feels pt should be on bed rest to avoid hip fractures -- Contacted [facility] med consult Again today, who confirmed that Dr. Liu's orthopedic surgeon python architect and Dr. Gerardo Ellis ortho/onc will be available at his clinic number in the a.m. number is Right hip pain secondary to severe metastasis unknown primary, present on admission ongoing -- Patient was given 0.5 IV Dilaudid at the time of arrival which brought her pain down to 6 out of 10 -- Femur x-ray ordered and showed no concern for R Femur fx. I personally reviewed this x-ray. -- Palliative care is contacted, they have seen the patient. We appreciate the recommendations. He are trying to start pt on fentanyl patch and wean her off of dialudid , RELIGION INSTRUCTOR pump in effect till fentanyl takes effect in 12-16 hrs. -- Discussed Pelvic fracture with DR. Charley Grande, who says pt is at very high risk of hip fracture due to tumor burden, should not be bearing weight, send to . Discussed this with Dr. Magallanes, who feels her malignancy work up takes precedence, he feels pt should be on bed rest to avoid hip fractures. -- -- Contacted [facility] transfer Center, who gave me the number for med consult. I pushed images prior to Calling Dr. Liu, orthopedic surgeon python architect who states that he was unable to view the images. He feels that on/payroll tax specialist Dr. Gerardo Ellis will be able to direct patient's care better. I discussed this with Dr. Magallanes (he wanted to get more information from orthopedics on whether to place a stabilizing theresa vs cement to prevent L hip femur fx. prior to Radiation to treat the known fracture to prevent the femur from breaking versus radiating the ischial fracture to treat the pathological fracture and pain w/o such measures). We will call again tomorrow, to see if onc-ortho is available python architect at . -- Contacted [facility] med consult Again today, who confirmed that Dr. Liu's orthopedic surgeon python architect and Dr. Gerardo Ellis ortho/onc will be available at his clinic number in the a.m. 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 Holman has seen the patient, we appreciate her recommendations -- "Atrial myxoma: The patient has a large lesion which puts her at risk for embolic phenomenon. Luckily, the patient has not had embolic phenomenon yet. Under normal circumstances, this lesion would warrant evaluation by CT surgeons to discuss risks, benefits and alternatives of left atrial myxoma resection to prevent embolic phenomenon in the future. However, given abnormal lung mass and possible metastatic disease, this additional heart surgery may not be in the patient's best interest. This certainly does not appear to be a life-threatening emergency. Myxoma was previously noted on a CT PE protocol performed in February 2014, but it has grown slightly from 2 cm in diameter to now 3 cm in diameter." Acute on chronic kidney injury present on admission resolved -- Chronic kidney disease stage III per her prior records -- IV fluid hydration as above, plan to continue through one more day after the CT scan -- We have gone ahead and completed the CT chest/abdomen/pelvic with contrast , results as above -- IV fluids were discontinued on 07/18/17 Diabetes mellitus type II chronic active -- Hold home medication metformin by mouth -- No scale sliding scale -- Diabetic diet Hypertension chronic presumed stable -- Restarted home medications losartan 07/18/17 -- Blood pressures are on the low side 07/19, consider decreasing the dose of home medication losartan Hyperlipidemia chronic presumed stable -- We will continue home medication Anxiety chronic presumed stable -- Ativan 0.5 3 times a day when necessary by mouth for palliative care CAD status post bypass chronic stable -- Continue aspirin, Crestor -- "Coronary artery disease: This appears to be a rare phenomenon of congenitally small left main lesion. Right now, betablocker is on hold, but I think, in the rn long term care, she may benefit from beta priyank for arrhythmia prevention. At this time, we recommend outpatient cardiology consultation and outpatient cardiothoracic surgery followup." Chronic kidney disease stage III acutely worsened -- Management as above Chronic sleep apnea, presumed -- Patient has been desaturating with sleep and requiring oxygen 1-2 L High risk medication: Fentanyl patch, by mouth Ativan, IV Dilaudid DVT prophylaxis with enoxaparin 40 mg daily subcutaneous CODE STATUS full code Alternate decision-maker , then the 3 children Patient is admitted under Inpatient status with expected length of stay greater than 2 midnights due to severity of presenting symptoms, risk of adverse event, and complexity of treatment plan. Pain Evaluation: Pain not Controlled Resuscitation Status: CPR: Attempt Resuscitation ( is alternate decision -maker) Time spent 25 minutes Tiffanie Gamino DO Jul 19, 2017 08:40
[2017-07-19 20:42] VITALS: BP 120/75; PULSE 95; RESP 21; O2SAT 100
[2017-07-20] VITALS (7 sets, daily range): BP systolic 99–137; BP diastolic 50–84; PULSE 86–94; RESP 16–20; O2SAT 93–98
[2017-07-20] MEDS: LORazepam 0.5 mg Tablet PO PRN ×2 (00:13→04:36)
[2017-07-20] MEDS: Codeine-APAP 30-300 mg Tablet PO PRN ×4 (00:15→19:56)
[2017-07-20] MEDS: HYDROmorphone 1 mg/mL Inj IVPUSH PRN ×3 (02:14→13:51)
[2017-07-20] MEDS: Insulin LISPRO 300 Unit/3 mL Inj SUBQ SCH ×4 (08:00→22:00)
--- NOTE | 2017-07-20 08:31 | PCM.PNORTH ---
Subjective Date of Service: Jul 20, 2017 Visit Information: Reason for Visit Right Hip Pain Surgery/Surgery Date Post-Op Day # Date of Admission: Jul 15, 2017 at 14:44 Hospital Day # 5 Subjective Patient is laying in bed complaining of pain throughout her whole body. Postop General: No Shortness of Breath, No Chest Pain Pain Management: PO, IV Push Objective Exam Objective Laying in bed Vital Signs and I/O Vital Sign - Last Date Time Temp Pulse Resp B/P Pulse Ox O2 Delivery O2 Flow Rate FiO2 07/20/17 08:17 36.8 94 16 99/50 96 Room Air 07/20/17 04:44 1.00 Intake and Output 07/19/17 07/19/17 07/20/17 Cumulative From/Thru 15:00 23:00 07:00 07/15/17 15:57 - 07/20/17 05:55 Intake Total 1556 ml 872 ml 94717 ml Output Total 650 ml 900 ml 8550 ml Balance 906 ml -28 ml 4009 ml Intake Oral 1556 ml 872 ml 8374 ml IV Total 4185 ml Output Urine Total 650 ml 900 ml 8550 ml # Voids 1 # Bowel Movements 0 0 Result Diagram: 07/16/17202807/19/17 0522 General Appearance: Alert, Oriented X3, Cooperative, No Acute Distress Extremities: Distal Pulses Palpable, Warm, No Compartment Syndrom Noted, Thigh & Calf Soft/Nontender Postop Sensory Motor: Distal Motor Intact, Movement in Toes, Distal Sensation Intact, NVI Distally Assessment & Plan Impression Post admission day 5 from right hip pain with consult by Beto Grande on 2016. Problems: Plan Continue non-weightbearing at the right lower extremity with no ambulation. Continue nonweightbearing with no ambulation until patient's condition is fully explored. Any weightbearing or significant stress placed at the right hip could cause a pathologic fracture at the proximal femur. Pain control and DVT prophylaxis per hospitalist service. Dr. Beto Grande from orthopedics at [facility] has consulted on this patient and is recommending tertiary care at [facility] with consultation by orthopedics and oncology regarding right proximal femur likely metastatic lesions as well as right-sided pubic rami fractures. Patient's pelvic fracture is nonoperative at this time. Right proximal femur may require rodding with cement supplementation or other technique as determined by tertiary care orthopedic provider. Orthopedics has no treatment to offer as of this time and will sign off. Anticipate discharge and transfer of care to [facility] if this can be arranged when determined to be appropriate by [facility] and oncology. Resuscitation Status: CPR: Attempt Resuscitation ( is alternate decision -maker) Georgia Powell PA-C Jul 20, 2017 08:31
[2017-07-20] MEDS: Pantoprazole 40 mg ER24 Tablet PO SCH (08:46)
--- NOTE | 2017-07-20 09:15 | PCM.PALLBR ---
Palliative Care Recommendation Summary of palliative recommendations: -Symptom management (Pain/other): 1. Pain: Reviewed IV pushes Dilaudid overnight: used about 2.5mg IV dilaudid (50 OME),. This is in addition to 180 mg of codeine (12 OME) overnight and her 100 g per hour fentanyl patch. This is equal to 60 OME which is equal to 31 mcg/hr of fentanyl transdermal patch.We are adding an additional 25 mcg/hr patch to replace this amount of prn opiates she has needed. I recommend starting a 125mcg/hr fentanyl patch today Continue 0.5 mg Dilaudid push every 2 hours for breakthrough pain 2. Anxiety: pt does not have baseline anxiety diagnosis. She has become anxious due to uncontrolled pain. Continue: Discontinue ativan and begin 2 mg Valium 3 times daily to better address musculoskeletal spasm -DPOA/Advanced Directives/POLST: Currently FULL CODE. Palliative Care Team does not plan to engage pt in any advanced planning topics at this time, as pt has just begun oncology workup this admission. -Family/emotional support: Good -Spiritual support: not explored today. Patient Goals: 1. She is reluctant to use both pain and anxiety meds. She is afraid of being oversedated or loopy. She wants to be alert. Dr. Singleton and her daughter reassured her that the goal is to reduce her pain. Palliative Care will round later to reassess effectiveness of pain/anxiety regimen started above. Additional Medical Diagnoses with primary management by Hospitalist team include : 1. Right hip pain secondary to severe metastasis unknown primary, present on admission ongoing workup. 2. Acute on chronic kidney injury present on admission active-- Chronic kidney disease stage III per her prior records 3. Diabetes mellitus type II chronic active 4. Hypertension chronic presumed stable 5. Hyperlipidemia chronic presumed stable 6. CAD status post bypass chronic stable-- Continue aspirin, Crestor Problems: Resuscitation Status Resuscitation Status: CPR: Attempt Resuscitation ( is alternate decision -maker) Total time 35 minutes; >50% face to face with patient and/or family, providing counselling regarding plans and recommendations, and in care coordination with his/her medical teams. Attending Statement Dr. Singleton physically present and available for interview/exam/discussion of pain managment and calculation of opiates for pain with the resident and she approves the above documentation in the resident's progress note. Palliative Brief Note Date of Service Jul 20, 2017 . Overnight, patient states that she was awakened and a sense of panic, was very uncomfortable, with a spasm in her right buttock. She says that it was not pain that woke her out but more of a feeling of uneasiness. She was having some difficulty describing her symptoms, and recommended that we consult with her daughter whom was present with her overnight. On exam, patient is grimacing, emotional, and appeared to be in a moderate amount of distress. She also had an audible wheeze, despite breathing treatment this morning. She is on anticoagulation therapy. Levon North DO Jul 20, 2017 09:15 Roseanna Singleton MD Jul 20, 2017 09:45 Levon North DO Jul 20, 2017 09:15 Levon North DO Jul 20, 2017 09:15
[2017-07-20] MEDS: FENTANYL TOPICAL SCH ×2 (09:36)
[2017-07-20] MEDS ORDERED: HYDROmorphone 0.5 mg/0.5 mL iSecure Syringe IVPUSH PRN (13:49)
[2017-07-20] MEDS: Albuterol 2.5 mg/3 mL Inhalation Solution NEB PRN (14:27)
--- NOTE | 2017-07-20 19:42 | CCS NOTE ---
[facility] [address] [place] [id number] MEDICAL ONCOLOGY OFFICE NOTE PATIENT: LEXY ARANGO : 1955 MR#: [id number] DATE: 07/15/2017 JOB ID: [id number] DATE: 07/20/2017 HISTORY OF PRESENT ILLNESS: I saw the patient in late afternoon. Family members were not present. She was sleeping but easily arousable and then carried on a conversation without problems. Her pain seems to be adequately controlled and she is on bedrest per orthopedic recommendation because of risk of femur fracture. Again, her brain MRI was negative for brain metastases. LAB STUDIES: Were last done today with the chemistry showing a creatinine of 1.05. Vitals have been stable. Blood pressure 137/84, afebrile. O2 sat 97% on room air. PHYSICAL EXAMINATION: On exam, her abdomen is soft. Extremities show no significant change. ASSESSMENT: The patient is a 61-year-old lady presenting with a complex situation in excruciating pain and unable to walk due to pain in her right posterior lower pelvis with imaging showing a pathologic fracture of the right ischium due to a neoplastic process without any history of cancer. She was directly admitted from our clinic last Thursday afternoon with extensive workup on and Thursday including comprehensive imaging with CT of chest, abdomen, and pelvis and a brain MRI. She was found to have an additional skeletal metastases on the CT as well as a left lower lobe lung mass and left infrahilar mass. Percutaneous biopsy was done from the left lower lobe on Thursday. I have communicated over the phone with [facility], Dr. Márquez, of their Pathology asking for a bailon on workup. She told me that the biopsy is positive for malignant cells, but further characterization is pending with immunohistochemistry and I made suggestions regarding the differential diagnosis. We should hear back by tomorrow noon from Pathology with verbal communication. I also talked with Radiation Therapy. My thinking is that the patient should have a single fraction large dose of radiation to the right ischial fracture, but we will hold off on that until the management of the right femur is specified. Dr. Gamino had requested the CT and MRI of the pelvis to be sent to [facility]. I followed up on that and it appeared that it was sent, but it was sitting in their files without being opened and up-loaded in their system. I have personally contacted Dr. Gerardo Ellis with Orthopedic Surgery, specializing in malignant issues and alerted him about the imaging which was verified that is now available for review. Dr. Ellis will be back in the office tomorrow, review the films and contact us back regarding feasibility of preventive theresa placement in the right femur head for stabilization before radiation therapy is considered. If such a procedure is offered, then we could transfer the patient. Otherwise, we would proceed with radiation therapy and the choice of chemotherapy is pending the histologic diagnosis. These findings were conveyed to the patient as well. TIME SPENT WITH PATIENT: Approximately 1 hour and 10 minutes were spent in counseling and coordination of care.
--- NOTE | 2017-07-20 20:54 | PCM.PNMED ---
Subjective Date of Service Jul 20, 2017 Subjective Patient is seen and examined. Daughter. was present in the room and her questions were answered. Exam Vital Signs Vital Sign - Last Date Time Temp Pulse Resp B/P Pulse Ox O2 Delivery O2 Flow Rate FiO2 07/20/17 14:27 89 18 97 Room Air 07/20/17 12:37 36.7 137/84 07/20/17 07:50 1.00 Intake and Output 07/19/17 07/19/17 07/20/17 Cumulative From/Thru 15:00 23:00 07:00 07/15/17 15:57 - 07/20/17 05:55 Intake Total 1556 ml 872 ml 23145 ml Output Total 650 ml 900 ml 8550 ml Balance 906 ml -28 ml 4009 ml Intake Oral 1556 ml 872 ml 8374 ml IV Total 4185 ml Output Urine Total 650 ml 900 ml 8550 ml # Voids 1 # Bowel Movements 0 0 Exam General: Appears alert and oriented HEENT: NCAT Neck: No JVD, trachea is central HEart: RRR, no s3/s4 sounds Abd: Soft, non tender, non distended Ext: No edema Psych: Pt is mildly agitated Neuro: No focal deficits IVs and Medications Medications Reviewed: Medications were reviewed in detail Lab and Diagnostics Result Diagram: 07/16/17202807/[id number]/17521 X-Rays, CTs and MRIs PROCEDURE: CT CHEST, ABDOMEN AND PELVIS WTIH CONTRAST ([id number]) INDICATIONS: malignancy, need to find primary TECHNIQUE: After the administration of oral and intravenous contrast, 5 mm thick sections acquired from the lung apices to the symphysis. 5 mm coronal and sagittal reformats were performed, with additional 7 mm coronal MIP reformats through the lungs. For radiation dose reduction, the following was used: automated exposure control, adjustment of mA and/or kV according to patient size. IMPRESSION: 1. Subcentimeter nodular radiopacities at the base of the right upper lobe. Differential considerations include infection and neoplasm. 2. 2 foci of masslike consolidation in the left lower lobe and left hilar lobe mass with moderate narrowing of the bronchi. These findings are highly suspicious for primary pulmonary neoplasm with mediastinal priya metastasis. If clinically indicated, the larger pulmonary lesion may be amenable to percutaneous CT-guided biopsy. Alternatively, bronchoscopic biopsy may be possible for the hilar mass. 3. Low density mass within the left atrium which is increased when compared with the study dated 03/08/14. This finding suggests atrial myxoma. Cardiology consult recommended. 4. Bony destruction and pathologic fracture of the right ischium. Similar destructive lesions are present within the right femoral head and proximal right diaphysis. These findings are most consistent with bony metastasis. These findings were discussed with Dr. Gamino at 3:42 PM on 07/16/17. Dictated by: Alison Cruz M.D. on 07/16/2017 at 15:19 Approved by: Alison Cruz M.D. on 07/16/2017 at 15:48 -------- PROCEDURE: X-RAY RIGHT FEMUR, TWO VIEWS ([id number]) INDICATIONS: to check for down stream fracture COMPARISON: None. FINDINGS: Bones: No fractures or dislocations. No suspicious bony lesions. Soft tissues: No suspicious soft tissue calcifications or masses. IMPRESSION: No fracture of the femur is found there is moderately severe to severe medial compartment degenerative knee joint osteoarthritis at the right knee with near [id number] articulation. Dictated by: Redd Burdick M.D. on 07/16/2017 at 19:12 Approved by: Redd Burdick M.D. on 07/16/2017 at 19:13 --- ROCEDURE: MRI BRAIN WITH AND WITHOUT CONTRAST ([id number]) INDICATIONS: Mets IMPRESSION: 1. 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 2. No metastatic brain disease seen. 3. Degree of cerebral atrophy appears normal for age. There are scattered bright flair signal changes that did not enhance, post consistent with small vessel ischemic change, possibility of demyelinating disease not excluded. Dictated by: Gallo Sanchez M.D. on 07/17/2017 at 11:26 Approved by: Gallo Sanchez M.D. on 07/17/2017 at 11:40 PROCEDURE: CT-GUIDED BIOPSY OF THE LUNG OR MEDIASTINUM ([id number]) Sedation analgesia for 30 minutes. INDICATIONS: lung mass biopsy IMPRESSION: Successful CT-guided biopsy of a left lung mass. Dictated by: Alison Cruz M.D. on 07/17/2017 at 11:27 Approved by: Alison Cruz M.D. on 07/17/2017 at 11:28 Assessment & Plan This is a 61-year-old female presenting today after having been seen at the cancer center for an MRA results that showed metastasis in the hip pelvic region. She was in such severe pain that she was sent to the hospital for adequate pain control while she is being worked up for a primary and treatment. 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 Results are expected early next week -- Femur x-ray ordered and showed no concern for R Femur fx. I personally reviewed this x-ray. -- brain scan ordered, CT dept says to wait till early next week due to CTguided biopsy this am, biopsy results are still pending -- MRI is done, L parietal bone metas but no brain mets -- Discussed Pelvic fracture with DR. Beto Grande, who says pt is at very high risk of hip fracture due to tumor burden, should not be bearing weight, send to . Discussed this with Dr. Magallanes, who feels her malignancy work up takes precedence, he feels pt should be on bed rest to avoid hip fractures -- Contacted [facility] med consult /Dr. Gerardo Ellis (ortho/onc ) on 07/20, who promises to get back to me after reviewing the images, check back again at 5 PM, he has not had a chance to review them yet. He will follow- up in the a.m. -- Bone scan tomorrow a.m. Right hip pain secondary to severe metastasis unknown primary, present on admission ongoing -- Patient was given 0.5 IV Dilaudid at the time of arrival which brought her pain down to 6 out of 10 -- Femur x-ray ordered and showed no concern for R Femur fx. I personally reviewed this x-ray. -- Palliative care is contacted, they have seen the patient. We appreciate the recommendations. Currently patient is on fentanyl patch with breakthrough Dilaudid -- Discussed Pelvic fracture with DR. Charley Grande, who says pt is at very high risk of hip fracture due to tumor burden, should not be bearing weight, send to . Discussed this with Dr. Magallanes, who feels her malignancy work up takes precedence, he feels pt should be on bed rest to avoid hip fractures. -- -- 07/[address] [facility] transfer [facility], who gave me the number for med consult. I pushed images prior to Calling Dr. Liu, orthopedic surgeon [employer] who states that he was unable to view the images. He feels that on/director of orthopedics Dr. Gerardo Ellis will be able to direct patient's care better. I discussed this with Dr. Magallanes (he wanted to get more information from orthopedics on whether to place a stabilizing theresa vs cement to prevent L hip femur fx. prior to Radiation to treat the known fracture to prevent the femur from breaking versus radiating the ischial fracture to treat the pathological fracture and pain w/o such measures). We will call again tomorrow, to see if onc-ortho is available [employer] at . -- We will continue to follow up with Dr. Gerardo Ellis as about Atrial Myxoma, POA worsened since 2013 -- Cardiology Dr. Holman has seen the patient, we appreciate her recommendations -- "Atrial myxoma: The patient has a large lesion which puts her at risk for embolic phenomenon. Luckily, the patient has not had embolic phenomenon yet. Under normal circumstances, this lesion would warrant evaluation by CT surgeons to discuss risks, benefits and alternatives of left atrial myxoma resection to prevent embolic phenomenon in the future. However, given abnormal lung mass and possible metastatic disease, this additional heart surgery may not be in the patient's best interest. This certainly does not appear to be a life-threatening emergency. Myxoma was previously noted on a CT PE protocol performed in February 2014, but it has grown slightly from 2 cm in diameter to now 3 cm in diameter." Acute on chronic kidney injury present on admission resolved -- Chronic kidney disease stage III per her prior records -- IV fluid hydration as above, plan to continue through one more day after the CT scan -- We have gone ahead and completed the CT chest/abdomen/pelvic with contrast , results as above -- IV fluids were discontinued on 07/18/17 Diabetes mellitus type II chronic active -- Hold home medication metformin by mouth -- No scale sliding scale -- Diabetic diet Hypertension chronic presumed stable -- Restarted home medications losartan 07/18/17 -- Blood pressures are on the low side 07/19, consider decreasing the dose of home medication losartan Hyperlipidemia chronic presumed stable -- We will continue home medication Anxiety chronic presumed stable -- Ativan 0.5 3 times a day when necessary by mouth for palliative care CAD status post bypass chronic stable -- Continue aspirin, Crestor -- "Coronary artery disease: This appears to be a rare phenomenon of congenitally small left main lesion. Right now, betablocker is on hold, but I think, in the long term care administrator, she may benefit from beta priyank for arrhythmia prevention. At this time, we recommend outpatient cardiology consultation and outpatient cardiothoracic surgery followup." Chronic kidney disease stage III acutely worsened -- Management as above Chronic sleep apnea, presumed -- Patient has been desaturating with sleep and requiring oxygen 1-2 L High risk medication: Fentanyl patch, by mouth Ativan, IV Dilaudid DVT prophylaxis with enoxaparin 40 mg daily subcutaneous CODE STATUS full code Alternate decision-maker , then the 3 children Patient is admitted under Inpatient status with expected length of stay greater than 2 midnights due to severity of presenting symptoms, risk of adverse event, and complexity of treatment plan. Pain Evaluation: Adequate Pain Control Resuscitation Status: CPR: Attempt Resuscitation ( is alternate decision -maker) Time spent 30 minutes Tiffanie Gamino DO Jul 20, 2017 20:54
[2017-07-20] MEDS ORDERED: LORazepam 0.5 mg Tablet PO PRN (22:35)
[2017-07-21] MEDS: Codeine-APAP 30-300 mg Tablet PO PRN ×2 (00:49→05:03)
[2017-07-21 07:19] VITALS: BP 126/68; PULSE 112; RESP 20; O2SAT 98
[2017-07-21] MEDS: Insulin LISPRO 300 Unit/3 mL Inj SUBQ SCH ×4 (08:00→22:00)
[2017-07-21 08:26] VITALS: BP 134/86; PULSE 98; RESP 16; O2SAT 98
[2017-07-21 08:30] VITALS: PULSE 86; RESP 18; O2SAT 95
[2017-07-21] MEDS: Pantoprazole 40 mg ER24 Tablet PO SCH (08:39)
--- NOTE | 2017-07-21 10:07 | PCM.PALLBR ---
Palliative Care Recommendation 61-year-old female with new diagnosis of metastatic adenocarcinoma of the lung, with severe right hip/pelvic pain secondary to metastases. Palliative medicine consulted to assist with management of symptoms. Summary of palliative recommendations: -Symptom management (Pain/other): 1. Pain: We are increasing IV Dilaudid push to 1-2 mg q2 hr prn We are also adding PO Dilaudid 4-6 mg prn We will continuing her fentanyl patch at a dose of 125 mcg/hr Discontinuing Tylenol with codeine . 2. Anxiety: pt does not have baseline anxiety diagnosis. She has become anxious due to uncontrolled pain. Increase Valium to 5 mg 3 times daily for anxiety and muscle spasm. -DPOA/Advanced Directives/POLST: Currently FULL CODE. Palliative Care Team does not plan to engage pt in any advanced planning topics at this time, as pt has just begun oncology workup this admission. -Family/emotional support: Good -Spiritual support: not explored today. Patient Goals: 1. She is reluctant to use both pain and anxiety meds. She is afraid of being oversedated or loopy. Palliative Care will round later to reassess effectiveness of pain/anxiety regimen started above. Addendum: Checked back with patient at 1330 today. She says her pain is well- controlled, rated 5/10. She has not required any IV Dilaudid. She denies nausea and is tolerating well. PT will be having a bone scan today, and I recommended asking nurse for pain meds prior to moving for the procedure. Per patient, she will be transferred to Sunday 07/22 for pin stabilization of her femur prior to beginning radiation therapy. Daughter Debi was in the room , and she felt she was in the loop as far as the plan goes. Additional Medical Diagnoses with primary management by Hospitalist team include : 1. Right hip pain secondary to severe metastasis unknown primary, present on admission ongoing workup. 2. Acute on chronic kidney injury present on admission active-- Chronic kidney disease stage III per her prior records 3. Diabetes mellitus type II chronic active 4. Hypertension chronic presumed stable 5. Hyperlipidemia chronic presumed stable 6. CAD status post bypass chronic stable-- Continue aspirin, Crestor Problems: Resuscitation Status Resuscitation Status: CPR: Attempt Resuscitation ( is alternate decision -maker) POLST Updates/Changes Previous POLST?: No . Pain: Moderate Symptom management: Anxiety, Pain Total time 45 minutes; >50% face to face with patient and family, providing counselling regarding plans and recommendations, and in care coordination with her medical teams. Attending Statement The patient was seen and examined together with Dr. North on 07/21/2017 and I agree with the history, exam and plan as outlined in the note above. Palliative Brief Note Date of Service Jul 21, 2017 . Returned to reevaluate patient. Prior to visiting, reviewed her updated records in the EMR in detail and received signout from palliative physician. Reviewed status overnight with her bedside nurse. On arrival, patient was sitting up in bed, intermittently tearful complaining of severe symptoms through the night. Patient complained of 10/10 hip pain overnight.Patient has also been very anxious. On exam, vitals are stable, lungs are clear, RRR. Of note, has reportedly agreed to accept patient for transfer and management of metastatic disease in the right femoral head requiring fixation Levon North DO Jul 21, 2017 10:07 Maverick Willard MD Jul 21, 2017 14:38
[2017-07-21] MEDS ORDERED: HYDROmorphone 0.5 mg/0.5 mL iSecure Syringe IVPUSH PRN (10:30)
[2017-07-21] MEDS: Albuterol 2.5 mg/3 mL Inhalation Solution NEB PRN (11:42)
[2017-07-21 11:45] VITALS: PULSE 89; RESP 16; O2SAT 94
--- NOTE | 2017-07-21 14:22 | CCS NOTE ---
[facility] [address] [place] [id number] MEDICAL ONCOLOGY OFFICE NOTE PATIENT: LEXY ARANGO : 1955 MR#: [id number] DATE: 07/15/2017 JOB ID: [id number] DATE: 07/21/2017 SUBJECTIVE: The patient is a 61-year-old lady admitted with a pathologic fracture in the right lower pelvis and evidence of metastatic disease to the skeletal system. The patient has had no events overnight. She is planned to have bone scan. Her daughter was present at bedside when I saw her today. OBJECTIVE: Vitals are stable. O2 sat 94% on room air. Heart rate in the 80s. Slightly somnolent due to pain medication. No rash or edema. Respiratory status stable. LABORATORY DATA: Basic metabolic profile of two days ago showed a creatinine 1.05. ASSESSMENT AND PLAN: A 61-year-old lady admitted with a pathologic, severely symptomatic fracture of the right lower ischium in the right lower pelvis and evidence of metastatic disease to the skeletal system with significant tumor burden in the right femur head that is not fractured yet but at high risk. Imaging showed a left lower lobe lung mass with an ipsilateral infrahilar mass associated with it. Biopsy has been performed on Thursday. I have been in phone conversation with Pathology yesterday and today. We have now confirmation of adenocarcinoma of lung primary from the biopsy. The lesion was positive by immunohistochemistry for lung markers and negative for GI markers and breast. 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 Therefore, she has now confirmed stage IV lung adenocarcinoma. I discussed that with the patient and her daughter. The main treatment option is systemic chemotherapy, however, the patient has this question of unstable right femur head that needs to be addressed first. I spoke with Dr. Gerardo Ellis with Orthopedic Surgery at [facility] this morning. He reviewed the CT and he does recommend that the patient have a prophylactic fixation of the right femur head with theresa placement to prevent fracture before proceeding with radiation. He suggested that this could be done locally but our Orthopedic service has declined this and therefore the patient would have to be transferred and Dr. Ellis kindly agreed with that. I spoke with Dr. Gamino and we can plan transfer to [facility] for prophylactic fixation of the right femur head as soon as a bed is available. I anticipate that the patient can start chemotherapy approximately two weeks after the hip surgery and around the same timeline could start palliative radiation to both the right inferior ischium as well as right femur had. The treatment goal is palliative in nature and cannot be curative. This was discussed with the family. Most likely, after her discharge from [facility], she will be sent to rehabilitation and I suspect that this could be arranged to be here in this area so that she can follow up with me one week post discharge in the clinic. She has a pending bone scan to better understand the extent of her disease which likely is happening today and transfer potentially tomorrow per Dr. Gamino' conversation. TIME SPENT WITH PATIENT: Approximately 1 hour and 5 minutes were spent in counseling and coordination of care
--- NOTE | 2017-07-21 15:20 | PCM.PNMED ---
Subjective Date of Service Jul 21, 2017 Subjective Patient is seen and examined. We discussed a plan to send her to [facility] tomorrow some time, discussed transfer plan, patient's and daughter' s questions are answered. Patient has no other concerns Exam Vital Signs Vital Sign - Last Date Time Temp Pulse Resp B/P Pulse Ox O2 Delivery O2 Flow Rate FiO2 07/21/17 08:30 86 18 95 Room Air 07/21/17 08:26 36.7 134/86 07/20/17 07:50 1.00 Intake and Output 07/20/17 07/20/17 07/21/17 Cumulative From/Thru 15:00 23:00 07:00 07/15/17 15:57 - 07/21/17 02:49 Intake Total 1000 ml 81465 ml Output Total 1350 ml 9900 ml Balance -350 ml 3659 ml Intake Oral 1000 ml 9374 ml IV Total 4185 ml Output Urine Total 1350 ml 9900 ml # Voids 1 # Bowel Movements 1 1 Exam General: Appears alert and oriented HEENT: NCAT Neck: No JVD, trachea is central HEart: RRR, no s3/s4 sounds Abd: Soft, non tender, non distended Ext: No edema Psych: Negative for anxiety and agitation Neuro: No focal deficits IVs and Medications Medications Reviewed: Medications were reviewed in detail Lab and Diagnostics Result Diagram: 07/16/17202807/19/17 05 X-Rays, CTs and MRIs PROCEDURE: CT CHEST, ABDOMEN AND PELVIS [facility] CONTRAST ([id number]) INDICATIONS: malignancy, need to find primary TECHNIQUE: After the administration of oral and intravenous contrast, 5 mm thick sections acquired from the lung apices to the symphysis. 5 mm coronal and sagittal reformats were performed, with additional 7 mm coronal MIP reformats through the lungs. For radiation dose reduction, the following was used: automated exposure control, adjustment of mA and/or kV according to patient size. IMPRESSION: 1. Subcentimeter nodular radiopacities at the base of the right upper lobe. Differential considerations include infection and neoplasm. 2. 2 foci of masslike consolidation in the left lower lobe and left hilar lobe mass with moderate narrowing of the bronchi. These findings are highly suspicious for primary pulmonary neoplasm with mediastinal priya metastasis. If clinically indicated, the larger pulmonary lesion may be amenable to percutaneous CT-guided biopsy. Alternatively, bronchoscopic biopsy may be possible for the hilar mass. 3. Low density mass within the left atrium which is increased when compared with the study dated 03/08/14. This finding suggests atrial myxoma. Cardiology consult recommended. 4. Bony destruction and pathologic fracture of the right ischium. Similar destructive lesions are present within the right femoral head and proximal right diaphysis. These findings are most consistent with bony metastasis. These findings were discussed with Dr. Gamino at 3:42 PM on 07/16/17. Dictated by: Alison Cruz M.D. on 07/16/2017 at 15:19 Approved by: Alison Cruz M.D. on 07/16/2017 at 15:48 -------- PROCEDURE: X-RAY RIGHT FEMUR, TWO VIEWS ([id number]) INDICATIONS: to check for down stream fracture COMPARISON: None. FINDINGS: Bones: No fractures or dislocations. No suspicious bony lesions. Soft tissues: No suspicious soft tissue calcifications or masses. IMPRESSION: No fracture of the femur is found there is moderately severe to severe medial compartment degenerative knee joint osteoarthritis at the right knee with near [id number] articulation. Dictated by: Redd Burdick M.D. on 07/16/2017 at 19:12 Approved by: Redd Burdick M.D. on 07/16/2017 at 19:13 --- ROCEDURE: MRI BRAIN WITH AND WITHOUT CONTRAST ([id number]) INDICATIONS: Mets IMPRESSION: 1. 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 2. No metastatic brain disease seen. 3. Degree of cerebral atrophy appears normal for age. There are scattered bright flair signal changes that did not enhance, post consistent with small vessel ischemic change, possibility of demyelinating disease not excluded. Dictated by: Gallo Sanchez M.D. on 07/17/2017 at 11:26 Approved by: Gallo Sanchez M.D. on 07/17/2017 at 11:40 PROCEDURE: CT-GUIDED BIOPSY OF THE LUNG OR MEDIASTINUM ([id number]) Sedation analgesia for 30 minutes. INDICATIONS: lung mass biopsy IMPRESSION: Successful CT-guided biopsy of a left lung mass. Dictated by: Alison Cruz M.D. on 07/17/2017 at 11:27 Approved by: Alison Cruz M.D. on 07/17/2017 at 11:28 Assessment & Plan This is a 61-year-old female presenting today after having been seen at the cancer center for an MRA results that showed metastasis in the hip pelvic region. She was in such severe pain that she was sent to the hospital for adequate pain control while she is being worked up for a primary and treatment. 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 Results are expected early next week -- Femur x-ray ordered and showed no concern for R Femur fx. I personally reviewed this x-ray. -- brain scan ordered, CT dept says to wait till early next week due to CTguided biopsy this am, biopsy results are still pending -- MRI is done, L parietal bone metas but no brain mets -- Discussed Pelvic fracture with DR. Beto Grande, who says pt is at very high risk of hip fracture due to tumor burden, should not be bearing weight, send to . Discussed this with Dr. Magallanes, who feels her malignancy work up takes precedence, he feels pt should be on bed rest to avoid hip fractures -- [facility] med help line is contacted, regardless in touch with Dr. Gerardo Ellis Ortho-onc. Dr. Magallanes has talked to Dr. Gerardo Ellis who has reviewed the images mitigate to take patient in further stabilization procedure for the right hip. Current plan is to transfer her to [facility] tomorrow afternoon, with a plan to take her to the OR on . -- Bone scan 07/12 9 AM, f/u on result -- Lung adenocarcinoma per early path reports per Dr. Magallanes Right hip pain secondary to severe metastasis unknown primary, present on admission ongoing -- Patient was given 0.5 IV Dilaudid at the time of arrival which brought her pain down to 6 out of 10 -- Femur x-ray ordered and showed no concern for R Femur fx. I personally reviewed this x-ray. -- Palliative care is contacted, they have seen the patient. We appreciate the recommendations. Currently patient is on fentanyl patch with breakthrough Dilaudid -- Discussed Pelvic fracture with DR. Charley Grande, who says pt is at very high risk of hip fracture due to tumor burden, should not be bearing weight, send to . Discussed this with Dr. Magallanes, who feels her malignancy work up takes precedence, he feels pt should be on bed rest to avoid hip fractures. -- We will continue to follow up with Dr. Gerardo Ellis as about patient's plan for surgery at Acute Fever 07/21 -- Reported at around 6 PM, CXR UA and Blood Cx x 2 were ordered. -- F/U on results in the am. UTI is likely due to tucker and pt has said it felt uncomfortable to have tucker and she felt like she needed to void in spite of having the tucker. Atrial Myxoma, POA worsened since 2013 -- Cardiology Dr. Holman has seen the patient, we appreciate her recommendations -- "Atrial myxoma: The patient has a large lesion which puts her at risk for embolic phenomenon. Luckily, the patient has not had embolic phenomenon yet. Under normal circumstances, this lesion would warrant evaluation by CT surgeons to discuss risks, benefits and alternatives of left atrial myxoma resection to prevent embolic phenomenon in the future. However, given abnormal lung mass and possible metastatic disease, this additional heart surgery may not be in the patient's best interest. This certainly does not appear to be a life-threatening emergency. Myxoma was previously noted on a CT PE protocol performed in February 2014, but it has grown slightly from 2 cm in diameter to now 3 cm in diameter." Acute on chronic kidney injury present on admission resolved -- Chronic kidney disease stage III per her prior records -- IV fluid hydration as above, plan to continue through one more day after the CT scan -- We have gone ahead and completed the CT chest/abdomen/pelvic with contrast , results as above -- IV fluids were discontinued on 07/18/17 Diabetes mellitus type II chronic active -- Hold home medication metformin by mouth -- Low scale sliding scale -- Diabetic diet Hypertension chronic presumed stable -- Restarted home medications losartan 07/18/17 Hyperlipidemia chronic presumed stable -- We will continue home medication Anxiety chronic presumed stable -- Ativan 0.5 3 times a day when necessary by mouth for palliative care -- Needed a one time extra dose on 07/21 CAD status post bypass chronic stable -- Continue aspirin, Crestor -- "Coronary artery disease: This appears to be a rare phenomenon of congenitally small left main lesion. Right now, betablocker is on hold, but I think, in the jail, she may benefit from beta priyank for arrhythmia prevention. At this time, we recommend outpatient cardiology consultation and outpatient cardiothoracic surgery followup." Chronic kidney disease stage III stable -- Management as above Chronic sleep apnea, presumed -- Patient has been desaturating with sleep and requiring oxygen 1-2 L High risk medication: Fentanyl patch, by mouth Ativan, IV Dilaudid DVT prophylaxis with enoxaparin 40 mg daily subcutaneous CODE STATUS full code Alternate decision-maker , then the 3 children Patient is admitted under Inpatient status with expected length of stay greater than 2 midnights due to severity of presenting symptoms, risk of adverse event, and complexity of treatment plan. [facility] med help line is contacted, who put is in touch with Dr. Gerardo Ellis Ortho-onc. Dr. Magallanes has talked to Dr. Gerardo Ellis who has reviewed the images mitigate to take patient in further stabilization procedure for the right hip. Current plan is to transfer her to [facility] tomorrow afternoon, with a plan to take her to the OR on . She has pending fever work up. She can be transferred on her current floor meds. There is an echo from 07/16/17 we have done. Resuscitation Status: CPR: Attempt Resuscitation ( is alternate decision -maker) Time spent 30 min Tiffanie Gamino DO Jul 21, 2017 09:06
[2017-07-21] MEDS: MetoCLOpramide 5 mg/mL 2 mL Inj IVPUSH PRN (17:19)
--- NOTE | 2017-07-21 17:33 | DRSVH ---
PROCEDURE: MA WHOLE BODY BONE SCAN ([id number]) RADIOPHARMACEUTICAL: 25 mCi Tc-99m MDP IV. INDICATIONS: PRIMARY LUNG, CHECK FOR BONY METS TECHNIQUE: Delayed whole-body scintigrams were obtained approximately 3-4 hours after intravenous injection of r adiotracer. Anterior and posterior views were acquired from vertex to feet. Additional left and rig ht oblique views of the skull and spine were obtained. COMPARISON: [facility], CT, CT CHEST ABD PELVIS W CON, 07/16/2017, 14:54. FINDINGS: Physiologic uptake within the kidneys and bladder are present. There is increased uptake wi thin the posterior right scapula. Areas of uptake are noted within the spine at the level of T7, T8, T12 and L5. Lucency is identified at T8 on CT examination. The remaining levels appear to be suggesti ve of degenerative change within the facet joints. There is an asymmetric focus of uptake within the left calvarium. Focus of uptake is noted within the anterior right rib at what appears to be rib #5, corresponding to rib fracture on CT examination of 07/16/17. Increased uptake is noted within the post erior right ischium and obturator ring, as well as right femoral head. These areas also correspond to abnormal appearance on CT examination. IMPRESSION: 1. Multifocal areas of abnormal uptake with a majority corresponding to known CT abnormalities most s uggestive of metastatic disease. 2. Left calvarial focus is also noted suggestive of metastatic disease. There is no correlation of th is region with other recent imaging. Metastatic disease Dictated by: Mary Maxwell M.D. on 07/21/2017 at 17:27 Approved by: Mary Maxwell M.D. on 07/21/2017 at 17:32
[2017-07-21] MEDS ORDERED: LORazepam 0.5 mg Tablet PO ONE (17:50)
[2017-07-21 18:48] LABS: APPEARANCE,URINE TURBID (CLEAR,HAZY); COLOR,URINE YELLOW (YELLOW); OCCULT BLOOD,URINE LARGE (NEGATIVE); PH,URINE 5.5 (5.0-8.0); UROBILINOGEN,URINE NORMAL (NORMAL)
[2017-07-21] MEDS: LORazepam 1 mg Tablet PO SCH (20:03)
[2017-07-21 21:15] VITALS: BP 118/68; PULSE 89; RESP 18; O2SAT 95
[2017-07-22] VITALS (7 sets, daily range): BP systolic 101–118; BP diastolic 65–86; PULSE 88–118; RESP 16–20; O2SAT 91–99
[2017-07-22] MEDS ORDERED: LORazepam 0.5 mg Tablet PO ONE (00:15)
[2017-07-22] MEDS: Pantoprazole 40 mg ER24 Tablet PO SCH (05:53)
[2017-07-22] MEDS: LORazepam 1 mg Tablet PO SCH (07:19)
[2017-07-22] MEDS: Insulin LISPRO 300 Unit/3 mL Inj SUBQ SCH ×4 (08:00→22:00)
[2017-07-22 08:21] LABS: BASOPHILS % (AUTO) 0.2 % (0-3); EOSINOPHILS % (AUTO) 3.3 % (0-5); MONOCYTES % (AUTO) 9.4 % (4-12); Mean Corpuscular Hemoglobin 29.2 pg (27.0-35.0); Mean Corpuscular Volume 90.8 fL (81-100); NEUTROPHILS % (AUTO) 75.7 % (40-74); Platelet Count 223 bil/L (150-400)
[2017-07-22] MEDS: 0.9% Sodium Chloride 1,000 ML IV SCH ×2 (10:30→20:43)
--- NOTE | 2017-07-22 12:29 | PATH ---
SURGICAL PATHOLOGY Attending Physician:See Additional MD CASE STATUS: Signed Out PATIENT NAME: LEXY ARANGO PID: [id number] : 1955 DATE COLLECTED:07/17/2017 19:51 SPECIMEN: Lung Biopsy CLINICAL HISTORY: LEFT LUNG MASS 1). LEFT LUNG MASS FINAL DIAGNOSIS: 1. Left Lung Mass, Core Needle Biopsy: Poorly differentiated adenocarcinoma, with an immunophenotype consistent with primary lung adenocarcinoma. See comment. ICD10: C34.92 NOTE: Preliminary findings were discussed with Dr. Magallanes on 07/20/2017 and 07/21/2017. As part of routine clinical quality rn Dr. Galan and Dr. Hanson reviewed selected slides and agree with this interpretation. Molecular studies for ALK, EGFR, ROS1 and PDL1-Keytruda will be performed and the results reported as an addendum. GROSS DESCRIPTION: The specimen is received in formalin, labeled with the patient's name, sublabeled as Lx Biopsy (mass, lung), and consists of multiple needle core biopsies (lengths-1.3 cm to 1.5 cm, diameters-0.1 cm) of ramirez-white and lyn glistening partially translucent and focally black tissue. Section code: (A) core biopsies. Specimen entirely submitted. 07/18/17 JM MICRO DESCRIPTION: Immunohistochemical stains were performed to further characterize the cells of interest. All control stains showed appropriate reactivity. Results: CK7:Uniformly positive. CK20:Negative. TTF1:Positive. Napsin A:Rare positive cells. WT1:Negative. Calretinin:Negative. CDX2:Negative. S100:Negative. GATA3:Negative. Interpretation: The immunophenotype is consistent with a primary lung adenocarcinoma. The absence of WT1 and calretinin mitigate against a diagnosis of a mesothelioma. The absence of GATA3 mitigates against a diagnosis of metastatic breast carcinoma. The negative CDX2, CK20 and positive CK7 mitigate against a diagnosis of metastatic colonic adenocarcinoma. * This test was developed and its performance characteristics determined by [employer]. It has not been cleared or approved by the U.S. Food and Drug Administration. The FDA has determined that such clearance or approval is not necessary. This test is used for clinical purposes. It should not be regarded as investigational or for research. ICD-9 CODES: CPT CODES: 1: 04867, 50375, 11764(8) PROCEDURE/ADDENDA: Addendum SPI Addendum Diagnosis TEST: PD-L1 Keytruda Immunohistochemistry analysis: RESULTS: 90% High Expression Addendum Comment This test was performed by [employer] [employer] at [facility], [address]. [facility] is a business unit of [employer] a wholly-owned subsidiary of [employer]. For complete details please see [facility] original report [id number]. Electronically Signed Out Saira Márquez MD Electronically Signed Out Saira Márquez MD [facility], [address], [place] [address] Technical component performed at [facility], [facility] [address], [place], [address]
--- NOTE | 2017-07-22 13:45 | PCM.PALLBR ---
Palliative Brief Note Date of Service Jul 22, 2017 . Returned to reevaluate patient prior to her anticipated transfer to [facility]. Reviewed her updated records in the EMR in detail and spoke with her bedside nurse. She was awake but slightly drowsy. Requested increased frequency of her lorazepam which I arranged. Pain control seems adequate on current regimen. Physical exam stable. Palliative medicine will sign off at this time has plans for her to transfer later today. Total time today: 20 minutes with patient, greater than 50% at her side and in care coordination. Maverick Willard MD Jul 22, 2017 13:45
--- NOTE | 2017-07-22 16:59 | PCM.ADCARE ---
Advance Care Planning Note Purpose of Encounter: To determine patient's goals of care in the event she suffers a sudden cariac or respiratory event that is life-threatening Parties in Attendance: Patient, Patient's daughter and Dr. Tiffanie Gamino Decisional Capacity: Good Subjective: I reviewed her recent diagnosis of metastatic cancer and her desire for ongoing aggressive care including intubation and potential mechanical ventilation should she be unable to breath on her own; also discussed who would speak on her behalf should she be unable to do so and discussed what conversation she had had with her family so they understand her desires if such situation occurred now or in the future. She states her and then the 3 children can act as her alternate decision makers Objective: Patient has a few risk factors for nursing home morbidity such as obesity, DM2, and HTN. Her metastatic disease could be due to breast or lung cancer or some other primary. Her survival chances are dependent on what type of cancer she has , how much it has spread and the available treatments. Patient has not yet had a chance to understand this as she has not yet had a biopsy based diagnosis. Will need to discuss goals of care again when this info becomes available to her. Goals of Care Determinations: She has good decisional capacity and has good family and spiritual support Plan: Patient would like to seek treatment for her newly diagnosed metastatic cancer of unknown primary. She feels that this can be taken care of she can continue to have quality of life similar to prior to this diagnosis. She feels that her and children are able to support her through this journey and is very thankful for their support. 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 Care Plan Documenation: Documented as above and in the H&P Tiffanie Gamino DO Jul 22, 2017 16:58
--- NOTE | 2017-07-22 17:41 | PCM.PNMED ---
Subjective Date of Service Jul 22, 2017 Subjective Pt denies any overnight events. Was pending transfer to [facility], cancelled due to UTI and Bacteremia per Dr. Ellis at [facility]. Exam Vital Signs Vital Sign - Last Date Time Temp Pulse Resp B/P Pulse Ox O2 Delivery O2 Flow Rate FiO2 07/22/17 16:14 36.8 88 18 118/86 98 Room Air 07/22/17 08:15 2.00 Intake and Output 07/21/17 07/21/17 07/22/17 Cumulative From/Thru 15:00 23:00 07:00 07/15/17 15:57 - 07/22/17 06:44 Intake Total 800 ml 940 ml 240 ml 68407 ml Output Total 1850 ml 1300 ml 100 ml 33332 ml Balance -1050 ml -360 ml 140 ml 2389 ml Intake Oral 800 ml 940 ml 240 ml 26636 ml IV Total 4185 ml Output Urine Total 1850 ml 1300 ml 100 ml 64877 ml # Voids 1 # Bowel Movements 0 0 0 1 Exam General: Appears alert and oriented HEENT: NCAT Neck: No JVD, trachea is central HEart: RRR, no s3/s4 sounds Abd: Soft, non tender, non distended Ext: No edema Psych: Negative for anxiety and agitation Neuro: No focal deficits IVs and Medications Medications Reviewed: Medications were reviewed in detail Lab and Diagnostics Result Diagram: 07/22/17 0810 07/22/17 0810 X-Rays, CTs and MRIs PROCEDURE: CT CHEST, ABDOMEN AND PELVIS WTIH CONTRAST ([id number]) INDICATIONS: malignancy, need to find primary TECHNIQUE: After the administration of oral and intravenous contrast, 5 mm thick sections acquired from the lung apices to the symphysis. 5 mm coronal and sagittal reformats were performed, with additional 7 mm coronal MIP reformats through the lungs. For radiation dose reduction, the following was used: automated exposure control, adjustment of mA and/or kV according to patient size. IMPRESSION: 1. Subcentimeter nodular radiopacities at the base of the right upper lobe. Differential considerations include infection and neoplasm. 2. 2 foci of masslike consolidation in the left lower lobe and left hilar lobe mass with moderate narrowing of the bronchi. These findings are highly suspicious for primary pulmonary neoplasm with mediastinal priya metastasis. If clinically indicated, the larger pulmonary lesion may be amenable to percutaneous CT-guided biopsy. Alternatively, bronchoscopic biopsy may be possible for the hilar mass. 3. Low density mass within the left atrium which is increased when compared with the study dated 03/08/14. This finding suggests atrial myxoma. Cardiology consult recommended. 4. Bony destruction and pathologic fracture of the right ischium. Similar destructive lesions are present within the right femoral head and proximal right diaphysis. These findings are most consistent with bony metastasis. These findings were discussed with Dr. Gamino at 3:42 PM on 07/16/17. Dictated by: Alison Cruz M.D. on 07/16/2017 at 15:19 Approved by: Alison Cruz M.D. on 07/16/2017 at 15:48 -------- PROCEDURE: X-RAY RIGHT FEMUR, TWO VIEWS ([id number]) INDICATIONS: to check for down stream fracture COMPARISON: None. FINDINGS: Bones: No fractures or dislocations. No suspicious bony lesions. Soft tissues: No suspicious soft tissue calcifications or masses. IMPRESSION: No fracture of the femur is found there is moderately severe to severe medial compartment degenerative knee joint osteoarthritis at the right knee with near qfty-hh-lyat articulation. Dictated by: Redd Burdick M.D. on 07/16/2017 at 19:12 Approved by: Redd Burdick M.D. on 07/16/2017 at 19:13 --- ROCEDURE: MRI BRAIN WITH AND WITHOUT CONTRAST ([id number]) INDICATIONS: Mets IMPRESSION: 1. 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 2. No metastatic brain disease seen. 3. Degree of cerebral atrophy appears normal for age. There are scattered bright flair signal changes that did not enhance, post consistent with small vessel ischemic change, possibility of demyelinating disease not excluded. Dictated by: Gallo Sanchez M.D. on 07/17/2017 at 11:26 Approved by: Gallo Sanchez M.D. on 07/17/2017 at 11:40 PROCEDURE: CT-GUIDED BIOPSY OF THE LUNG OR MEDIASTINUM ([id number]) Sedation analgesia for 30 minutes. INDICATIONS: lung mass biopsy IMPRESSION: Successful CT-guided biopsy of a left lung mass. Dictated by: Alison Cruz M.D. on 07/17/2017 at 11:27 Approved by: Alison Cruz M.D. on 07/17/2017 at 11:28 Assessment & Plan This is a 61-year-old female presenting today after having been seen at the cancer center for an MRA results that showed metastasis in the hip pelvic region. She was in such severe pain that she was sent to the hospital for adequate pain control while she is being worked up for a primary and treatment. Severe metastasis most likely due to lung primary, present on admission ongoing -- Continue fentanyl 100 tory every 72 hours, IV Dilaudid 0.5 mg every 2 hours when necessary for breakthrough, she also has Tylenol with codeine when necessary -- CT chest abdominopelvic with by mouth and IV contrast ordered, discussed case with : Dr Cruz called with the results, most likely lung primary , atrial myxoma increased in size since 2013, pathological ischial fracture -- Femur x-ray ordered and showed no concern for R Femur fx. -- MRI-L parietal bone mets but no brain mets. -- Per Ortho, Dr. Beto Grande, pt is at very high risk of hip fracture due to tumor burden, should not be bearing weight, send to . Per Oncology, Dr. Magallanes, who feels her malignancy takes precedence, he feels pt should be on bed rest to avoid hip fractures. -- [facility] med help line is contacted, Dr. Gerardo Ellis Ortho- onc. Dr. Magallanes has talked to Dr. Gerardo Ellis who has reviewed the images to take patient in further stabilization procedure for the right hip. - 07/22- Current plan of transfer her to [facility] was put on hold due to +Blood Cx and Urine Cx, E Coli. Dr. Ellis would like us to treat infection and d/c home for outpatient follow up if possible. Otherwise, can treat and transfer in few days. -- Lung adenocarcinoma per early path reports per Dr. Magallanes from CT guided bx. Right hip pain secondary to severe metastasis unknown primary, present on admission ongoing -- Patient was given 0.5 IV Dilaudid at the time of arrival which brought her pain down to 6 out of 10 -- Femur x-ray ordered and showed no concern for R Femur fx. I personally reviewed this x-ray. -- Palliative care is contacted, they have seen the patient. We appreciate the recommendations. Currently patient is on fentanyl patch with breakthrough Dilaudid -- Plan as above. Septicemia due to UTI- +Blood Cx and Urine Cx, E Coli. Not present on admit, active. -- Reported at around 6 PM, CXR UA and Blood Cx x 2 were ordered. Atrial Myxoma, POA, active- worsened since 2013 -Myxoma was previously noted on a CT PE protocol performed in February 2014, but it has grown slightly from 2 cm in diameter to now 3 cm in diameter. - Cardiology, Dr. Holman. Acute on chronic kidney injury present on admission resolved -- Chronic kidney disease stage III per her prior records -- IV fluid hydration as above, plan to continue through one more day after the CT scan -- We have gone ahead and completed the CT chest/abdomen/pelvic with contrast , results as above -- IV fluids were discontinued on 07/18/17 Diabetes mellitus type II chronic active -- Hold home medication metformin by mouth -- Low scale sliding scale -- Diabetic diet Hypertension chronic presumed stable -- Restarted home medications losartan 07/18/17 Hyperlipidemia chronic presumed stable -- We will continue home medication Anxiety chronic presumed stable -- Ativan 0.5 3 times a day when necessary by mouth for palliative care -- Needed a one time extra dose on 07/21 CAD status post bypass chronic stable -- Continue aspirin, Crestor -- "Coronary artery disease: This appears to be a rare phenomenon of congenitally small left main lesion. Right now, betablocker is on hold, but I think, in the nursing home, she may benefit from beta priyank for arrhythmia prevention. At this time, we recommend outpatient cardiology consultation and outpatient cardiothoracic surgery followup." Chronic kidney disease stage III stable -- Management as above Chronic sleep apnea, presumed -- Patient has been desaturating with sleep and requiring oxygen 1-2 L High risk medication: Fentanyl patch, by mouth Ativan, IV Dilaudid DVT prophylaxis with enoxaparin 40 mg daily subcutaneous CODE STATUS full code Alternate decision-maker , then the 3 children Dispo- 07/22- Current plan of transfer her to [facility] was put on hold due to +Blood Cx and Urine Cx, E Coli. Dr. Ellis would like us to treat infection and d/c home for outpatient follow up if possible. Otherwise, can treat and transfer in few days. Resuscitation Status: CPR: Attempt Resuscitation ( is alternate decision -maker) Collins Yoo MD Jul 22, 2017 17:41
--- NOTE | 2017-07-22 19:41 | CCS NOTE ---
[facility] [address] [place] [id number] MEDICAL ONCOLOGY OFFICE NOTE PATIENT: LEXY ARANGO : 1955 MR#: [id number] DATE: 07/15/2017 JOB ID: [id number] DATE: 07/22/2017 SUBJECTIVE: The patient was supposed to be transferred to [facility] today but when I came in the afternoon to the floor I learned from the nurse that the patient had a slight temperature yesterday evening at 38.5 that led to blood cultures that have grown a gram-negative theresa that appears to be E. coli. Urine culture has been positive as well. She has a Garcia catheter and most likely has a urinary tract infection causing the bacteremia. The transfer has been canceled since the orthopedic surgeon had suggested postponing prophylactic fixation of the right femur in this setting. She has been started on ciprofloxacin. I saw her in the room with her other daughter present. She continues to have severe pain in the lower pelvis and had to take a significant degree of pain medication with Dilaudid, mostly being somnolent, to control it. LAB STUDIES: Show a slight elevation of white count. Creatinine, which had improved, has now deteriorated again from 1.05 to now 1.9. ASSESSMENT: A 61-year-old lady with stage IV lung adenocarcinoma newly diagnosed during this hospitalization with skeletal metastases and a pathologic fracture of the right ischium and a critical lesion in the right femur head at risk of fracture. Her bone scan shows several other lesions in the skeletal system in the thoracic and upper lumbar spine, as well as calvarium, which do not appear to be critical on the CT scan in terms of epidural involvement. Unfortunately our multidisciplinary plan of the orthopedic surgery transfer for prophylactic fixation of the right femur is not happening due to the patient developing fever and positive E. coli blood culture. I would recommend Infectious Disease consultation. This might require a change of overall plan, as this will further substantially delay the multiple steps of surgery, then being able to receive chemotherapy. The patient is still in severe pain and the daughter and family are asking for something to address this more aggressively. We will have to discuss with radiation therapy and involving Dr. Ellis of orthopedic surgery to possibly consider changing the plan and going ahead with radiation with a palliative intent because of the severity of the pain. I will try to reach Dr. Thompson of Radiation tomorrow to discuss this issue.
[2017-07-22] MEDS: LORazepam 1 mg Tablet PO PRN (20:41)
[2017-07-22] MEDS: Albuterol 2.5 mg/3 mL Inhalation Solution NEB PRN (22:07)
[2017-07-23] VITALS (7 sets, daily range): BP systolic 101–118; BP diastolic 51–73; PULSE 98–108; RESP 18–20; O2SAT 91–100
[2017-07-23] MEDS: LORazepam 1 mg Tablet PO PRN ×3 (00:08→13:12)
[2017-07-23] MEDS: 0.9% Sodium Chloride 1,000 ML IV SCH ×2 (06:30→17:51)
[2017-07-23] MEDS: Pantoprazole 40 mg ER24 Tablet PO SCH (07:49)
[2017-07-23] MEDS: FENTANYL TOPICAL SCH ×2 (07:54)
[2017-07-23] MEDS: Insulin LISPRO 300 Unit/3 mL Inj SUBQ SCH ×4 (08:00→21:49)
[2017-07-23 08:05] LABS: BASOPHILS % (AUTO) 0.1 % (0-3); EOSINOPHILS % (AUTO) 1.3 % (0-5); MONOCYTES % (AUTO) 10.9 % (4-12); Mean Corpuscular Hemoglobin 29.3 pg (27.0-35.0); Mean Corpuscular Volume 90.1 fL (81-100); NEUTROPHILS % (AUTO) 76.5 % (40-74); Platelet Count 205 bil/L (150-400)
[2017-07-23] MEDS: Albuterol 2.5 mg/3 mL Inhalation Solution NEB PRN (12:32)
--- NOTE | 2017-07-23 12:46 | PCM.PNMED ---
Subjective Date of Service Jul 23, 2017 Subjective Pt is uncomfortable due to pain R Hip. Dialudid seems to help but gets her very drowsy per daughter Exam Vital Signs Vital Sign - Last Date Time Temp Pulse Resp B/P Pulse Ox O2 Delivery O2 Flow Rate FiO2 07/23/17 07:45 36.7 103 18 110/61 100 Nasal Cannula 2.00 Intake and Output 07/22/17 07/22/17 07/23/17 Cumulative From/Thru 15:00 23:00 07:00 07/15/17 15:57 - 07/23/17 06:52 Intake Total 400 ml 680 ml 56068 ml Output Total 700 ml 750 ml 66786 ml Balance -300 ml -70 ml 2019 ml Intake Oral 400 ml 680 ml 82985 ml IV Total 4185 ml Output Urine Total 700 ml 750 ml 60691 ml # Voids 1 # Bowel Movements 0 1 Exam General: +Visible Pain. Lying in bed. Drowsy. HEENT: NC/AT, EOMI, PERRLA. Neck: No JVD, trachea is central Heart: RRR, no s3/s4 sounds Abd: Soft, Obese, non-tender, non-distended Ext: No edema Psych: Negative for anxiety and agitation Neuro: No focal deficits IVs and Medications Medications Reviewed: Medications were reviewed in detail Lab and Diagnostics Result Diagram: 07/23/1772407/23/17724 X-Rays, CTs and MRIs PROCEDURE: CT CHEST, ABDOMEN AND PELVIS WTIH CONTRAST ([id number]) INDICATIONS: malignancy, need to find primary TECHNIQUE: After the administration of oral and intravenous contrast, 5 mm thick sections acquired from the lung apices to the symphysis. 5 mm coronal and sagittal reformats were performed, with additional 7 mm coronal MIP reformats through the lungs. For radiation dose reduction, the following was used: automated exposure control, adjustment of mA and/or kV according to patient size. IMPRESSION: 1. Subcentimeter nodular radiopacities at the base of the right upper lobe. Differential considerations include infection and neoplasm. 2. 2 foci of masslike consolidation in the left lower lobe and left hilar lobe mass with moderate narrowing of the bronchi. These findings are highly suspicious for primary pulmonary neoplasm with mediastinal priya metastasis. If clinically indicated, the larger pulmonary lesion may be amenable to percutaneous CT-guided biopsy. Alternatively, bronchoscopic biopsy may be possible for the hilar mass. 3. Low density mass within the left atrium which is increased when compared with the study dated 03/08/14. This finding suggests atrial myxoma. Cardiology consult recommended. 4. Bony destruction and pathologic fracture of the right ischium. Similar destructive lesions are present within the right femoral head and proximal right diaphysis. These findings are most consistent with bony metastasis. These findings were discussed with Dr. Gamino at 3:42 PM on 07/16/17. Dictated by: Alison Cruz M.D. on 07/16/2017 at 15:19 Approved by: Alison Cruz M.D. on 07/16/2017 at 15:48 -------- PROCEDURE: X-RAY RIGHT FEMUR, TWO VIEWS ([id number]) INDICATIONS: to check for down stream fracture COMPARISON: None. FINDINGS: Bones: No fractures or dislocations. No suspicious bony lesions. Soft tissues: No suspicious soft tissue calcifications or masses. IMPRESSION: No fracture of the femur is found there is moderately severe to severe medial compartment degenerative knee joint osteoarthritis at the right knee with near vhth-bu-dxdn articulation. Dictated by: Redd Burdick M.D. on 07/16/2017 at 19:12 Approved by: Redd Burdick M.D. on 07/16/2017 at 19:13 --- ROCEDURE: MRI BRAIN WITH AND WITHOUT CONTRAST ([id number]) INDICATIONS: Mets IMPRESSION: 1. 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 2. No metastatic brain disease seen. 3. Degree of cerebral atrophy appears normal for age. There are scattered bright flair signal changes that did not enhance, post consistent with small vessel ischemic change, possibility of demyelinating disease not excluded. Dictated by: Gallo Sanchez M.D. on 07/17/2017 at 11:26 Approved by: Gallo Sanchez M.D. on 07/17/2017 at 11:40 PROCEDURE: CT-GUIDED BIOPSY OF THE LUNG OR MEDIASTINUM ([id number]) Sedation analgesia for 30 minutes. INDICATIONS: lung mass biopsy IMPRESSION: Successful CT-guided biopsy of a left lung mass. Dictated by: Alison Cruz M.D. on 07/17/2017 at 11:27 Approved by: Alison Cruz M.D. on 07/17/2017 at 11:28 Assessment & Plan This is a 61-year-old female presenting today after having been seen at the cancer center for an MRA results that showed metastasis in the hip pelvic region. She was in such severe pain that she was sent to the hospital for adequate pain control. New diagnosis stage IV lung adenocarcinoma diagnosed during this hospitalization with skeletal metastases and a pathologic fracture of the right ischium and a critical lesion in the right femur head at risk of fracture. Stage IV lung adenocarcinoma with skeletal metastases and a pathologic fracture of the right ischium and a critical lesion in the right femur head at risk of fracture, POA, active- Was dx during this admission. CT chest abdominopelvic with by mouth and IV contrast ordered, discussed case with : Dr Cruz called with the results, most likely lung primary, atrial myxoma increased in size since 2013, ischial fracture. - Lung adenocarcinoma per early path reports per Dr. Magallanes from CT guided bx. Pain- IV Dilaudid, Fentanyl. -Per Ortho, Dr. Beto Grande, pt is at very high risk of hip fracture due to tumor burden, should not be bearing weight[facility]. Dr. Magallanes has talked to Dr. Gerardo Ellis who has reviewed the images and rec prophylactic fixation of the right femur head with theresa. - 07/22- Current plan of transfer her to [facility] was put on hold due to +Blood Cx and Urine Cx, E Coli. Dr. Ellis would like us to treat infection before procedure. Oncology- Dr. Magallanes following, current plan to start XRT with Dr. Thompson on 07/24. Will talk again w/ Dr. Ellis from [facility] to determine updated plan for fixation right femur head now that XRT has already been started. - Per Dr. Magallanes, anticipate that the patient can start chemotherapy approximately two weeks after hip surgery. Right hip pain secondary to severe metastasis unknown primary, present on admission ongoing -- Patient was given 0.5 IV Dilaudid at the time of arrival which brought her pain down to 6 out of 10 -- Femur x-ray ordered and showed no concern for R Femur fx. I personally reviewed this x-ray. -- Palliative care is contacted, they have seen the patient. We appreciate the recommendations. Currently patient is on fentanyl patch with breakthrough Dilaudid -- Plan as above. Sepsi due to UTI- Not present on admit, active. Blood Cx and Urine Cx, E Coli. Fever 38.2. Pt leukocysotis has improved 10/25->8.4 - Source tucker catheter. - Antibiotics Ciprofloxacin started 07/22. - Consulted ID, Dr Ramírez, given plan for theresa placement in R Femur and GN Bacteremia. Appreciate recs. Acute on chronic kidney injury present on admission, active. -- Chronic kidney disease stage III per her prior records. Scr baseline appears ~ 1.0 -- IV fluids were discontinued on 07/18/17, resumed 07/23 as pt appeared hypovolemic. - Hold Nephrotoxic meds. - Monitor I/O. Atrial Myxoma, POA, active- worsened since 2013 -Myxoma was previously noted on a CT PE protocol performed in February 2014, but it has grown slightly from 2 cm in diameter to now 3 cm in diameter. - Cardiology, Dr. Holman was called. Hypertension chronic presumed stable -- Restarted home medications losartan 07/18/17, held again 07/23. Diabetes mellitus type II chronic active -- Hold home medication metformin by mouth -- Low scale sliding scale -- Diabetic diet Hyperlipidemia chronic presumed stable -- We will continue home medication Anxiety chronic presumed stable -- Ativan 0.5 3 times a day when necessary by mouth for palliative care CAD status post bypass chronic stable -- Continue aspirin, Crestor -- Per previous note- Coronary artery disease: This appears to be a rare phenomenon of congenitally small left main lesion. Right now, betablocker is on hold, but I think, in the snf, she may benefit from beta priyank for arrhythmia prevention. At this time, we recommend outpatient cardiology consultation and outpatient cardiothoracic surgery followup. Chronic sleep apnea, presumed -- Patient has been desaturating with sleep and requiring oxygen 1-2 L High risk medication: Fentanyl patch, by mouth Ativan, IV Dilaudid DVT prophylaxis with enoxaparin 40 mg daily subcutaneous CODE STATUS full code Alternate decision-maker , then the 3 children Dispo- 07/22- Current plan of transfer her to [facility] was put on hold due Sepsis from UTI. See plan above. Resuscitation Status: CPR: Attempt Resuscitation ( is alternate decision -maker) Collins Yoo MD Jul 23, 2017 12:46
--- NOTE | 2017-07-23 15:21 | DRSVH ---
PROCEDURE: X-RAY CHEST ONE VIEW, PORTABLE ([id number]) INDICATIONS: Fever TECHNIQUE: One view of the chest was acquired. COMPARISON: [facility], CR, CHEST 1VW (PORTABLE[facility] PEL[facility] W CON, 07/16/2017, 14:54. [facility], CT, CT BX LUNG MEDIAST INUM, 07/17/2017, 10:28. [facility], CR, XR CHEST 1VW (PORTABLE), 07/17/2017, 11:49. FINDINGS: Surgical changes and devices: Median sternotomy wires. Lungs and pleura: No pleural effusions or pneumothorax. Lung volumes are low. Left hilar mass rede monstrated in this patient with history of lung cancer. Mediastinum: Mediastinal contours appear normal. Heart size is normal. Bones and chest wall: No suspicious bony lesions. Overlying soft tissues appear unremarkable. IMPRESSION: 1. Left hilar mass redemonstrated otherwise no definite acute cardiopulmonary process is seen. Dictated by: Aryan BENITEZ Interpreted: Mary Maxwell MD on 07/22/2017 at 9:25 Approved by: Mary Maxwell M.D. on 07/23/2017 at 15:19
[2017-07-23] MEDS: HYDROmorphone 1 mg/mL Inj IVPUSH PRN (15:36)
--- NOTE | 2017-07-23 16:12 | CCR SIM ---
[facility] [address] [address] RADIATION ONCOLOGY SIMULATION NOTE PATIENT: LEXY ARANGO : 1955 MR#: [id number] DATE: 07/15/2017 JOB ID: [id number] DATE: 07/23/2017 SIMULATION NOTE: I received a phone call from Dr. Magallanes this morning calling from home. The patient had originally being considered for a course of palliative irradiation to her right and left hip regions following consultation with Dr. Rosenbaum. Subsequently Dr. Magallanes consulted Orthopedic service locally to place a surgical pin. This was refused locally and arrangements were made for her to be transferred to [facility]. Thus, in concert with Dr. Magallanes, we held on the radiation pending such pinning. Then I received a phone call this morning claiming that the patient had in the interim developed a urinary infection and subsequently sepsis. Dr. Magallanes has spoken to orthopedic service at [facility] and now this venture has been indefinitely delayed. Therefore, he asked us to simulate the patient today and treat what he thinks is the site of her pain, i.e. the path fracture in her right ischium, avoiding treating the right femur. Then, at such point as appropriate, the right femur will be pinned and then the patient will be reconsidered for radiation to the right femur as well as the left hip as originally intended based on context. This was discussed with patient's as patient is quite sleepy today. He gave his permission to proceed along these lines. The patient was then brought to the PET-CT simulator and placed supine. I established tentative field borders, following which the area of the pelvis and femurs were scanned. These images are transferred to the treatment planning workstation for accurate contouring and treatment planning to ensue. Simulation occurred without incident.
--- NOTE | 2017-07-23 17:02 | CONS ---
[address] [address] CONSULTATION REPORT PATIENT: LEXY ARANGO : 1955 MR#: [id number] ADMIT: 07/15/2017 JOB ID: [id number] DATE OF SERVICE: 07/23/2017 INFECTIOUS DISEASE CONSULTATION: I thank Dr. Yoo for this timely consult. REASON FOR CONSULTATION: Bacteremic E. coli complicated urinary tract infection. HISTORY OF PRESENT ILLNESS: The patient is an unfortunate 61-year-old woman whose past medical history includes hypertension, diabetes, and coronary artery disease, who is status post CABG. Her tells us she has been having some difficulty ambulating due to severe right-sided hip pain which has apparently gone on for quite some time but became especially severe about 10 days ago. This eventually led to some imaging which disclosed what appeared to be metastatic disease. She was subsequently admitted to this facility back on July 15. What has become clear is that she has a primary lung adenocarcinoma and this is now biopsy-proven. This has resulted in spread to the calvarium as well as the right ischium, right femoral head, and the thoracic and lumbar spine. This has been established by bone scan. The most crucial clinical lesions are the ischium and the femur. There had been a plan to transfer the patient to the [facility] for definitive therapy that was supposed to be executed today, but unfortunately the patient has developed a nosocomial fever, leukocytosis, and bacteremic E. coli urinary tract infection. ID consultation is now requested. The patient is quite somnolent today. Because of her severe pain she has been given some Dilaudid and she can give a bit of history but not much/ it sounds as if during her hospital stay she requested a Garcia catheter because of the extreme pain in her right hip she suffered when she attempted to get onto the bedpan to urinate. A urine sample done earlier in her admission showed no white cells, and there was no complaint of urinary symptoms on admission, but she has subsequently developed fever, chills, and leukocytosis. Blood and urine cultures are now growing gram-negative rods. PAST MEDICAL HISTORY: 1. Hypertension. 2. Diabetes. 3. Coronary artery disease status post CABG. 4. Anxiety. 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 By the time she convalesced from fracturing her arm, the decision was made just not to return to work. Her reports she stopped smoking two years ago, but notes in the chart indicate it may have been more recent, and suspiciously she is now wearing a nicotine patch. She does not drink any alcohol at all. She and her traveled to [place] and the [facility] a few years ago but otherwise no exotic or foreign travel. She has never lived overseas. FAMILY HISTORY: Negative for tuberculosis in any first- or second-degree relatives. REVIEW OF SYSTEMS: Was done but was a bit limited as the patient is quite lethargic after an injection of Dilaudid. At this point she has no significant headache. No visual complaint. No sore throat. She denies cough or shortness of breath. No abdominal pain, nausea, or vomiting. She has a Garcia in place so she has no urinary symptoms. She does note excruciating pain in the right hip area and that is the reason for the Dilaudid of course. She is nonambulatory because of this unstable pain. The remainder of the review of systems either could not be obtained or was negative. PHYSICAL EXAMINATION: Reveals a lethargic afebrile obese woman lying supine in her hospital bed. Her BMI is 38. Her weight is 112 kg. Temperature 36.8, pulse 98, respiratory rate 20, blood pressure 104/59. She is saturating 95% but she is requiring 2-3 L to maintain that saturation. The patient's head is without trauma. There is no temporal wasting. Eyes without conjunctivitis or scleral icterus. Oral cavity difficult to examine as she is very lethargic, but no thrush, hairy leukoplakia, or herpetic lesions are seen. Neck is obese, difficult to examine, but without obvious adenopathy or stiffness. Lungs are relatively clear, but with hypoventilation due to her lethargic and sedated state. Cardiac tones distant. Regular rate and rhythm. Abdomen obese, soft, nontender. Without apparent organomegaly or ascites. Garcia catheter is present, draining clear yellow urine. No suprapubic fullness. The legs are arranged so as to minimize pain due to any movement of the right hip, so a very full exam is not going to be possible. The patient is obviously tender over the right hip region. No obvious synovitis is noted. No skin rash is noted. The patient is grossly neurologically intact but it is very difficult to interact with her given her state of lethargy and her severe right hip pain. LABORATORIES: Include white blood count 12,000 yesterday and 8000 today. Mild left shift is present with those numbers. Creatinine 1.59. Her creatinine has been bouncing around since admission. It started off at 1.4, went down as low as 0.9, and is now 1.6. The patient's hemoglobin A1c is 6.2, so pretty good. Urinalysis: Greater than 50 white cells. Micro studies notable for E. coli growing from blood and urine. The susceptibilities in the blood are pending but the urine is exquisitely sensitive to all tested antibiotics including quinolones. IMAGING: Multiple x-rays were reviewed and I personally reviewed these films. CT of the chest, abdomen, and pelvis shows, among other things, two masses in the left lung which look like a primary malignancy. There is also a mass in the left atrium which could be a myxoma or conceivably even a metastatic lesion. There is bony destruction of the right ischium and involvement of the femoral head. Brain MRI shows a calvarial lesion. Chest x-ray shows left hilar mass. Nuclear medicine scan shows multifocal areas of uptake, especially in the right scapula, the thoracic and lumbar spine, the calvarium, and the right hip area. IMPRESSION: This is an unfortunate woman who has just recently been diagnosed with adenocarcinoma of the lung which is stage 4 and spread to multiple areas including especially the right ischium and femur. She is now receiving radiation therapy with plans for definitive surgical treatment of that right hip. In the very near future. She was initially free of infection when admitted, but the Garcia was needed because of difficulty urinating and severe right hip pain, and she has now developed unfortunately a bacteremic E. coli complicated urinary tract infection. RECOMMENDATION: 1. The patient has already been started on oral Cipro for presumed UTI and I think this is reasonable. Even though this is a bacteremic infection, Cipro should reach excellent levels in the blood and a dose of 500 b.i.d. should be good in a patient with a moderately elevated creatinine such as this. 2. Will continue to closely watch this patient with you and if need be we can add or change to intravenous therapy, but at this point the patient is hemodynamically stable and does not appear overtly toxic, and in fact by some reports is already better since yesterday. Thank you very much.
[2017-07-24] MEDS: LORazepam 1 mg Tablet PO PRN ×2 (01:48→23:44)
[2017-07-24] MEDS: 0.9% Sodium Chloride 1,000 ML IV SCH ×2 (04:02→16:27)
[2017-07-24 05:24] LABS: BASOPHILS % (AUTO) 0.2 % (0-3); MONOCYTES % (AUTO) 12.8 % (4-12); Mean Corpuscular Volume 90.7 fL (81-100); Platelet Count 174 bil/L (150-400)
[2017-07-24 06:45] VITALS: BP 114/75; PULSE 92; RESP 16; O2SAT 95
[2017-07-24] MEDS: Insulin LISPRO 300 Unit/3 mL Inj SUBQ SCH ×4 (08:00→21:33)
[2017-07-24] MEDS: Pantoprazole 40 mg ER24 Tablet PO SCH (09:32)
[2017-07-24 09:54] VITALS: PULSE 95; O2SAT 96
[2017-07-24] MEDS: HYDROmorphone 1 mg/mL Inj IVPUSH PRN ×3 (12:10→21:41)
[2017-07-24 15:54] VITALS: BP 108/68; PULSE 89; RESP 18; O2SAT 93
--- NOTE | 2017-07-24 16:07 | PROG NOTE ---
[address] [address] PROGRESS NOTE PATIENT: LEXY ARANGO : 1955 MR#: [id number] ADMIT: 07/15/2017 JOB ID: [id number] DATE: 07/24/2017 REASON FOR FOLLOWUP: Bacteremic E. coli urinary tract infection in the setting of metastatic cancer. INTERVAL HISTORY: The patient just returned back from her 1st session of radiation for her painful right hip region metastatic lesion. She reports no fevers or chills. She does complain of a dry mouth and, of course, pain in her right hip. No cough, shortness of breath or flank pain reported. PHYSICAL EXAMINATION: Reveals a woman who is now afebrile and has been for approximately 48 hours. She is in no acute distress. Pulse in the 90s. Respiratory rate in the teens. Blood pressure 114/75, saturating well on 2 L. Examination of mental status reveals it to be clear. Eyes without conjunctivitis. Oral cavity without thrush or pharyngitis. Lungs relatively clear. No flank pain. LABORATORIES: Include a white count which has normalized. It is now 4900, down from 12,000 a couple days ago. The diff has now completely normalized. Creatinine 1.5, which is little changed from yesterday. Urinalysis, of course, had greater than 50 white cells on the , which was in association with the urine that grew E. coli, which was very sensitive to Cipro. Blood cultures also grew; in this case, was one out of four bottles. The E. coli from urine and blood appear to be the same by the antibiogram and they are both exquisitely sensitive to ciprofloxacin. IMPRESSION: This unfortunate patient has just been recently diagnosed with adenocarcinoma of the lung which spread to multiple areas including the right ischium and the femur. She has just now started getting radiation therapy and surgical treatment is planned for the near future at the [facility] for this pathologic hip injury. She was free of infection when she was admitted but a Garcia catheter was placed because she was in so much pain she could move around to facilitate urination and she subsequently developed a bacteremic E. coli secondary to the urinary catheter which has now been removed. RECOMMENDATIONS: 1. Oral Cipro should be fine for this bacteremic UTI as the organism is very susceptible. 2. I would give the Cipro 500 b.i.d. for 10-14 days. 3. ID will go ahead and sign off at this time as there is little else to discuss in this case, but please do not hesitate to call me if there are additional questions or issues. This case discussed with Dr. Yoo.
--- NOTE | 2017-07-24 16:33 | PCM.PNMED ---
Subjective Date of Service Jul 24, 2017 Subjective Pt to get XRT today. Pt wants to sit up in bed, still limited due to pain. Exam Vital Signs Vital Sign - Last Date Time Temp Pulse Resp B/P Pulse Ox O2 Delivery O2 Flow Rate FiO2 07/24/17 15:54 36.6 89 18 108/68 93 Nasal Cannula 2.00 Intake and Output 07/23/17 07/23/17 07/24/17 Cumulative From/Thru 15:00 23:00 07:00 07/15/17 15:57 - 07/24/17 07:00 Intake Total 1694 ml 1276 ml 53068 ml Output Total 1350 ml 74548 ml Balance 344 ml 1276 ml 3639 ml Intake Oral 800 ml 05450 ml IV Total 894 ml 1276 ml 6355 ml Output Urine Total 1350 ml 98815 ml # Voids 1 # Bowel Movements 1 Exam General: +Visible Pain. Lying in bed. HEENT: NC/AT, EOMI, PERRLA. Neck: No JVD, trachea is central Heart: RRR, no s3/s4 sounds Abd: Soft, Obese, non-tender, non-distended Ext: No edema Psych: Negative for anxiety and agitation Neuro: No focal deficits IVs and Medications Medications Reviewed: Medications were reviewed in detail Lab and Diagnostics Result Diagram: 07/24/1745407/24/17454 X-Rays, CTs and MRIs PROCEDURE: CT CHEST, ABDOMEN AND PELVIS WTIH CONTRAST ([id number]) INDICATIONS: malignancy, need to find primary TECHNIQUE: After the administration of oral and intravenous contrast, 5 mm thick sections acquired from the lung apices to the symphysis. 5 mm coronal and sagittal reformats were performed, with additional 7 mm coronal MIP reformats through the lungs. For radiation dose reduction, the following was used: automated exposure control, adjustment of mA and/or kV according to patient size. IMPRESSION: 1. Subcentimeter nodular radiopacities at the base of the right upper lobe. Differential considerations include infection and neoplasm. 2. 2 foci of masslike consolidation in the left lower lobe and left hilar lobe mass with moderate narrowing of the bronchi. These findings are highly suspicious for primary pulmonary neoplasm with mediastinal priya metastasis. If clinically indicated, the larger pulmonary lesion may be amenable to percutaneous CT-guided biopsy. Alternatively, bronchoscopic biopsy may be possible for the hilar mass. 3. Low density mass within the left atrium which is increased when compared with the study dated 03/08/14. This finding suggests atrial myxoma. Cardiology consult recommended. 4. Bony destruction and pathologic fracture of the right ischium. Similar destructive lesions are present within the right femoral head and proximal right diaphysis. These findings are most consistent with bony metastasis. These findings were discussed with Dr. Gamino at 3:42 PM on 07/16/17. Dictated by: Alison Cruz M.D. on 07/16/2017 at 15:19 Approved by: Alison Cruz M.D. on 07/16/2017 at 15:48 -------- PROCEDURE: X-RAY RIGHT FEMUR, TWO VIEWS ([id number]) INDICATIONS: to check for down stream fracture COMPARISON: None. FINDINGS: Bones: No fractures or dislocations. No suspicious bony lesions. Soft tissues: No suspicious soft tissue calcifications or masses. IMPRESSION: No fracture of the femur is found there is moderately severe to severe medial compartment degenerative knee joint osteoarthritis at the right knee with near [id number] articulation. Dictated by: Redd Burdick M.D. on 07/16/2017 at 19:12 Approved by: Redd Burdick M.D. on 07/16/2017 at 19:13 --- ROCEDURE: MRI BRAIN WITH AND WITHOUT CONTRAST ([id number]) INDICATIONS: Mets IMPRESSION: 1. 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 2. No metastatic brain disease seen. 3. Degree of cerebral atrophy appears normal for age. There are scattered bright flair signal changes that did not enhance, post consistent with small vessel ischemic change, possibility of demyelinating disease not excluded. Dictated by: Gallo Sanchez M.D. on 07/17/2017 at 11:26 Approved by: Gallo Sanchez M.D. on 07/17/2017 at 11:40 PROCEDURE: CT-GUIDED BIOPSY OF THE LUNG OR MEDIASTINUM ([id number]) Sedation analgesia for 30 minutes. INDICATIONS: lung mass biopsy IMPRESSION: Successful CT-guided biopsy of a left lung mass. Dictated by: Alison Cruz M.D. on 07/17/2017 at 11:27 Approved by: Alison Cruz M.D. on 07/17/2017 at 11:28 Assessment & Plan This is a 61-year-old female presenting today after having been seen at the cancer center for an MRA results that showed metastasis in the hip pelvic region. She was in such severe pain that she was sent to the hospital for adequate pain control. New diagnosis stage IV lung adenocarcinoma diagnosed during this hospitalization with skeletal metastases and a pathologic fracture of the right ischium and a critical lesion in the right femur head at risk of fracture. s/p XRT on 07/24 Stage IV lung adenocarcinoma with skeletal metastases and a pathologic fracture of the right ischium and a critical lesion in the right femur head at risk of fracture, POA, active- Was dx during this admission. CT chest abdominopelvic with by mouth and IV contrast ordered, discussed case with : Dr Cruz called with the results, most likely lung primary, atrial myxoma increased in size since 2013, ischial fracture. - Lung adenocarcinoma per early path reports per Dr. Magallanes from CT guided bx. Pain- IV Dilaudid, Fentanyl. -Per Ortho, Dr. Bteo Grande, pt is at very high risk of hip fracture due to tumor burden, should not be bearing weight, [facility]. Dr. Magallanes has talked to Dr. Gerardo Ellis who has reviewed the images and rec prophylactic fixation of the right femur head with theresa. - 07/22- Current plan of transfer her to [facility] was put on hold due to +Blood Cx and Urine Cx, E Coli. Dr. Ellis would like us to treat infection before procedure. Oncology- Dr. Magallanes following, new plan was we started with XRT with Dr. Thompson on 07/24. Will talk again w/ Dr. Ellis from [facility] to determine updated plan for fixation right femur head now that XRT has already been started. - Per Dr. Magallanes, anticipate that the patient can start chemotherapy approximately two weeks after hip surgery. Right hip pain secondary to severe metastasis unknown primary, present on admission ongoing -- Patient was given 0.5 IV Dilaudid at the time of arrival which brought her pain down to 6 out of 10 -- Femur x-ray ordered and showed no concern for R Femur fx. I personally reviewed this x-ray. -- Palliative care is contacted, they have seen the patient. We appreciate the recommendations. Currently patient is on fentanyl patch with breakthrough Dilaudid -- Plan as above. Sepsi due to UTI- Not present on admit, active. Blood Cx and Urine Cx, E Coli. Fever 38.2. Pt leukocysotis has improved /->8.4 - Source tucker catheter. - Antibiotics Ciprofloxacin started 07/22. - Consulted ID, Dr Ramírez, can continue with Cipro po, if clinical worsens consider switch to IV, complete 10 day course which can be extended if needed to accommodate surgery. Acute on chronic kidney injury present on admission, active. -- Chronic kidney disease stage III per her prior records. Scr baseline appears ~ 1.0 -- IV fluids were discontinued on 07/18/17, resumed 07/23 as pt appeared hypovolemic. - Hold Nephrotoxic meds. - Monitor I/O. Atrial Myxoma, POA, active- worsened since 2013 -Myxoma was previously noted on a CT PE protocol performed in February 2014, but it has grown slightly from 2 cm in diameter to now 3 cm in diameter. - Cardiology, Dr. Holman was called. Hypertension chronic presumed stable -- Restarted home medications losartan 07/18/17, held again 07/23. 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 Past stress was negative. Continue med management ASA, BB, Statin. recommend outpatient cardiology consultation and outpatient cardiothoracic surgery followup Chronic sleep apnea, presumed -- Patient has been desaturating with sleep and requiring oxygen 1-2 L High risk medication: Fentanyl patch, by mouth Ativan, IV Dilaudid DVT prophylaxis with enoxaparin 40 mg daily subcutaneous CODE STATUS full code Alternate decision-maker , then the 3 children Dispo- Previous plan of transfer to [facility] was put on hold due Sepsis from UTI. See plan above. Resuscitation Status: CPR: Attempt Resuscitation ( is alternate decision -maker) Collins Yoo MD Jul 24, 2017 16:33
--- NOTE | 2017-07-24 18:19 | CCS NOTE ---
LOCATED WITHIN [facility] [address] [place] [id number] MEDICAL ONCOLOGY OFFICE NOTE PATIENT: LEXY ARANGO : 1955 MR#: [id number] DATE: 07/15/2017 JOB ID: [id number] DATE: 07/24/2017 SUBJECTIVE: The patient is extremely somnolent. Has oxygen on. Her is at bedside. I had spoken with Radiation Oncology yesterday, as well as the hospitalist team and recommended considering palliative large-fraction, single-dose radiation to the right ischium where the bone is disrupted by a lesion and which is the main source of patient's pain. Dr. Thompson was able to kindly expedite this yesterday with a simulation and the patient was able to receive this palliative radiation today already. Her vitals are stable. She does require now more often oxygen. She is afebrile. Is continuing antibiotics to treat her E. coli infection with urinary tract infection and bacteremia, which was pansensitive. ASSESSMENT AND PLAN: A 61-year-old lady with stage IV lung adenocarcinoma in a complicated presentation as discussed before. Now that the transfer for prophylactic fixation of the right femur was postponed because of the bacteremia, and I have discussed with Radiation to deliver a palliative single large fractions to the ischium and spare the femur so that the patient can get some pain relief. This was kindly performed urgently by Dr. Thompson and she received therapy today. The femur fixation can still occur later on. I strongly recommend to reduce the patient's pain medication. She has been on fentanyl patch at 125 mcg. Was barely arousable last night. The 25 mcg patch has been removed but even now she is very sleepy and I am concerned about risk of aspiration. I am hopeful that with the radiation delivered she will require less narcotics, and if she can support herself a little better I would not be opposed with gentle mobilization; for example, sitting up in a chair, etc.
--- NOTE | 2017-07-24 18:34 | PCM.PALLBR ---
Palliative Care Recommendation 61-year-old female with new diagnosis of metastatic adenocarcinoma of the lung, with severe right hip/pelvic pain secondary to metastases. Palliative medicine consulted to assist with management of symptoms. Summary of palliative recommendations: -Symptom management (Pain/other): 1. Pain: Drop fentanyl to 100 mcg Decreased dosing range on lorazepam, hydromorphone. d/c benadryl. Hope that few doses of radiation will start to decrease her pain level. I suspect weight baring would be very painful at this point. may benefit from ROM when pain is controlled 2. Anxiety: pt does not have baseline anxiety diagnosis. She has become anxious due to uncontrolled pain. decrease in lorazepam dosing. Not on diazepam -DPOA/Advanced Directives/POLST: Currently FULL CODE. Palliative Care Team does not plan to engage pt in any advanced planning topics at this time, as pt has just begun oncology workup this admission. -Family/emotional support: Good -Spiritual support: not explored today. Patient Goals: 1 to get out of bed--suspect that will be another week. 2. get surg done to stabilize for rad tx. Additional Medical Diagnoses with primary management by Hospitalist team include : 1. Right hip pain secondary to severe metastasis unknown primary, present on admission ongoing workup. 2. Acute on chronic kidney injury present on admission active-- Chronic kidney disease stage III per her prior records 3. Diabetes mellitus type II chronic active 4. Hypertension chronic presumed stable 5. Hyperlipidemia chronic presumed stable 6. CAD status post bypass chronic stable-- Continue aspirin, Crestor Problems: Resuscitation Status Resuscitation Status: CPR: Attempt Resuscitation ( is alternate decision -maker) POLST Updates/Changes Previous POLST?: No Total time 35 minutes; >50% face to face with patient and/or family, providing counselling regarding plans and recommendations, and in care coordination with his/her medical teams. Majority spent in care coord and med management I also spent an additional [ ] minutes counseling for advanced care planning with the patient/the patients family/the surrogate decision maker. copies to: Alin Mcguire MD Palliative Brief Note Date of Service Jul 24, 2017 . 61 yo female seen for review of pain management. at bedside. Oversedation in the evening and fentanyl 25 mcg patch removed--still has 100 mcg patch. Receiving addnal hydromorphone and lorazepam so difficult to assess if fentanyl is cause. acknowledges if she is awake she hurts. Patient is arousable and frustrated at the need to be in bed through another week c/o dry mouth and drinks water without difficulty Anorexia constipation also noted O: obese lungs decreased BS COR-RR 1+ pitting edema-L>R Willow Joel MD Jul 24, 2017 18:34 O: obese lungs decreased BS COR-RR 1+ pitting edema-L>R Willow Joel MD Jul 24, 2017 18:34
--- NOTE | 2017-07-24 19:54 | CCR TX ---
[facility] [address] [address] RADIATION ONCOLOGY TREATMENT NOTE PATIENT: LEXY ARANGO : 1955 MR#: [id number] DATE: 07/15/2017 JOB ID: [id number] DATE: 07/24/2017 Dear Alin, The patient completed a course of palliative single fraction irradiation to the right ischium today in our facility as detailed below. Irradiation treatment started on July 24, 2017, and concluded on July 24, 2017. The area of the right ischium was treated via AP PA portals and received 800 cGy daily to a total dose of 800 cGy in one treatment over one elapsed day. At conclusion of treatment, patient tolerated the treatment well. She has now returned to the hospital. It is our understanding that at some point after she recovers from her sepsis, a pin will be inserted in the right femur subsequent to which will refer her back for consideration of further radiation to the right femur as well as the left hip if contextually appropriate. Thank you for including us in her care.
--- NOTE | 2017-07-24 19:55 | CCR SIM ---
[facility] [address] [address] RADIATION ONCOLOGY SIMULATION NOTE PATIENT: LEXY ARANGO : 1955 MR#: [id number] DATE: 07/15/2017 JOB ID: [id number] DATE: 07/24/2017 SIMULATION NOTE: The patient was simulated today on my order to ensure accurate radiation delivery to her right ischium for treatment of severe pain secondary to metastatic disease causing path fracture in the right ischium region. The patient was brought to the [employer] linear accelerator and placed supine in custom designed Vac-Racheal immobilization system. An IGRT procedure was performed whose images were restructured and reviewed by myself in sagittal, axial, and coronal perspective, and approved. Subsequently, two portal films were taken, labeled one and two, each containing a customized MLC device in place. These were independently reviewed and approved by myself for block shape and positioning and approved independently. All verification simulation settings were reviewed and approved by myself. Following completion of successful verification simulation procedure, the patient had my permission to initiate treatment to these portal.
[2017-07-24 20:30] VITALS: BP 148/83; PULSE 105; RESP 18; O2SAT 94
[2017-07-24] MEDS: MetoCLOpramide 5 mg/mL 2 mL Inj IVPUSH PRN (21:31)
[2017-07-25] MEDS: HYDROmorphone 1 mg/mL Inj IVPUSH PRN ×6 (00:15→22:17)
[2017-07-25] MEDS: LORazepam 1 mg Tablet PO PRN ×3 (03:59→22:16)
[2017-07-25] MEDS: 0.9% Sodium Chloride 1,000 ML IV SCH ×3 (03:59→12:07)
[2017-07-25] MEDS: Insulin LISPRO 300 Unit/3 mL Inj SUBQ SCH ×4 (08:00→22:00)
[2017-07-25] MEDS: Pantoprazole 40 mg ER24 Tablet PO SCH (08:26)
[2017-07-25] MEDS: Albuterol 2.5 mg/3 mL Inhalation Solution NEB PRN (10:05)
[2017-07-25 10:06] VITALS: PULSE 94; RESP 20; O2SAT 92
[2017-07-25 12:01] VITALS: BP 111/67; PULSE 85; RESP 16; O2SAT 95
--- NOTE | 2017-07-25 14:02 | PCM.PNMED ---
Subjective Date of Service Jul 25, 2017 Subjective s/p XRT yesterday. Pt more alert today. Exam Vital Signs Vital Sign - Last Date Time Temp Pulse Resp B/P Pulse Ox O2 Delivery O2 Flow Rate FiO2 07/25/17 12:01 36.6 85 16 111/67 95 Nasal Cannula 2.00 Intake and Output 07/24/17 07/24/17 07/25/17 Cumulative From/Thru 15:00 23:00 07:00 07/15/17 15:57 - 07/25/17 07:00 Intake Total 537 ml 1714 ml 1272 ml 40162 ml Output Total 1100 ml 1250 ml 06331 ml Balance -563 ml 464 ml 1272 ml 4812 ml Intake Oral 537 ml 800 ml 14365 ml IV Total 914 ml 1272 ml 8541 ml Output Urine Total 1100 ml 1250 ml 39524 ml # Voids 1 # Bowel Movements 0 1 Exam General: +Visible Pain. Lying in bed. HEENT: NC/AT, EOMI, PERRLA. Neck: No JVD, trachea is central Heart: RRR, no s3/s4 sounds Abd: Soft, Obese, non-tender, non-distended Ext: No edema Psych: Negative for anxiety and agitation Neuro: No focal deficits IVs and Medications Medications Reviewed: Medications were reviewed in detail Lab and Diagnostics Result Diagram: 07/24/1745407/24/17454 X-Rays, CTs and MRIs PROCEDURE: CT CHEST, ABDOMEN AND PELVIS [facility] CONTRAST ([id number]) INDICATIONS: malignancy, need to find primary TECHNIQUE: After the administration of oral and intravenous contrast, 5 mm thick sections acquired from the lung apices to the symphysis. 5 mm coronal and sagittal reformats were performed, with additional 7 mm coronal MIP reformats through the lungs. For radiation dose reduction, the following was used: automated exposure control, adjustment of mA and/or kV according to patient size. IMPRESSION: 1. Subcentimeter nodular radiopacities at the base of the right upper lobe. Differential considerations include infection and neoplasm. 2. 2 foci of masslike consolidation in the left lower lobe and left hilar lobe mass with moderate narrowing of the bronchi. These findings are highly suspicious for primary pulmonary neoplasm with mediastinal priya metastasis. If clinically indicated, the larger pulmonary lesion may be amenable to percutaneous CT-guided biopsy. Alternatively, bronchoscopic biopsy may be possible for the hilar mass. 3. Low density mass within the left atrium which is increased when compared with the study dated 03/08/14. This finding suggests atrial myxoma. Cardiology consult recommended. 4. Bony destruction and pathologic fracture of the right ischium. Similar destructive lesions are present within the right femoral head and proximal right diaphysis. These findings are most consistent with bony metastasis. These findings were discussed with Dr. Gamino at 3:42 PM on 07/16/17. Dictated by: Alison Cruz M.D. on 07/16/2017 at 15:19 Approved by: Alison Cruz M.D. on 07/16/2017 at 15:48 -------- PROCEDURE: X-RAY RIGHT FEMUR, TWO VIEWS ([id number]) INDICATIONS: to check for down stream fracture COMPARISON: None. FINDINGS: Bones: No fractures or dislocations. No suspicious bony lesions. Soft tissues: No suspicious soft tissue calcifications or masses. IMPRESSION: No fracture of the femur is found there is moderately severe to severe medial compartment degenerative knee joint osteoarthritis at the right knee with near gjkj-cf-[id number] articulation. Dictated by: Redd Burdick M.D. on 07/16/2017 at 19:12 Approved by: Redd Burdick M.D. on 07/16/2017 at 19:13 --- ROCEDURE: MRI BRAIN WITH AND WITHOUT CONTRAST ([id number]) INDICATIONS: Mets IMPRESSION: 1. 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 2. No metastatic brain disease seen. 3. Degree of cerebral atrophy appears normal for age. There are scattered bright flair signal changes that did not enhance, post consistent with small vessel ischemic change, possibility of demyelinating disease not excluded. Dictated by: Gallo Sanchez M.D. on 07/17/2017 at 11:26 Approved by: Gallo Sanchez M.D. on 07/17/2017 at 11:40 PROCEDURE: CT-GUIDED BIOPSY OF THE LUNG OR MEDIASTINUM ([id number]) Sedation analgesia for 30 minutes. INDICATIONS: lung mass biopsy IMPRESSION: Successful CT-guided biopsy of a left lung mass. Dictated by: Alison Cruz M.D. on 07/17/2017 at 11:27 Approved by: Alison Cruz M.D. on 07/17/2017 at 11:28 Assessment & Plan This is a 61-year-old female presenting today after having been seen at the cancer center for an MRA results that showed metastasis in the hip pelvic region. She was in such severe pain that she was sent to the hospital for adequate pain control. New diagnosis stage IV lung adenocarcinoma diagnosed during this hospitalization with skeletal metastases and a pathologic fracture of the right ischium and a critical lesion in the right femur head at risk of fracture. s/p XRT on 07/24 Stage IV lung adenocarcinoma with skeletal metastases and a pathologic fracture of the right ischium and a critical lesion in the right femur head at risk of fracture, POA, active- Was dx during this admission. CT chest abdominopelvic with by mouth and IV contrast ordered, discussed case with : Dr Cruz called with the results, most likely lung primary, atrial myxoma increased in size since 2013, ischial fracture. - Lung adenocarcinoma per early path reports per Dr. Magallanes from CT guided bx. Pain- IV Dilaudid, Fentanyl. -Per Ortho, Dr. Beto Grande, pt is at very high risk of hip fracture due to tumor burden, should not be bearing weight, [facility]. Dr. Magallanes has talked to Dr. Gerardo Ellis who has reviewed the images and rec prophylactic fixation of the right femur head with theresa. - 07/22- Current plan of transfer her to [facility] was put on hold due to +Blood Cx and Urine Cx, E Coli. Dr. Ellis would like us to treat infection before procedure. Oncology- Dr. Magallanes following, new plan was we started with XRT with Dr. Thompson on 07/24. Will talk again w/ Dr. Ellis from [facility] to determine updated plan for fixation right femur head now that XRT has already been started. - Per Dr. Magallanes, anticipate that the patient can start chemotherapy approximately two weeks after hip surgery. Right hip pain secondary to severe metastasis unknown primary, present on admission ongoing -- Patient was given 0.5 IV Dilaudid at the time of arrival which brought her pain down to 6 out of 10 -- Femur x-ray ordered and showed no concern for R Femur fx. I personally reviewed this x-ray. -- Palliative care is contacted, they have seen the patient. We appreciate the recommendations. Currently patient is on fentanyl patch with breakthrough Dilaudid -- Plan as above. Sepsi due to UTI- Not present on admit, active. Blood Cx and Urine Cx, E Coli. Fever 38.2. Pt leukocysotis has improved /->8.4 - Source tucker catheter. - Antibiotics Ciprofloxacin started 07/22. - Consulted ID, Dr Ramírez, can continue with Cipro po, if clinical worsens consider switch to IV, complete 10 day course which can be extended if needed to accommodate surgery. Acute on chronic kidney injury present on admission, active. -- Chronic kidney disease stage III per her prior records. Scr baseline appears ~ 1.0. 1.5 may be pt's new baseline Scr. -- IV fluids were discontinued on 07/18/17, resumed 07/23 as pt appeared hypovolemic. - Hold Nephrotoxic meds. - Consider stopping IVF if volume overloaded. - Monitor I/O. - CXR in AM. Atrial Myxoma, POA, active- worsened since 2013 -Myxoma was previously noted on a CT PE protocol performed in February 2014, but it has grown slightly from 2 cm in diameter to now 3 cm in diameter. - Cardiology, Dr. Holman was called. Hypertension chronic presumed stable -- Restarted home medications losartan 07/18/17, held again 07/23. 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 Past stress was negative. Continue med management ASA, BB, Statin. recommend outpatient cardiology consultation and outpatient cardiothoracic surgery followup Chronic sleep apnea, presumed -- Patient has been desaturating with sleep and requiring oxygen 1-2 L High risk medication: Fentanyl patch, by mouth Ativan, IV Dilaudid DVT prophylaxis with enoxaparin 40 mg daily subcutaneous CODE STATUS full code Alternate decision-maker , then the 3 children Dispo- Previous plan of transfer to [facility] was put on hold due Sepsis from UTI. See plan above. Resuscitation Status: CPR: Attempt Resuscitation ( is alternate decision -maker) Collins Yoo MD Jul 25, 2017 14:02
[2017-07-25 20:44] VITALS: BP 128/70; PULSE 74; RESP 18; O2SAT 96
[2017-07-26] MEDS: HYDROmorphone 1 mg/mL Inj IVPUSH PRN ×8 (00:49→23:28)
[2017-07-26] MEDS: LORazepam 1 mg Tablet PO PRN ×2 (04:20→20:04)
[2017-07-26] MEDS: 0.9% Sodium Chloride 1,000 ML IV SCH ×3 (04:30→20:05)
[2017-07-26 05:58] VITALS: BP 131/71; PULSE 79; RESP 16; O2SAT 98
[2017-07-26] MEDS: Pantoprazole 40 mg ER24 Tablet PO SCH (06:42)
[2017-07-26 06:50] LABS: BASOPHILS % (AUTO) 0.3 % (0-3); EOSINOPHILS % (AUTO) 4.9 % (0-5); MONOCYTES % (AUTO) 9.1 % (4-12); Mean Corpuscular Hemoglobin 28.6 pg (27.0-35.0); Mean Corpuscular Volume 89.3 fL (81-100); NEUTROPHILS % (AUTO) 69.7 % (40-74); Platelet Count 170 bil/L (150-400)
[2017-07-26] MEDS: Insulin LISPRO 300 Unit/3 mL Inj SUBQ SCH ×4 (07:20→21:25)
--- NOTE | 2017-07-26 11:29 | PCM.PNMED ---
Subjective Date of Service Jul 26, 2017 Subjective Pt c/o of pain when moved. Pt frustrated she is stuck in bed. Denies fever/ chills. Exam Vital Signs Vital Sign - Last Date Time Temp Pulse Resp B/P Pulse Ox O2 Delivery O2 Flow Rate FiO2 07/26/17 07:28 Supplement Oxygen 07/26/17 05:58 36.9 79 16 131/71 98 2.00 Intake and Output 07/25/17 07/25/17 07/26/17 Cumulative From/Thru 15:00 23:00 07:00 07/15/17 15:57 - 07/26/17 06:38 Intake Total 636 ml 1387 ml 2288 ml 45747 ml Output Total 1175 ml 1600 ml 1900 ml 74564 ml Balance -539 ml -213 ml 388 ml 4448 ml Intake Oral 636 ml 325 ml 650 ml 42369 ml IV Total 1062 ml 1638 ml 55778 ml Output Urine Total 1175 ml 1600 ml 1900 ml 82799 ml # Voids 1 # Bowel Movements 0 0 0 1 Exam General: +Visible Pain. Lying in bed. HEENT: NC/AT, EOMI, PERRLA. Neck: No JVD, trachea is central Heart: RRR, no s3/s4 sounds Abd: Soft, Obese, non-tender, non-distended Ext: No edema Psych: Negative for anxiety and agitation Neuro: No focal deficits IVs and Medications Medications Reviewed: Medications were reviewed in detail Lab and Diagnostics Result Diagram: 07/26/17 0552 07/26/17 0552 X-Rays, CTs and MRIs PROCEDURE: CT CHEST, ABDOMEN AND PELVIS [facility] CONTRAST ([id number]) INDICATIONS: malignancy, need to find primary TECHNIQUE: After the administration of oral and intravenous contrast, 5 mm thick sections acquired from the lung apices to the symphysis. 5 mm coronal and sagittal reformats were performed, with additional 7 mm coronal MIP reformats through the lungs. For radiation dose reduction, the following was used: automated exposure control, adjustment of mA and/or kV according to patient size. IMPRESSION: 1. Subcentimeter nodular radiopacities at the base of the right upper lobe. Differential considerations include infection and neoplasm. 2. 2 foci of masslike consolidation in the left lower lobe and left hilar lobe mass with moderate narrowing of the bronchi. These findings are highly suspicious for primary pulmonary neoplasm with mediastinal priya metastasis. If clinically indicated, the larger pulmonary lesion may be amenable to percutaneous CT-guided biopsy. Alternatively, bronchoscopic biopsy may be possible for the hilar mass. 3. Low density mass within the left atrium which is increased when compared with the study dated 03/08/14. This finding suggests atrial myxoma. Cardiology consult recommended. 4. Bony destruction and pathologic fracture of the right ischium. Similar destructive lesions are present within the right femoral head and proximal right diaphysis. These findings are most consistent with bony metastasis. These findings were discussed with Dr. Gamino at 3:42 PM on 07/16/17. Dictated by: Alison Cruz M.D. on 07/16/2017 at 15:19 Approved by: Alison Cruz M.D. on 07/16/2017 at 15:48 -------- PROCEDURE: X-RAY RIGHT FEMUR, TWO VIEWS ([id number]) INDICATIONS: to check for down stream fracture COMPARISON: None. FINDINGS: Bones: No fractures or dislocations. No suspicious bony lesions. Soft tissues: No suspicious soft tissue calcifications or masses. IMPRESSION: No fracture of the femur is found there is moderately severe to severe medial compartment degenerative knee joint osteoarthritis at the right knee with near nihe-vl-[id number] articulation. Dictated by: eRdd Burdick M.D. on 07/16/2017 at 19:12 Approved by: Redd Burdick M.D. on 07/16/2017 at 19:13 --- ROCEDURE: MRI BRAIN WITH AND WITHOUT CONTRAST ([id number]) INDICATIONS: Mets IMPRESSION: 1. 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 2. No metastatic brain disease seen. 3. Degree of cerebral atrophy appears normal for age. There are scattered bright flair signal changes that did not enhance, post consistent with small vessel ischemic change, possibility of demyelinating disease not excluded. Dictated by: Gallo Sanchez M.D. on 07/17/2017 at 11:26 Approved by: Gallo Sanchez M.D. on 07/17/2017 at 11:40 PROCEDURE: CT-GUIDED BIOPSY OF THE LUNG OR MEDIASTINUM ([id number]) Sedation analgesia for 30 minutes. INDICATIONS: lung mass biopsy IMPRESSION: Successful CT-guided biopsy of a left lung mass. Dictated by: Alison Cruz M.D. on 07/17/2017 at 11:27 Approved by: Alison Cruz M.D. on 07/17/2017 at 11:28 Assessment & Plan This is a 61-year-old female presenting today after having been seen at the cancer center for an MRA results that showed metastasis in the hip pelvic region. She was in such severe pain that she was sent to the hospital for adequate pain control. New diagnosis stage IV lung adenocarcinoma diagnosed during this hospitalization with skeletal metastases and a pathologic fracture of the right ischium and a critical lesion in the right femur head at risk of fracture. s/p XRT on 07/24 Stage IV lung adenocarcinoma with skeletal metastases and a pathologic fracture of the right ischium and a critical lesion in the right femur head at risk of fracture, POA, active- Was dx during this admission. CT chest abdominopelvic with by mouth and IV contrast ordered, discussed case with : Dr Cruz called with the results, most likely lung primary, atrial myxoma increased in size since 2013, ischial fracture. - Lung adenocarcinoma per early path reports per Dr. Magallanes from CT guided bx. Pain- IV Dilaudid, Fentanyl. -Per Ortho, Dr. Beto Grande, pt is at very high risk of hip fracture due to tumor burden, should not be bearing weight, [facility]. Dr. Magallanes has talked to Dr. Gerardo Ellis who has reviewed the images and rec prophylactic fixation of the right femur head with theresa. - 07/22- Current plan of transfer her to [facility] was put on hold due to +Blood Cx and Urine Cx, E Coli. Dr. Ellis would like us to treat infection before procedure. Oncology- Dr. Magallanes following, new plan was we started with XRT with Dr. Thompson on 07/24. Will talk again w/ Dr. Ellis from [facility] to determine updated plan for fixation right femur head now that XRT given. Will call [facility] to reengage about transfer. - Per Dr. Magallanes, anticipate that the patient can start chemotherapy approximately two weeks after hip surgery. Right hip pain secondary to severe metastasis unknown primary, present on admission ongoing -- Patient was given 0.5 IV Dilaudid at the time of arrival which brought her pain down to 6 out of 10 -- Femur x-ray ordered and showed no concern for R Femur fx. I personally reviewed this x-ray. -- Palliative care is contacted, they have seen the patient. We appreciate the recommendations. Currently patient is on fentanyl patch with breakthrough Dilaudid -- Plan as above. Sepsi due to UTI- Not present on admit, active. Blood Cx and Urine Cx, E Coli. Fever 38.2. Pt leukocysotis has improved 10/25->8.4 - Source tucker catheter. - Antibiotics Ciprofloxacin started 07/22. - Consulted ID, Dr Ramírez, can continue with Cipro po, if clinical worsens consider switch to IV, complete 10 day course which can be extended if needed to accommodate surgery. Acute on chronic kidney injury present on admission, active. -- Chronic kidney disease stage III per her prior records. Scr baseline appears ~ 1.0. Pt currently back to baseline. -- IV fluids were discontinued on 07/18/17, resumed 07/23 as pt appeared hypovolemic. - Hold Nephrotoxic meds. - Consider stopping IVF if volume overloaded. - Monitor I/O. Encourage PO intake, supplement w/ IVF if falls behind to avoid further BRENDA. Hypertension chronic presumed stable -- Restarted home medications losartan 07/18/17, held again 07/23. Diabetes mellitus type II chronic active -- Hold home medication metformin by mouth -- Low scale sliding scale -- Diabetic diet Hyperlipidemia chronic presumed stable -- We will continue home medication Anxiety chronic presumed stable -- Ativan 0.5 3 times a day when necessary by mouth for palliative care CAD status post bypass chronic stable -- Continue aspirin, Crestor Atrial Myxoma, POA, active- worsened since 2013 -Myxoma was previously noted on a CT PE protocol performed in February 2014, but it has grown slightly from 2 cm in diameter to now 3 cm in diameter. 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 Past stress was negative. Continue med management ASA, BB, Statin. recommend outpatient cardiology consultation and outpatient cardiothoracic surgery followup Chronic sleep apnea, presumed -- Patient has been desaturating with sleep and requiring oxygen 1-2 L High risk medication: Fentanyl patch, by mouth Ativan, IV Dilaudid DVT prophylaxis with enoxaparin 40 mg daily subcutaneous CODE STATUS full code Alternate decision-maker , then the 3 children Dispo- Previous plan of transfer to [facility] was put on hold due Sepsis from UTI. See plan above. Resuscitation Status: CPR: Attempt Resuscitation ( is alternate decision -maker) Collins Yoo MD Jul 26, 2017 11:29
--- NOTE | 2017-07-26 11:49 | DRSVH ---
PROCEDURE: X-RAY CHEST ONE VIEW, PORTABLE ([id number]) INDICATIONS: shortness of breath TECHNIQUE: One view of the chest was acquired. COMPARISON: [facility], CR, XR CHEST 1VW (PORTABLE), 07/21/2017, 18:13. FINDINGS: Surgical changes and devices: Postsurgical changes are redemonstrated in the mediastinum. Lungs and pleura: No pleural effusions or pneumothorax. There is mild pulmonary edema which appears similar to the prior study. Mediastinum: Mediastinal contours appear unchanged. Heart size is normal. Bones and chest wall: No suspicious bony lesions. Overlying soft tissues appear unremarkable. IMPRESSION: 1. Persistent mild pulmonary edema. Dictated by: Jesus Maza M.D. on 07/26/2017 at 11:47 Approved by: Jesus aMza M.D. on 07/26/2017 at 11:47
[2017-07-26 12:23] VITALS: BP 123/77; PULSE 84; RESP 16; O2SAT 94
[2017-07-26 14:01] LABS: APPEARANCE,URINE CLEAR (CLEAR,HAZY); COLOR,URINE YELLOW (YELLOW)
[2017-07-26 14:02] LABS: OCCULT BLOOD,URINE SMALL (NEGATIVE); UROBILINOGEN,URINE NORMAL (NORMAL)
[2017-07-26 21:00] VITALS: BP 136/79; PULSE 88; RESP 22; O2SAT 93
[2017-07-27] MEDS: HYDROmorphone 1 mg/mL Inj IVPUSH PRN ×3 (02:01→14:34)
[2017-07-27] MEDS: LORazepam 1 mg Tablet PO PRN ×5 (02:05→21:37)
[2017-07-27 05:15] VITALS: BP 136/83; PULSE 91; RESP 20; O2SAT 92
[2017-07-27] MEDS: Pantoprazole 40 mg ER24 Tablet PO SCH (05:37)
[2017-07-27] MEDS: Insulin LISPRO 300 Unit/3 mL Inj SUBQ SCH ×4 (08:00→21:54)
[2017-07-27 09:57] LABS: BASOPHILS % (AUTO) 0.4 % (0-3); EOSINOPHILS % (AUTO) 4.9 % (0-5); MONOCYTES % (AUTO) 6.8 % (4-12); Mean Corpuscular Hemoglobin 28.4 pg (27.0-35.0); Mean Corpuscular Volume 89.2 fL (81-100); NEUTROPHILS % (AUTO) 69.8 % (40-74); Platelet Count 205 bil/L (150-400)
[2017-07-27 10:54] VITALS: PULSE 84; RESP 16; O2SAT 98
--- NOTE | 2017-07-27 12:16 | PCM.PNMED ---
Subjective Date of Service Jul 27, 2017 Subjective No overnight events. Still pain w/ movement and bedpan that is controlled when given IV Dilaudid. Exam Vital Signs Vital Sign - Last Date Time Temp Pulse Resp B/P Pulse Ox O2 Delivery O2 Flow Rate FiO2 07/27/17 10:54 84 16 98 Room Air 07/27/17 05:15 36.5 136/83 07/26/17 05:58 2.00 Intake and Output 07/26/17 07/26/17 07/27/17 Cumulative From/Thru 15:00 23:00 07:00 07/15/17 15:57 - 07/27/17 06:53 Intake Total 1552 ml 1567 ml 94986 ml Output Total 1800 ml 1600 ml 88909 ml Balance -248 ml -33 ml 4167 ml Intake Oral 337 ml 937 ml 75513 ml IV Total 1215 ml 630 ml 83917 ml Output Urine Total 1800 ml 1600 ml 78061 ml # Voids 1 # Bowel Movements 2 0 3 Exam General: NAD, AOX3. HEENT: NC/AT, EOMI, PERRLA. Neck: No JVD, trachea is central Heart: RRR, no s3/s4 sounds Abd: Soft, Obese, non-tender, non-distended Ext: No edema Psych: Negative for anxiety and agitation Neuro: No focal deficits IVs and Medications Medications Reviewed: Medications were reviewed in detail Lab and Diagnostics Result Diagram: 07/27/17 0807/27/17 0855 X-Rays, CTs and MRIs PROCEDURE: CT CHEST, ABDOMEN AND PELVIS WTIH CONTRAST ([id number]) INDICATIONS: malignancy, need to find primary TECHNIQUE: After the administration of oral and intravenous contrast, 5 mm thick sections acquired from the lung apices to the symphysis. 5 mm coronal and sagittal reformats were performed, with additional 7 mm coronal MIP reformats through the lungs. For radiation dose reduction, the following was used: automated exposure control, adjustment of mA and/or kV according to patient size. IMPRESSION: 1. Subcentimeter nodular radiopacities at the base of the right upper lobe. Differential considerations include infection and neoplasm. 2. 2 foci of masslike consolidation in the left lower lobe and left hilar lobe mass with moderate narrowing of the bronchi. These findings are highly suspicious for primary pulmonary neoplasm with mediastinal priya metastasis. If clinically indicated, the larger pulmonary lesion may be amenable to percutaneous CT-guided biopsy. Alternatively, bronchoscopic biopsy may be possible for the hilar mass. 3. Low density mass within the left atrium which is increased when compared with the study dated 03/08/14. This finding suggests atrial myxoma. Cardiology consult recommended. 4. Bony destruction and pathologic fracture of the right ischium. Similar destructive lesions are present within the right femoral head and proximal right diaphysis. These findings are most consistent with bony metastasis. These findings were discussed with Dr. Gamino at 3:42 PM on 07/16/17. Dictated by: Alison Cruz M.D. on 07/16/2017 at 15:19 Approved by: Alison Cruz M.D. on 07/16/2017 at 15:48 -------- PROCEDURE: X-RAY RIGHT FEMUR, TWO VIEWS ([id number]) INDICATIONS: to check for down stream fracture COMPARISON: None. FINDINGS: Bones: No fractures or dislocations. No suspicious bony lesions. Soft tissues: No suspicious soft tissue calcifications or masses. IMPRESSION: No fracture of the femur is found there is moderately severe to severe medial compartment degenerative knee joint osteoarthritis at the right knee with near [id number] articulation. Dictated by: Redd Burdick M.D. on 07/16/2017 at 19:12 Approved by: Redd Burdick M.D. on 07/16/2017 at 19:13 --- ROCEDURE: MRI BRAIN WITH AND WITHOUT CONTRAST ([id number]) INDICATIONS: Mets IMPRESSION: 1. 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 2. No metastatic brain disease seen. 3. Degree of cerebral atrophy appears normal for age. There are scattered bright flair signal changes that did not enhance, post consistent with small vessel ischemic change, possibility of demyelinating disease not excluded. Dictated by: Gallo Sanchez M.D. on 07/17/2017 at 11:26 Approved by: Gallo Sanchez M.D. on 07/17/2017 at 11:40 PROCEDURE: CT-GUIDED BIOPSY OF THE LUNG OR MEDIASTINUM ([id number]) Sedation analgesia for 30 minutes. INDICATIONS: lung mass biopsy IMPRESSION: Successful CT-guided biopsy of a left lung mass. Dictated by: Alison Cruz M.D. on 07/17/2017 at 11:27 Approved by: Alison Cruz M.D. on 07/17/2017 at 11:28 Assessment & Plan This is a 61-year-old female presenting today after having been seen at the cancer center for an MRA results that showed metastasis in the hip pelvic region. She was in such severe pain that she was sent to the hospital for adequate pain control. New diagnosis stage IV lung adenocarcinoma diagnosed during this hospitalization with skeletal metastases and a pathologic fracture of the right ischium and a critical lesion in the right femur head at risk of fracture. s/p XRT on 07/24 Stage IV lung adenocarcinoma with skeletal metastases and a pathologic fracture of the right ischium and a critical lesion in the right femur head at risk of fracture, POA, active- Was dx during this admission. CT chest abdominopelvic with by mouth and IV contrast ordered, discussed case with : Dr Cruz called with the results, most likely lung primary, atrial myxoma increased in size since 2013, ischial fracture. - Lung adenocarcinoma per early path reports per Dr. Magallanes from CT guided bx. Pain- IV Dilaudid, Fentanyl. -Per Ortho, Dr. Beto Grande, pt is at very high risk of hip fracture due to tumor burden, should not be bearing weight, [facility]. Dr. Magallanes has talked to Dr. Gerardo Ellis who has reviewed the images and rec prophylactic fixation of the right femur head with theresa. - 07/22- Current plan of transfer her to [facility] was put on hold due to +Blood Cx and Urine Cx, E Coli. Dr. Ellis would like us to treat infection before procedure. Oncology- Dr. Magallanes following, new plan was we started with XRT with Dr. Thompson on 07/24. Will talk again w/ Dr. Ellis from [facility] to determine updated plan for fixation right femur head now that XRT given. Will call [facility] to reengage about transfer. - Per Dr. Magallanes, anticipate that the patient can start chemotherapy approximately two weeks after hip surgery. - 07/27- Left message with to re-intiate transfer for above operation with Dr. Ellis. Right hip pain secondary to severe metastasis unknown primary, present on admission ongoing -- Patient was given 0.5 IV Dilaudid at the time of arrival which brought her pain down to 6 out of 10 -- Femur x-ray ordered and showed no concern for R Femur fx. I personally reviewed this x-ray. -- Palliative care is contacted, they have seen the patient. We appreciate the recommendations. Currently patient is on fentanyl patch with breakthrough Dilaudid -- Plan as above. Sepsi due to UTI- Not present on admit, active. Blood Cx and Urine Cx, E Coli. Fever 38.2. Pt leukocysotis has improved 10/25->8.4 - Source tucker catheter. - Antibiotics Ciprofloxacin started 07/22. - Consulted ID, Dr Ramírez, can continue with Cipro po, if clinical worsens consider switch to IV, complete 10 day course which can be extended if needed to accommodate surgery. Acute on chronic kidney injury present on admission, active. -- Chronic kidney disease stage III per her prior records. Scr baseline appears ~ 1.0. Pt currently back to baseline. -- IV fluids were discontinued on 07/18/17, resumed 07/23 as pt appeared hypovolemic. - Hold Nephrotoxic meds. - Consider stopping IVF if volume overloaded. - Monitor I/O. Encourage PO intake, supplement w/ IVF if falls behind to avoid further BRENDA. Hypertension chronic presumed stable -- Restarted home medications losartan 07/18/17, held again 07/23. Diabetes mellitus type II chronic active -- Hold home medication metformin by mouth -- Low scale sliding scale -- Diabetic diet Hyperlipidemia chronic presumed stable -- We will continue home medication Anxiety chronic presumed stable -- Ativan 0.5 3 times a day when necessary by mouth for palliative care CAD status post bypass chronic stable -- Continue aspirin, Crestor Atrial Myxoma, POA, active- worsened since 2013 -Myxoma was previously noted on a CT PE protocol performed in February 2014, but it has grown slightly from 2 cm in diameter to now 3 cm in diameter. 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 Past stress was negative. Continue med management ASA, BB, Statin. recommend outpatient cardiology consultation and outpatient cardiothoracic surgery followup Chronic sleep apnea, presumed -- Patient has been desaturating with sleep and requiring oxygen 1-2 L High risk medication: Fentanyl patch, by mouth Ativan, IV Dilaudid DVT prophylaxis with enoxaparin 40 mg daily subcutaneous CODE STATUS full code Alternate decision-maker , then the 3 children Dispo- Previous plan of transfer to [facility] was put on hold due Sepsis from UTI. See plan above. VTE Mechanical Devices: Intermittant Pneumatic CD Resuscitation Status: CPR: Attempt Resuscitation ( is alternate decision -maker) Collins Yoo MD Jul 27, 2017 12:16
[2017-07-27 12:35] VITALS: BP 124/73; PULSE 82; RESP 19; O2SAT 94
[2017-07-27] MEDS ORDERED: Potassium Chloride 20 mEq SR Tablet PO ONE (18:10)
[2017-07-27 19:35] VITALS: BP 134/79; PULSE 83; RESP 17; O2SAT 96
[2017-07-28] MEDS: LORazepam 1 mg Tablet PO PRN ×3 (04:31→17:37)
[2017-07-28 04:40] VITALS: BP 136/77; PULSE 88; RESP 18; O2SAT 92
[2017-07-28] MEDS: Pantoprazole 40 mg ER24 Tablet PO SCH (06:02)
[2017-07-28] MEDS: Insulin LISPRO 300 Unit/3 mL Inj SUBQ SCH ×2 (07:53→12:00)
[2017-07-28 08:10] VITALS: PULSE 85; RESP 16; O2SAT 94
[2017-07-28 08:17] VITALS: BP 122/71; PULSE 87; RESP 17; O2SAT 96
[2017-07-28] MEDS ORDERED: Morphine ER 15 mg (MS Contin) Tablet PO SCH (08:30)
--- NOTE | 2017-07-28 09:25 | PCM.PALLBR ---
Palliative Care Recommendation 61-year-old female with new diagnosis of metastatic adenocarcinoma of the lung, with severe right hip/pelvic pain secondary to metastases. Palliative medicine consulted to assist with management of symptoms. Summary of palliative recommendations: -Symptom management (Pain/other): 1. Pain: Morphine ER 15 mg po added by Dr. Yoo Reduce fentanyl to 75 mcg Continue breakthrough hydromorphone oral/IV (but spoke with her nurse and stressed the importance of trying to manage pain with oral agents as much as possible) Patient has received frontloaded radiation which Dr. Magallanes hopes will have a positive impact on her pain within days. Physical therapy to instruct in touchdown weight bearing (okayed by orthopedics). 2. Anxiety: Continue lorazepam. Hopefully getting out of bed will decrease her anxiety. -DPOA/Advanced Directives/POLST: Currently FULL CODE. Palliative Care Team does not plan to engage pt in any advanced planning topics at this time, as pt has just begun oncology workup this admission. -Family/emotional support: Good -Spiritual support: not explored today. Additional Medical Diagnoses with primary management by Hospitalist team include : 1. Right hip pain secondary to severe metastasis, Lung primary, present on admission ongoing workup. 2. Acute on chronic kidney injury present on admission active-- Chronic kidney disease stage III per her prior records 3. Diabetes mellitus type II chronic active 4. Hypertension chronic presumed stable 5. Hyperlipidemia chronic presumed stable 6. CAD status post bypass chronic stable-- Continue aspirin, Crestor 7. Escherichia coli bacteremia secondary to UTI, now on ciprofloxacin Problems: End of Life Preferences Full code Disposition Likely home in the next 1-2 days Resuscitation Status Resuscitation Status: CPR: Attempt Resuscitation ( is alternate decision -maker) POLST Updates/Changes Previous POLST?: No . Pain: Moderate Symptom management: Anxiety, Drowsiness/sleepiness, Pain Total time 35 minutes; >50% face to face with patient, providing counselling regarding plans and recommendations, and in care coordination with her medical teams. Palliative Brief Note Date of Service Jul 28, 2017 . Patient states that her pain overnight has been around 6-7/10. Dr. Yoo added Morphine ER 15 mg BID this morning. Patient says she is sick of laying in bed, and was wondering what the ultimate plan is for her. It sounds like she will go home in a day or two, and then visit for surgery to stabilize her femur. Dr. Magallanes arrived while we were speaking with the patient- he hoped that her pain medications might be cut back further (so that she would be more alert, mobile and could hopefully begin to ambulate)- 2 that and we discussed decreasing fentanyl dose further which the patient was willing to go along with. Also spoke later outside the room with Dr. Yoo and reviewed pain medications with him. Apparently, after review, her orthopedists feel that she should be discharged from the hospital to complete at least a week of antibiotics before considering surgery/pinning. Plan therefore is for her to go home in the next day or 2 and then proceed to [facility] in approximately a week. Patient's physical exam was stable today- heart sounds regular, lungs clear anterolaterally. Levon North DO Jul 28, 2017 09:25 Maverick Willard MD Jul 28, 2017 14:10
[2017-07-28 17:01] VITALS: BP 128/77; PULSE 86; RESP 16; O2SAT 92
--- NOTE | 2017-07-28 17:49 | PCM.DC.MED ---
Discharge Summary Date of Service Jul 28, 2017 Dates of Hospitalization Date of Hospital Admission Jul 15, 2017 at 14:44 Date of Discharge: Jul 28, 2017 Providers: Admitting Physician: Tiffanie Gamino DO Primary Care Physician: Manuel Villalta DO Attending Physician: Shmuel Olea MD Diagnosis at Time of Discharge Diagnosis at Time of Discharge Stage IV lung adenocarcinoma with skeletal metastases and a pathologic fracture of the right ischium and a critical lesion in the right femur head at risk of fracture, Right hip pain secondary to severe metastasis Sepsi due to UTI- Not present on admit, resolved. Acute on chronic kidney injury present on admission, resolved. Hypertension chronic presumed stable. Diabetes mellitus type II chronic active Hyperlipidemia chronic presumed stable Anxiety chronic presumed stable CAD status post bypass chronic stable Atrial Myxoma, POA, active- Chronic sleep apnea, stable. Procedures XRay, CTs & MRIs PROCEDURE: CT CHEST, ABDOMEN AND PELVIS WTIH CONTRAST ([id number]) INDICATIONS: malignancy, need to find primary TECHNIQUE: After the administration of oral and intravenous contrast, 5 mm thick sections acquired from the lung apices to the symphysis. 5 mm coronal and sagittal reformats were performed, with additional 7 mm coronal MIP reformats through the lungs. For radiation dose reduction, the following was used: automated exposure control, adjustment of mA and/or kV according to patient size. IMPRESSION: 1. Subcentimeter nodular radiopacities at the base of the right upper lobe. Differential considerations include infection and neoplasm. 2. 2 foci of masslike consolidation in the left lower lobe and left hilar lobe mass with moderate narrowing of the bronchi. These findings are highly suspicious for primary pulmonary neoplasm with mediastinal priya metastasis. If clinically indicated, the larger pulmonary lesion may be amenable to percutaneous CT-guided biopsy. Alternatively, bronchoscopic biopsy may be possible for the hilar mass. 3. Low density mass within the left atrium which is increased when compared with the study dated 03/08/14. This finding suggests atrial myxoma. Cardiology consult recommended. 4. Bony destruction and pathologic fracture of the right ischium. Similar destructive lesions are present within the right femoral head and proximal right diaphysis. These findings are most consistent with bony metastasis. These findings were discussed with Dr. Gamino at 3:42 PM on 07/16/17. Dictated by: Alison Cruz M.D. on 07/16/2017 at 15:19 Approved by: Alison Cruz M.D. on 07/16/2017 at 15:48 -------- PROCEDURE: X-RAY RIGHT FEMUR, TWO VIEWS ([id number]) INDICATIONS: to check for down stream fracture COMPARISON: None. FINDINGS: Bones: No fractures or dislocations. No suspicious bony lesions. Soft tissues: No suspicious soft tissue calcifications or masses. IMPRESSION: No fracture of the femur is found there is moderately severe to severe medial compartment degenerative knee joint osteoarthritis at the right knee with near [id number] articulation. Dictated by: Redd Burdick M.D. on 07/16/2017 at 19:12 Approved by: Redd Burdick M.D. on 07/16/2017 at 19:13 --- ROCEDURE: MRI BRAIN WITH AND WITHOUT CONTRAST ([id number]) INDICATIONS: Mets IMPRESSION: 1. 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 2. No metastatic brain disease seen. 3. Degree of cerebral atrophy appears normal for age. There are scattered bright flair signal changes that did not enhance, post consistent with small vessel ischemic change, possibility of demyelinating disease not excluded. Dictated by: Gallo Sanchez M.D. on 07/17/2017 at 11:26 Approved by: Gallo Sanchez M.D. on 07/17/2017 at 11:40 PROCEDURE: CT-GUIDED BIOPSY OF THE LUNG OR MEDIASTINUM ([id number]) Sedation analgesia for 30 minutes. INDICATIONS: lung mass biopsy IMPRESSION: Successful CT-guided biopsy of a left lung mass. Dictated by: Alison Cruz M.D. on 07/17/2017 at 11:27 Approved by: Alison Cruz M.D. on 07/17/2017 at 11:28 Brief History Per HPI on 07/[address] Gamino Mrs. Brii Ruiz is 61-year-old white female with past medical history of hypertension, diabetes, CAD, anxiety disorder presenting as a direct admit from Dr. Magallanes's office. Patient has had pain in her hip or to 3 months, was seen by her PCP for some time, apparently I will initiate treatments have failed and they have ordered an MRI which showed concern for metastatic disease prompting referral to the cancer Center. She was visiting with Dr. Magallanes for the first time today and she was noted to be in terrible severe pain even as she was getting out of her car. She was given hydrocodone, which she says has she has not taken in 2 days due to that medication making him feel anxious. Patient states that she has been taking Tylenol 3, which helped some. She also has chronic right hip pain. She states that she has no GI, urine symptoms. She denies shortness of breath large lumps or lymph nodes anywhere in her body, recent fevers or chills, recent weight loss or weight gain. She does endorse tingling in her feet and fingers which apparently is chronic for her. She denies edema in her legs. She has no headaches, numbness tingling otherwise, or dizziness. Her vital signs on arrival were stable temperature is 36.5 respirations 24 pulse 97 she was saturating fully on room air at 97%, blood pressure 132/64. Records reveal MRI pelvis that was taken on 06/26/17 showed "Several marrow space occupying lesions involve the right femoral head and neck, as well as the right ischial tuberosity, and posterior left femoral head and neck. The largest lesion involves the right femoral neck, with concomitant risk of pathologic fracture. Patchy peripheral interstitial edema within the right hip adductor musculature, presumably reactive to the nearby marrow space occupying lesions." It appears that lab work was ordered this a.m. that reveals white count of 12.6 , hemoglobin of 12.3, hematocrit 36.6, platelets 207, sodium 134 potassium 4.1 chloride 100 bicarbonate 18 B UN 35 and creatinine 1.87 increased from a baseline of 1.49 on 06/19/17. Patient also tells me that she was recently diagnosed diabetic. Hospital Course This is a 61-year-old female presenting today after having been seen at the cancer center for an MRA results that showed metastasis in the hip pelvic region. She was in such severe pain that she was sent to the hospital for adequate pain control. New diagnosis stage IV lung adenocarcinoma diagnosed during this hospitalization with skeletal metastases and a pathologic fracture of the right ischium and a critical lesion in the right femur head at risk of fracture. s/p XRT on 07/24 Stage IV lung adenocarcinoma with skeletal metastases and a pathologic fracture of the right ischium and a critical lesion in the right femur head at risk of fracture, POA, active- Was dx during this admission. Lung adenocarcinoma per early path reports per Dr. Magallanes from CT guided bx. -Per Ortho, Dr. Beto Grande, pt is at very high risk of hip fracture due to tumor burden, should not be bearing weight, [facility]. Dr. Magallanes has talked to Dr. Gerardo Ellis who has reviewed the images and rec prophylactic fixation of the right femur head with theresa. - 07/22- Current plan of transfer her to [facility] was put on hold due to +Blood Cx and Urine Cx, E Coli. Oncology- Dr. Magallanes following, new plan was we did one time high dose XRT with Dr. Thompson on 07/24. - Per Dr. Magallanes, anticipate that the patient can start chemotherapy approximately two weeks after hip surgery. - 07/28- Dr. Ellis from [facility] has accepted patient for transfer for anticipation of surgery at date yet to be determine. Right hip pain secondary to severe metastasis unknown primary, present on admission ongoing -- Patient was given 0.5 IV Dilaudid at the time of arrival which brought her pain down to 6 out of 10 -- Femur x-ray ordered and showed no concern for R Femur fx. I personally reviewed this x-ray. -- Palliative care is contacted, they have seen the patient. We appreciate the recommendations -- Upon Discharge, MC Contin long acting, Fentanyl patch, Dilaudid po prn, and Dilaudid IV prn. Pt has had decreased breakthrough requirements since adding long acting MC Contin. Sepsi due to UTI- Not present on admit, resolved. 07/21 Blood Cx and Urine Cx, E Coli. Fever 38.2. Pt leukocysotis has improved 10/25->8.4. Source tucker catheter. - Repeat Urinalysis and Blood Cultures on 07/26- have shown no growth indicating infection cleared. - Antibiotics Ciprofloxacin started 07/22, can continue for 10 days total. - Consulted ID, Dr Ramírez. Acute on chronic kidney injury present on admission, resolved. -- Chronic kidney disease stage III per her prior records. Scr baseline appears ~ 1.0. Pt currently back to baseline. -- IV fluids were discontinued on 07/18/17, resumed 07/23 as pt appeared hypovolemic. - Hold Nephrotoxic meds. - Consider stopping IVF if volume overloaded. - Monitor I/O. Encourage PO intake, supplement w/ IVF if falls behind to avoid further BRENDA. Hypertension chronic presumed stable -- Restarted home medications losartan 07/18/17, held again 07/23. Diabetes mellitus type II chronic active -- Hold home medication metformin by mouth -- Low scale sliding scale. -- Diabetic diet Hyperlipidemia chronic presumed stable -- We will continue home medication Anxiety chronic presumed stable -- Ativan 0.5 3 times a day when necessary by mouth for palliative care CAD status post bypass chronic stable -- Continue aspirin, Crestor Atrial Myxoma, POA, active- worsened since 2013 -Myxoma was previously noted on a CT PE protocol performed in February 2014, but it has grown slightly from 2 cm in diameter to now 3 cm in diameter. 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 Past stress was negative. Continue med management ASA, BB, Statin. recommend outpatient cardiology consultation and outpatient cardiothoracic surgery followup Chronic sleep apnea, stable. -oxygen nightly as needed. DVT prophylaxis with enoxaparin 40 mg daily subcutaneous CODE STATUS full code Alternate decision-maker , then the 3 children Dispo- Dr. Ellis from [facility] has accepted patient for transfer for anticipation of surgery at date yet to be determine. - Upon Discharge, MC Contin long acting, Fentanyl patch, Dilaudid po prn, and Diluadid IV prn. Pt has had decreased breakthrough requirements since adding long acting MC Contin. - Held home med Losartan due to low blood pressure with pain meds. Can add back once tolerates. - Ativan 0.5 3 times a day when necessary - Monitor I/O. Encourage PO intake, supplement w/ IVF if falls behind to avoid further AK - Eventual follow up with Cardiology as outpatient. - Follow up with Oncology after discharge form [facility]. Anticipate that the patient can start chemotherapy approximately two weeks after hip surgery. Will also decide on further radiation treatments at that time. Exam Vital Signs (Last) Date Time Temp Pulse Resp B/P Pulse Ox O2 Delivery O2 Flow Rate FiO2 07/28/17 17:01 36.7 86 16 128/77 92 Room Air 07/28/17 08:10 2.00 Test 07/15/17 18:30 8/24/17 05:46 07/16/17 20:29 07/26/17 12:40 Hemoglobin A1c 6.2% (4.8-5.6) Albumin 4.2g/dL (3.4-5.0) Prothrombin Time 10.5sec (8.1-12.5) Prothromb Time International Ratio 0.98ratio Urine Color Yellow (YELLOW) Urine Appearance Clear (CLEAR,HAZY) Urine pH 5.0 (5.0-8.0) Urine Specific [place] <1.005 (1.003-1.035) Urine Protein Negativemg/dL (NEG,TRACE) Urine Glucose (UA) Negativemg/dL (NEGATIVE) Urine Ketones Negativemg/dL (NEGATIVE) Urine Occult Blood Small (NEGATIVE) Urine Nitrite Negative (NEGATIVE) Urine Bilirubin Negative (NEGATIVE) Urine Urobilinogen Normalmg/dL (NORMAL) Urine Leukocyte Esterase Negative (NEGATIVE) Urine RBC 0-2/hpf (0-2) Urine WBC 0-5/hpf (0-5) Urine Epithelial Cells Few/hpf (NONE-MOD) Urine Crystals None seen (NONE SEEN) Urine Bacteria None/hpf (NONE-FEW) Urine Hyaline Casts None/lpf (NONE) Urine Granular Casts None seen (NONE SEEN) Urine Waxy Casts None seen (NONE SEEN) Urine Red Blood Cell Casts None seen (NONE SEEN) Urine White Blood Cell Casts None seen (NONE SEEN) Urine Mucus None seen (None Seen) Urine Trichomonas None seen (NONE SEEN) Urine Yeast None (NONE SEEN) Urinalysis Comment None Urine Culture Reflexed Not indicated Test 07/27/17 08:55 White Blood Count 7.2th/mm3 (3.8-10.1) Red Blood Count 3.06mil/mm3 (3.90-5.20) Hemoglobin 8.7g/dL (12.0-15.6) Hematocrit 27.3% (35.0-46.0) Mean Corpuscular Volume 89.2fL (81-100) Mean Corpuscular Hemoglobin 28.4pg (27.0-35.0) Mean Corpuscular Hemoglobin Concent 31.9% (32.0-37.0) Red Cell Distribution Width 14.9% (12.3-15.4) Platelet Count 205bil/L (150-400) Neutrophils (%) (Auto) 69.8% (40-74) Lymphocytes (%) (Auto) 16.3% (14-46) Monocytes (%) (Auto) 6.8% (4-12) Eosinophils (%) (Auto) 4.9% (0-5) Basophils (%) (Auto) 0.4% (0-3) Sodium Level 142mEq/L (134-144) Potassium Level 3.4mEq/L (3.5-5.2) Chloride Level 103mEq/L (97-108) Carbon Dioxide Level 23mmol/L (18-29) Blood Urea Nitrogen 17mg/dL (8-27) Creatinine 0.88mg/dL (0.57-1.00) Estimat Glomerular Filtration Rate 94mL/min (>59) Glucose Level 141mg/dL (60-99) Calcium Level 8.8mg/dL (8.5-10.1) Discharge Medications Discharge Medications Aspirin Chew (Aspirin Chew) 81 Mg Chew 81 MG PO DAILY (Reported) Cholecalciferol (Vitamin D3) (Vitamin D3) 2,000 Unit Tablet 2,000 UNIT PO DAILY (Reported) Ciprofloxacin (Cipro) 500 Mg Tablet 500 MG PO BID Prescribed by: SHMUEL OLEA MD Cyclobenzaprine (Cyclobenzaprine) 10 Mg Tablet 10 MG PO DAILY (Reported) Diclofenac Gel (Diclofenac Gel) 100 Gm Tube 1 APPLIC TOPICAL PRN (Reported) Enoxaparin Sodium (Enoxaparin Sodium) 40 Mg/0.4 Ml Syringe 40 MG SUBQ DAILY Prescribed by: SHMUEL OLEA MD Morphine Sulfate ER (Morphine Sulfate ER) 15 Mg Tablet 15 MG PO BID Prescribed by: SHMUEL OLEA MD Omeprazole (Omeprazole) 40 Mg Capsule.dr 40 MG PO DAILY (Reported) Sennosides (Senna) 8.6 Mg Tablet 17.2 MG PO BID Prescribed by: SHMUEL OLEA MD As needed ([Al Hydrox/Mg Hydrox/Simeth]) 30 ML SUSP 30 ML PO Q6H PRN PRN For Dyspepsia or Heartburn Prescribed by: SHMUEL OLEA MD Albuterol Neb Soln (Albuterol Neb Soln) 2.5 Mg/3 Ml Vial.neb 2.5 MG NEB Q4H PRN PRN For Shortness of Breath Prescribed by: SHMUEL OLEA MD Hydromorphone (Dilaudid) 2 Mg Tablet 2-4 MG PO Q3 PRN PRN For Pain Prescribed by: SHMUEL OLEA MD Hydromorphone PF (Hydromorphone PF) 1 Mg/1 Ml Syringe 1-2 MG IVPUSH Q2H PRN PRN For Pain Prescribed by: SHMUEL OLEA MD Lorazepam (Ativan) 1 Mg Tablet 0.5-1 MG PO Q4 PRN PRN For Anxiety Prescribed by: SHMUEL OLEA MD Metoclopramide Inj (Metoclopramide Inj) 5 Mg/1 Ml Vial 5 MG IVPUSH Q6H PRN PRN For Nausea/Vomiting Prescribed by: SHMUEL OLEA MD Naloxone HCl (Naloxone HCl) 0.4 Mg/1 Ml Vial 0.04 MG IVPUSH Q1MIN PRN PRN For Opiate Reversal Prescribed by: SHMUEL OLEA MD Ondansetron PF (Ondansetron PF) 4 Mg/2 Ml Vial 4-8 MG IVPUSH Q4H PRN PRN For Nausea/Vomiting Prescribed by: SHMUEL OLEA MD Additional med instructions - Pain regimen- MC Contin long acting, Fentanyl patch, Dilaudid po prn, and Diluadid IV prn. Pt has had decreased breakthrough requirements since adding long acting MC Contin. - Held home med Losartan due to low blood pressure with pain meds. Can add back once tolerates. - Ativan 0.5 3 times a day when necessary - Monitor intake fluids and output of urine. Encourage oral intake, supplement with IVF if falls behind to protect kidneys. Followup Plan Disposition: Dr. Ellis from [facility] has accepted patient for transfer for anticipation of surgery at date yet to be determine. Follow-up plan - Follow up with Oncology after discharge form [facility]. Anticipate that the patient can start chemotherapy approximately two weeks after hip surgery. Will also decide on further radiation treatments at that time. - Eventual follow up with Cardiology as outpatient. Discharge Diet: No restrictions Discharge Activity: Other (Touchdown weightbearing to protect right hip per ortho) Patient Instructions Provider: Alin Mcguire MD Time spent Greater than 30 minutes was spent in preparation of discharge with greater than 50% of that time dedicated to patient counseling and coordination of care. Shmuel Olea MD Jul 28, 2017 17:49
[2017-07-28] MEDS ORDERED: CIPR-231 PO (17:56)
[2017-07-28] MEDS ORDERED: ALBU2.5V4 NEB (17:56)
[2017-07-28] MEDS ORDERED: Al Hydrox/Mg Hydrox/Simeth PO (17:56)
[2017-07-28] MEDS ORDERED: MORP-32 PO (17:56)
[2017-07-28] MEDS ORDERED: [UNRECOGNIZED DRUG - CODE] IVPUSH (17:56)
[2017-07-28] MEDS ORDERED: HYDR1DIS3 IVPUSH (17:56)
[2017-07-28] MEDS ORDERED: ENOX40DI8 SUBQ (17:56)
[2017-07-28] MEDS ORDERED: METO5VIA3 IVPUSH (17:56)
[2017-07-28] MEDS ORDERED: LORA-303 PO (17:56)
[2017-07-28] MEDS ORDERED: SENN-133 PO (17:56)
[2017-07-28] MEDS ORDERED: HYDR2TAB27 PO (17:56)
[2017-07-28] MEDS ORDERED: ONDA4VIA27 IVPUSH (17:56)
--- NOTE | 2017-07-28 17:57 | PCM.DIMED ---
Discharge Instructions Date of Service Jul 28, 2017 Dates of Hospitalization Jul 15, 2017 at 14:44 Discharge Diagnosis Discharge Diagnosis Stage IV lung adenocarcinoma with skeletal metastases and a pathologic fracture of the right ischium and a critical lesion in the right femur head at risk of fracture, Right hip pain secondary to severe metastasis Sepsi due to UTI- Not present on admit, resolved. Acute on chronic kidney injury present on admission, resolved. Hypertension chronic presumed stable. Diabetes mellitus type II chronic active Hyperlipidemia chronic presumed stable Anxiety chronic presumed stable CAD status post bypass chronic stable Atrial Myxoma, POA, active- Chronic sleep apnea, stable. Medication Instructions Additional med instructions - Pain regimen- MC Contin long acting, Fentanyl patch, Dilaudid po prn, and Diluadid IV prn. Pt has had decreased breakthrough requirements since adding long acting MC Contin. - Held home med Losartan due to low blood pressure with pain meds. Can add back once tolerates. - Ativan 0.5 3 times a day when necessary - Monitor intake fluids and output of urine. Encourage oral intake, supplement with IVF if falls behind to protect kidneys. Diet Discharge Diet: No restrictions Activity Discharge Activity: Other (Touchdown weightbearing to protect right hip per ortho) Patient Instructions Patient Instructions Follow-up plan - Follow up with Oncology after discharge form [facility]. Anticipate that the patient can start chemotherapy approximately two weeks after hip surgery. Will also decide on further radiation treatments at that time. - Eventual follow up with Cardiology as outpatient. Provider: Alin Mcguire MD, Navdeep MD Jul 28, 2017 17:57
--- NOTE | 2017-07-28 19:13 | CCS NOTE ---
[facility] [address] [address] MEDICAL ONCOLOGY OFFICE NOTE PATIENT: LEXY ARANGO : 1955 MR#: [id number] DATE: 07/15/2017 JOB ID: [id number] DATE: 07/28/2017 The patient complains of feeling tired of lying in bed all the time. Her pain is partially controlled. She is on still 100 mcg of fentanyl patch and has been started on long-acting morphine on admission by the hospitalist team. Her blood culture has remained negative in the second set and she has responded to the antibiotics for her E. coli UTI/bacteremia. Lab studies show stabilization of elevated creatinine. She is anemic with a hemoglobin around 8.5. ASSESSMENT AND PLAN: A 61-year-old lady with stage IV newly diagnosed lung adenocarcinoma with a pathologic fracture of the right ischium. Before the Day weekend on July 24, she received a single fraction of radiation therapy to the right ischium. the current situation with Dr. Willard of palliative care, as well as the hospitalist team. The current plan is to further reduce the long-acting pain medication to reduce sedation and contact [facility], Dr. Gerardo Ellis, to see whether they are agreeable with transfer for the prophylactic fixation of the right femur. We anticipate to start chemotherapy in a couple of weeks after the critical lesion in the right femur has been addressed.
== END 2017-07-28 18:25 | disposition short-term general hospital (02) | DRG 947 ==
LOC: OSC 14:44
PROVIDERS: ADMIT Family Medicine; ATTEND Family Medicine
PROC: 0BBL3ZX Excision of Left Lung, Percutaneous Approach, Diagnostic (ICD-10-PCS; principal; 2017-07-17)
PROC: DP082ZZ Beam Radiation of Pelvic Bones using Photons >10 MeV (ICD-10-PCS; 2017-07-24)
DX: G89.3 Neoplasm related pain (acute) (chronic) (principal); A41.51 Sepsis due to Escherichia coli [E. coli]; C79.51 Secondary malignant neoplasm of bone; N17.9 Acute kidney failure, unspecified; M84.550A Pathological fracture in neoplastic disease, pelvis, initial encounter for fracture; C34.92 Malignant neoplasm of unspecified part of left bronchus or lung; T83.511A Infection and inflammatory reaction due to indwelling urethral catheter, initial encounter; Z79.84 Long term (current) use of oral hypoglycemic drugs; M25.551 Pain in right hip; I12.9 Hypertensive chronic kidney disease with stage 1 through stage 4 chronic kidney disease, or unspecified chronic kidney disease; E11.22 Type 2 diabetes mellitus with diabetic chronic kidney disease; N18.3 Chronic kidney disease, stage 3 (moderate); E78.5 Hyperlipidemia, unspecified; I25.10 Atherosclerotic heart disease of native coronary artery without angina pectoris; Z95.1 Presence of aortocoronary bypass graft; F41.9 Anxiety disorder, unspecified; Z87.891 Personal history of nicotine dependence; D21.3 Benign neoplasm of connective and other soft tissue of thorax; G47.30 Sleep apnea, unspecified